=== PATIENT | female | born 1950 | race Caucasian/White ===

== ENCOUNTER → 2017-03-10 10:05 | Outpatient (CLI) | payer MEDICARE, OTHER, SELFPAY ==
[2017-03-10 12:19] LABS: Absolute Lymphocyte Count 1.95 X10^3/ul (0.83-4.51); Absolute Neutrophil Count 3.7 X10^3/uL (2.0-7.7); Basophil# 0.02 X10^3/uL; Basophil% 0.3 % (0-1); Eosinophil# 0.23 X10^3/uL; Eosinophils% 3.6 % (0-5); Hemoglobin 13.3 g/dl (12.0-15.0); Lymphocyte # 1.95 X10^3/ul (4.0); Lymphocyte % 30.3 % (19-41); Mean Corp Hgb Conc 32.4 g/gl (32-36); Mean Corpuscular Hgb 29.4 pg (27.0-32.0); Mean Corpuscular Volume 90.5 fL (81-99); Mean Platelet Vol. 10.4 fl (6.2-12.0); Monocyte% 7.8 % (0-10); Neutrophil # 3.72 X10^3/uL (2.7-7.7); Neutrophil % 57.8 % (47-70); Platelet Count 312 K/mm3 (150-450); RBC Distribution Width CV 12.4 % (11.6-14.6); RBC Distribution Width SD 40.2 fl (35.1-43.9); Red Blood Count 4.53 M/mm3 (4.2-5.4); White Blood Count 6.4 K/mm3 (4.4-11.0)
[2017-03-10 12:33] LABS: ALB/GLOB Ratio 1.1 RATIO (0.9-2.4); AST(SGOT) 23 U/L (15-37); Alanine Aminotransfer ALT/SGPT 25 U/L (13-56); Albumin, Serum 3.8 g/dL (3.2-5.0); Alkaline Phosphatase 57 U/L (45-117); Anion Gap 6 (5-15); BUN 16 mg/dL (7-18); BUN/Creat Ratio 19.7 RATIO (10-20); Calcium,Total 9.4 mg/dL (8.5-10.1); Chloride 105 mmol/L (98-107); Creatinine, Serum 0.81 mg/dL (0.55-1.02); EST Glomerular Filtration Rate 74 mL/min (>60); Est Glom Filt Rate - Afr Amer 90 mL/min (>60); Globulin 3.6 g/dL (2.2-4.2); Glucose 88 mg/dL (70-110); Protein, Total 7.4 g/dL (6.4-8.2); Sodium Level 142 mmol/L (136-145); T4 Total, Thyroxin 11.9 ug/dL (4.8-13.9); Thyroid Stim Hormone (TSH) 0.05 uIU/mL (0.358-3.74)
[2017-03-10 12:40] LABS: POSITIVE COUNT NO; POSITIVE DIFFERENTIAL NO; POSITIVE MORPHOLOGY NO
== END ==
PROVIDERS: Family Provider Family Medicine; PCP Family Medicine; Visit Provider Family Medicine
DX: E03.9 Hypothyroidism, unspecified (principal); R53.83 Other fatigue
CPT/HCPCS: 36415; 80053; 84436; 84443; 85025

== ENCOUNTER → 2017-04-20 07:29 | Outpatient (CLI) | payer MEDICARE, OTHER, SELFPAY ==
--- NOTE | 2017-04-20 07:32 | HPBI_ITS ---
MAMMOGRAPHY - BILATERAL SCREENING REASON FOR EXAM: Female, 67 years old. Routine annual screening examination. PERTINENT HISTORY: Grandmother with breast cancer. TECHNIQUE: Digital bilateral breast albert (3D mammographic acquisition) in the CC and MLO projections. 2-D mediolateral oblique (MLO) and craniocaudad (CC) views of both breasts were obtained. CAD: Full Field Digital Mammography with Computer Added Detection was performed. COMPARISON: Comparison is made with prior study dated April 18, 2016 and March 11, 2015. FINDINGS: Breast Composition: The breasts are almost entirely fatty. There are no dominant masses or suspicious calcifications. Stable benign-appearing bilateral axillary lymph nodes. No other significant abnormalities are identified. There has been no significant change since the prior study. HPBI/SCREENING MAMM (CAD), BILAT IMPRESSION: Stable bilateral screening mammogram. Yearly follow-up mammogram recommended. (A) ASSESSMENT CATEGORY: BIRADS Category 2: Benign. A letter regarding these results will be sent to the patient by the facility within 30 days. Approximately 10% of breast cancers are not detected by mammography. A normal mammogram should not delay biopsy of a clinically suspicious abnormality. [id number] Electronically Signed: Maurisio Aquino MD at 8:56 EDT Tel [phone], Service support ,
== END ==
PROVIDERS: Family Provider Family Medicine; PCP Family Medicine; Visit Provider Family Medicine
DX: Z12.31 Encounter for screening mammogram for malignant neoplasm of breast (principal)
CPT/HCPCS: 77063; 77067

== ENCOUNTER → 2017-04-21 17:35 | Outpatient (CLI) | payer MEDICARE, OTHER, SELFPAY | PROVIDERS: Family Provider Family Medicine; PCP Family Medicine; Visit Provider Family Medicine | DX: R05 Cough (principal) | CPT/HCPCS: 87804 ==

== ENCOUNTER → 2017-05-31 08:55 | Outpatient (CLI) | payer MEDICARE, OTHER, SELFPAY ==
[2017-05-31 10:07] LABS: Thyroid Stim Hormone (TSH) 0.66 uIU/mL (0.358-3.74)
== END ==
PROVIDERS: Family Provider Family Medicine; PCP Family Medicine; Visit Provider Family Medicine
DX: E03.9 Hypothyroidism, unspecified (principal)
CPT/HCPCS: 36415; 84443

== ENCOUNTER → 2017-11-14 09:40 | Outpatient (CLI) | payer MEDICARE, OTHER, SELFPAY ==
--- NOTE | 2017-11-14 14:13 | PFT ---
INTRODUCTION: The patient is a 67-year-old female that presents for pulmonary function studies secondary to a diagnosis of bronchiectasis. Respiratory therapy reports good patient effort. Bronchodilators were used during testing. INTERPRETATION: Forced expiration spirometry demonstrates the presence of a moderate large airways obstructive ventilatory defect. There was no significant response to aerosolized bronchodilators. Spirograms and flow volume loop are consistent with obstructive lung disease. Body plethysmography was performed and reveals an elevated RV to 148% of predicted, indicative of underlying air trapping. Diffusing capacity by single breath CO is mildly reduced at 67% of predicted. When compared to previous pulmonary function studies dated 2016, there has been a 14% reduction in DLCO. IMPRESSION: These pulmonary function studies demonstrate the presence of an irreversible moderate large airways obstructive ventilatory defect with associated air trapping and mild reduction in diffusing capacity.
== END ==
PROVIDERS: Family Provider Family Medicine; PCP Family Medicine; Referring Provider Internal Medicine Critical Care Medicine; Visit Provider Internal Medicine Critical Care Medicine
DX: J45.40 Moderate persistent asthma, uncomplicated (principal); J47.9 Bronchiectasis, uncomplicated
CPT/HCPCS: 94060; 94726; 94729

== ENCOUNTER → 2017-11-17 10:48 | Outpatient (CLI) | payer MEDICARE, OTHER, SELFPAY ==
[2017-11-17 11:00] VITALS: PULSE 100; PULSE 82; PULSE 86; PULSE 91; PULSE 94; PULSE 97; PULSE 99; O2SAT 90; O2SAT 91; O2SAT 92; O2SAT 93; O2SAT 97
--- NOTE | 2017-11-17 13:02 | PCM.PSN.6M ---
PSN 6 Minute Walk Test - 6 Minute Walk Test 6 Minute Walk Test: 6 Minute Walk Test PSN:6-Minute Walk Test Start: 11/17/17 11:04 Freq: Status: Active Protocol: RESP.6MINW Document 11/17/17 11:00 EW (Rec: 11/17/17 11:07 EW [id number]) 6 Minute Walk Test Date Performed 11/17/17 Time Performed 11:00 Height 5 ft 3 in Weight: 144 lb Weight in Pounds 144.[address]: Catarino Elder Assistive device used: None Pre-test Oxygen Delivery Method Room Air Pulse Ox (%) 97 Pulse Rate (60-100 beats/min) 82 Dyspnea Mini Scale (0-10) 1 Exertion Mini Scale (6-20) 6 1st minute Oxygen Delivery Method Room Air Pulse Ox (%) 93 Pulse Rate (60-100 beats/min) 91 2nd minute Oxygen Delivery Method Room Air Pulse Ox (%) 90 Pulse Rate (60-100 beats/min) 94 3rd minute Oxygen Delivery Method Room Air Pulse Ox (%) 91 Pulse Rate (60-100 beats/min) 99 4th minute Oxygen Delivery Method Room Air Pulse Ox (%) 91 Pulse Rate (60-100 beats/min) 97 5th minute Oxygen Delivery Method Room Air Pulse Ox (%) 90 Pulse Rate (60-100 beats/min) 99 6th minute Oxygen Delivery Method Room Air Pulse Ox (%) 92 Pulse Rate (60-100 beats/min) 100 Post-test Oxygen Delivery Method Room Air Pulse Ox (%) 97 Pulse Rate (60-100 beats/min) 86 Dyspnea Mini Scale (0-10) 3 Exertion Mini Scale (6-20) 8 Full Laps Walked 20 Partial Lap, Number of Tiles Walked 0 Total Distance Walked (ft) 1180 - Interpretation Interpretation: The patient ambulated 1180 feet over the course of 6 minutes beginning on room air without assistive devices or breaks. Pretesting oxygen saturation was noted to be 97% on room air. With ambulation, the wendy oxygen saturation was 90%. This represents a significant exertional oxygen desaturation. - Recommendations Recommendations: There is no indication for the use of supplemental oxygen at this time. However, close interval follow-up is recommended, given the degree of oxygen desaturation noted during this study.
== END ==
PROVIDERS: Family Provider Family Medicine; PCP Family Medicine; Referring Provider Internal Medicine Critical Care Medicine; Visit Provider Internal Medicine Critical Care Medicine
DX: J47.9 Bronchiectasis, uncomplicated (principal); J45.40 Moderate persistent asthma, uncomplicated
CPT/HCPCS: 94618

== ENCOUNTER → 2018-01-09 09:04 | Outpatient (CLI) | payer MEDICARE, OTHER, SELFPAY ==
[2018-01-09 11:28] LABS: Thyroid Stim Hormone (TSH) 3.89 uIU/mL (0.358-3.74)
== END ==
PROVIDERS: Family Provider Family Medicine; PCP Family Medicine; Visit Provider Family Medicine
DX: E03.9 Hypothyroidism, unspecified (principal)
CPT/HCPCS: 36415; 84443

== ENCOUNTER → 2018-04-13 07:54 | Outpatient (CLI) | payer MEDICARE, OTHER, SELFPAY ==
[2018-02-07 07:44] VITALS: BMI 27.1
--- NOTE | 2018-04-13 07:59 | RAD_ITS ---
STUDY: X-RAY - LUMBAR SPINE REASON FOR EXAM: Female, 68 years old. Back pain TECHNIQUE: 3 view(s) of the lumbar spine were obtained. COMPARISON: None FINDINGS: There is a 41 degree thoracolumbar scoliosis with convexity to the right with the apex at L1. There are degenerative changes at L1-L2 and L2-3. No acute fractures. The upper lumbosacral spine is slightly rotated to the left Electronically Signed: Warren Bobby MD at 8:01 EST Tel , Service support , RAD/Lumbar Spine 2 or 3 Views
== END ==
PROVIDERS: Family Provider Family Medicine; PCP Family Medicine; Referring Provider Anesthesiology Pain Medicine; Visit Provider Anesthesiology Pain Medicine
DX: M54.9 Dorsalgia, unspecified (principal)
CPT/HCPCS: 72100

== ENCOUNTER → 2018-04-23 13:05 | Outpatient (CLI) | payer MEDICARE, OTHER, SELFPAY ==
[2018-02-07 07:44] VITALS: BMI 27.1
--- NOTE | 2018-04-23 13:09 | BI_ITS ---
MAMMOGRAPHY - BILATERAL SCREENING REASON FOR EXAM: Female, 68 years old. Routine annual screening examination. PERTINENT HISTORY: FM HX MAT [facility] 68'S TECHNIQUE: Digital bilateral breast albert (3D mammographic acquisition) in the CC and MLO projections. 2-D mediolateral oblique (MLO) and craniocaudad (CC) views of both breasts were obtained. CAD: Full Field Digital Mammography with Computer Added Detection was performed. COMPARISON: None. FINDINGS: Breast Composition: The breasts are almost entirely fatty. There are no dominant masses or suspicious calcifications. No other significant abnormalities are identified. BI/SCREENING MAMM (CAD), BILAT IMPRESSION: Stable bilateral screening mammogram. Yearly follow-up mammogram recommended. (A) ASSESSMENT CATEGORY: BIRADS Category 2: Benign. A letter regarding these results will be sent to the patient by the facility within 30 days. Approximately 10% of breast cancers are not detected by mammography. A normal mammogram should not delay biopsy of a clinically suspicious abnormality. [id number] Electronically Signed: Joi Jasmine, at 17:30 EDT Tel , Service support ,
== END ==
PROVIDERS: Family Provider Family Medicine; PCP Family Medicine; Referring Provider Family Medicine; Visit Provider Family Medicine
DX: Z12.31 Encounter for screening mammogram for malignant neoplasm of breast (principal)
CPT/HCPCS: 77063; 77067

== ENCOUNTER → 2018-04-25 14:51 | Outpatient (CLI) | payer MEDICARE, OTHER, SELFPAY ==
[2018-04-25 14:06] VITALS: BMI 25.3
== END ==
PROVIDERS: Family Provider Family Medicine; PCP Family Medicine; Referring Provider Nurse Practitioner Acute Care; Visit Provider Nurse Practitioner Acute Care
DX: J47.9 Bronchiectasis, uncomplicated (principal)
CPT/HCPCS: 87070; 87077; 87186; 87205; 87633

== ENCOUNTER → 2018-05-25 08:06 | Outpatient (CLI) | payer MEDICARE, OTHER, SELFPAY ==
[2018-04-25 14:06] VITALS: BMI 25.3
--- NOTE | 2018-05-25 08:09 | RAD_ITS ---
STUDY: X-RAY - ESOPHAGUS (BARIUM SWALLOW) WITH FLUOROSCOPY REASON FOR EXAM: Female, 68 years old. Dysphagia for solids. TECHNIQUE: 18 view(s) of the esophagus were obtained following swallowing of barium. FLUOROSCOPY TIME (if supplied): (0:37) minutes/seconds COMPARISON: Comparison is made with prior study dated February 02, 2015. FINDINGS: There is no demonstrated esophageal foreign body. There is no demonstrated stricture or mucosal abnormality. Small sliding hiatal hernia with gastroesophageal reflux. The patient ingested a 12 mm tablet of barium without any difficulty. Normal visualized aortic arch and descending thoracic aorta. Normal visualized pulmonary parenchyma. There are diffuse degenerative changes of the visualized thoracic spine. RAD/Esophagus Only IMPRESSION: Small sliding hiatal hernia with evidence of gastroesophageal reflux. Electronically Signed: Maurisio Aquino, at 14:21 EDT , Service support ,
== END ==
PROVIDERS: Family Provider Family Medicine; PCP Family Medicine; Referring Provider Family Medicine; Visit Provider Family Medicine
DX: K21.9 Gastro-esophageal reflux disease without esophagitis (principal)
CPT/HCPCS: 74220

== ENCOUNTER → 2018-07-30 12:05 | Outpatient (CLI) | payer MEDICARE, OTHER, SELFPAY ==
[2018-04-25 14:06] VITALS: BMI 25.3
--- NOTE | 2018-07-30 12:11 | MRI_ITS ---
STUDY: MRI LUMBAR SPINE WITHOUT CONTRAST REASON FOR EXAM: Female, 68 years old. Back pain TECHNIQUE: Standardized fat and water weighted pulse sequences were obtained in the sagittal and axial planes. COMPARISON: 12/11/2013 FINDINGS: T12-L1: Normal endplates. Normal disc height, hydration and morphology. Normal bilateral facet joints. Normal central canal and bilateral lateral recesses. Normal bilateral intervertebral neural foramina. Normal lumbar lordosis. Severe dextroscoliosis centered at T12/L1. Normal conus medullaris that terminates at the L1/L2. L1-2: No change in the mild broad disc osteophyte complex which produces mild spinal stenosis but no neural foraminal stenosis. L2-3: Severe bilateral facet hypertrophy and moderate ligament flavum hypertrophy. No change in the 2 mm retrolisthesis of L2 on L3 with a mild broad disc protrusion which produces mild spinal stenosis, mild bilateral lateral recess stenosis and severe right neural foraminal stenosis. L3-4: Moderate bilateral facet hypertrophy and ligament flavum hypertrophy. No change in a mild bilobed disc protrusion which produces mild spinal stenosis but no neural foraminal stenosis. L4-5: Moderate bilateral facet hypertrophy and ligament flavum hypertrophy. No change in the mild broad disc protrusion which produces mild spinal stenosis and mild right neural foraminal stenosis. L5-S1: Moderate bilateral facet hypertrophy. No disc protrusion, spinal stenosis, or neural foraminal stenosis. Normal visualized sacral ala. Normal visualized paraspinous soft tissue structures. MRI/Spine Lumbar (Routine) IMPRESSION: No change from 12/11/2013. Electronically Signed: Young Crandall MD at 17:43 EDT Tel , Service support ,
== END ==
PROVIDERS: Family Provider Family Medicine; PCP Family Medicine; Referring Provider Anesthesiology Pain Medicine; Visit Provider Anesthesiology Pain Medicine
DX: M54.9 Dorsalgia, unspecified (principal); M79.606 Pain in leg, unspecified
CPT/HCPCS: 72148

== ENCOUNTER → 2018-11-13 09:36 | Outpatient (CLI) | payer MEDICARE, OTHER, SELFPAY ==
[2018-08-27 13:19] VITALS: BMI 25.3
--- NOTE | 2018-11-14 09:42 | PFT_ITS ---
INTRODUCTION: The patient is a 68-year-old female that presents for pulmonary function studies secondary to a diagnosis of respiratory failure. Respiratory therapy reports good patient effort. Bronchodilators were used during testing. INTERPRETATION: Forced expiration spirometry demonstrates the presence of a moderate large airways obstructive ventilatory defect. There was no significant response to aerosolized bronchodilators. Spirograms are of fair quality and do not plateau indicating slow emptying of the lungs. Body plethysmography was performed and reveals lung volumes to be within normal limits. Diffusing capacity by single breath CO is within normal limits as well. IMPRESSION: Irreversible moderate large airways obstructive ventilatory defect with p reserved lung volumes and diffusing capacity.
== END ==
PROVIDERS: Family Provider Family Medicine; PCP Family Medicine; Referring Provider Nurse Practitioner Acute Care; Visit Provider Nurse Practitioner Acute Care
DX: J47.9 Bronchiectasis, uncomplicated (principal)
CPT/HCPCS: 94060; 94726; 94729

== ENCOUNTER → 2018-11-20 10:50 | Outpatient (CLI) | payer MEDICARE, OTHER, SELFPAY ==
[2018-08-27 13:19] VITALS: BMI 25.3
[2018-11-20 11:37] VITALS: PULSE 100; PULSE 101; PULSE 102; PULSE 104; PULSE 86; PULSE 88; PULSE 98; PULSE 99; O2SAT 86; O2SAT 89; O2SAT 94; O2SAT 96; O2SAT 97; O2SAT 98
--- NOTE | 2018-11-20 11:42 | CPS ---
Patient states upon arrival that she wears O2 at home PRN, and monitors her own oxygen. The patient was started on RA and at the 4th minute the patient dropped to a SpO2 of 86%. 2L was added at that time. The remainder of the test was done on 2L. Rishi [facility]
--- NOTE | 2018-11-20 14:01 | WT_ITS ---
PSN 6 Minute Walk Test - 6 Minute Walk Test 6 Minute Walk Test: 6 Minute Walk Test PSN:6-Minute Walk Test Start: 11/20/18 11:37 Freq: Status: Active Protocol: RESP.6MINW Document 11/20/18 11:37 COCO (Rec: 11/20/18 11:46 [id number]) 6 Minute Walk Test Date Performed 11/20/18 Time Performed 11:00 Height 5 ft [address]: Tawanna Anderson Assistive device used: None Pre-test Oxygen Delivery Method Room Air Pulse Ox (%) 96 Pulse Rate (60-100 beats/min) 86 Dyspnea Mini Scale (0-10) 1 Exertion Mini Scale (6-20) 6 1st minute Oxygen Delivery Method Room Air Pulse Ox (%) 94 Pulse Rate (60-100 beats/min) 99 2nd minute Oxygen Delivery Method Room Air Pulse Ox (%) 89 Pulse Rate (60-100 beats/min) 100 3rd minute Oxygen Delivery Method Room Air Pulse Ox (%) 89 Pulse Rate (60-100 beats/min) 104 H 4th minute Oxygen Delivery Method Room Air Pulse Ox (%) 86 Pulse Rate (60-100 beats/min) 101 H Dyspnea Mini Scale (0-10) 2 Exertion Mini Scale (6-20) 11 5th minute Oxygen Flow Rate (L/min) (L/min) 2 Oxygen Delivery Method Nasal Cannula Pulse Ox (%) 98 Pulse Rate (60-100 beats/min) 98 6th minute Oxygen Flow Rate (L/min) (L/min) 2 Oxygen Delivery Method Nasal Cannula Pulse Ox (%) 97 Pulse Rate (60-100 beats/min) 102 H Dyspnea Mini Scale (0-10) 2 Exertion Mini Scale (6-20) 11 Post-test Oxygen Flow Rate (L/min) (L/min) 2 Oxygen Delivery Method Nasal Cannula Pulse Ox (%) 97 Pulse Rate (60-100 beats/min) 88 Full Laps Walked 22 Partial Lap, Number of Tiles Walked 0 Total Distance Walked (ft) 1298 11/20/18 11:42 Cardiopulmonary Services by Beryl Nelson Patient states upon arrival that she wears O2 at home PRN, and monitors her own oxygen. The patient was started on RA and at the 4th minute the patient dropped to a SpO2 of 86%. 2L was added at that time. The remainder of the test was done on Concha Hitchcockhomero [facility] Initialized on 11/20/18 11:42 - END OF NOTE - Interpretation Interpretation: The patient was noted to be 96% on room air. Patient did desaturate to 86% in the fourth minute of ambulation and was placed on 2 L nasal cannula. Patient was able to complete testing following addition of oxygen. In total, the patie nt traveled 1298 feet over the course of 6 minutes with no assistive devices and one break. These findings are consistent with a respiratory limitation exercise tolerance. - Recommendations Recommendations: No supplemental oxygen is indicated at rest, but patient should be using 2 L nasal cannula with any exertion.
== END ==
PROVIDERS: Family Provider Family Medicine; PCP Family Medicine; Referring Provider Nurse Practitioner Acute Care; Visit Provider Nurse Practitioner Acute Care
DX: J96.11 Chronic respiratory failure with hypoxia (principal)
CPT/HCPCS: 94618

== ENCOUNTER → 2019-05-15 11:12 | Outpatient (CLI) | payer MEDICARE, OTHER, SELFPAY ==
[2018-12-27 06:12] VITALS: BMI 23.1
[2019-05-15 13:04] LABS: T4 Total, Thyroxin 13.3 ug/dL (4.8-13.9); Thyroid Stim Hormone (TSH) 0.29 uIU/mL (0.358-3.74)
== END ==
PROVIDERS: PCP Family Medicine; Referring Provider Family Medicine; Visit Provider Family Medicine
DX: E03.9 Hypothyroidism, unspecified (principal)
CPT/HCPCS: 36415; 84436; 84443

== ENCOUNTER → 2019-05-29 09:15 | Outpatient (CLI) | payer MEDICARE, OTHER, SELFPAY ==
[2018-12-27 06:12] VITALS: BMI 23.1
--- NOTE | 2019-05-29 09:17 | BI_ITS ---
MAMMOGRAPHY - BILATERAL SCREENING REASON FOR EXAM: Female, 69 years old. Routine annual screening examination. PERTINENT HISTORY: Grandmother with breast cancer. TECHNIQUE: Digital bilateral breast janeth (3D mammographic acquisition) in the CC and MLO projections. 2-D mediolateral oblique (MLO) and craniocaudad (CC) views of both breasts were obtained. CAD: Full Field Digital Mammography with Computer Added Detection was performed. COMPARISON: Comparison is made with prior examination dated April 23, 2018 and April 21, 2007. FINDINGS: Breast Composition: The breasts are almost entirely fatty. There are no dominant masses or suspicious calcifications. No other significant abnormalities are identified. There has been no significant change since the prior study. BI/SCREEN MAMM (CAD) W/JANETH BILAT IMPRESSION: Stable bilateral screening mammogram. Yearly follow-up mammogram recommended. (A) ASSESSMENT CATEGORY: BIRADS Category 1: Negative. A letter regarding these results will be sent to the patient by the facility within 30 days. Approximately 10% of breast cancers are not detected by mammography. A normal mammogram should not delay biopsy of a clinically suspicious abnormality. [id number] Electronically Signed: Maurisio Aquino, at 11:16 EDT , Service support ,
--- NOTE | 2019-05-29 09:21 | BD_ITS ---
STUDY: DUAL ENERGY X-RAY ABSORPTIOMETRY / DXA REASON FOR EXAM: Female, 69 years old. KNOCKOUT MAN -- HX OF HRT FOR SHORT WHILE IN PAST -- HX OF SMOKING- QUIT 15 YRS AGO -- USES STEROID INHALER DAILY -- TAKES THYROID MEDICATION -- TAKES CALCIUM AND MULTIVITAMIN -- DOES LITTLE EXERCISE -- BEBO OF 5 INCHES -- PT HAS SEVERE SCOLIOSIS- INCLUDED FOREARM FOR REVIEW D/T AP LUMBAR BEING NONDIAGNOSTIC FOR BMD TECHNIQUE: Bone Mineral Density (BMD) measurements of lumbar spine and bilateral hips were obtained. COMPARISON: Comparison is made with prior study dated May 30, 2016. FINDINGS: Lumbar Spine (L1-L4): g/cm2 (1.234) / T-score (0.6) / Z-score (2.3) Findings are suggestive of normal bone density with a low fracture risk. Left Femur Total: g/cm2 (0.837) / T-score (-1.4) / Z-score (0.2) Left Femoral Neck: g/cm2 (0.840) / T-score (-1.4) / Z-score (0.3) Right Femur Total: g/cm2 (0.691) / T-score (-2.5) / Z-score (-1.0) Right Femoral Neck: g/cm2 (0.786) / T-score (-1.8) / Z-score (0.1) Left Forearm: g/cm2 (0.673) / T-score (-2.3) / Z-score (-0.4) The T-Scores on the most recent prior examination were: Lumbar Spine (L1-L4): There has been improvement of bone density since the previous examination. Left Femur Total: which represents a worsening of 14.8%. Right Femur Total: which represents a worsening of 18.3%. BD/Dexa Bone Density Study IMPRESSION: The patient is considered osteoporotic as outlined below according to World Regis Organization (WHO) criteria with a high fracture risk. There has been worsening of bone density since the previous examination. Reference Information: The T-score is the number of standard deviations above or below the standard which is normal for young adults at their peak bone mineral density. The World Health Organization (WHO) interprets the T-scores as follows: Above -1 Normal bone density Between -1 and -2.5 Osteopenia Equal to / or below -2.5 Osteoporosis As a practical clinical guideline, osteopenia may be graded as follows: Mild -1 through -1.5 Moderate -1.6 through -2.0 Severe -2.1 through -2.4 The Z-score is the number of standard deviations above or below age-matched controls. A Z-score of less than -1.5 would be considered abnormal. References: 1. NIH Osteoporosis and Related Bone Diseases http://www.osteo.org 2. International Society for Clinical Densitometry http://www.iscd.org 3. National Osteoporosis Foundation http://www.nof.org Electronically Signed: Maurisio Aquino, at 10:02 EDT , Service support ,
== END ==
PROVIDERS: PCP Family Medicine; Referring Provider Family Medicine; Visit Provider Family Medicine
DX: N95.9 Unspecified menopausal and perimenopausal disorder (principal); M81.0 Age-related osteoporosis without current pathological fracture; Z12.31 Encounter for screening mammogram for malignant neoplasm of breast
CPT/HCPCS: 77063; 77067; 77080

== ENCOUNTER 2020-05-28 09:32 | Outpatient (RCR) | payer MEDICARE, SELFPAY ==
[2019-10-02 07:57] VITALS: BMI 23.1
== END 2020-07-14 23:59 ==
LOC: IMMUN 09:32
PROVIDERS: PCP Family Medicine; Referring Provider Family Medicine; Visit Provider Family Medicine
DX: Z23 Encounter for immunization (principal)
CPT/HCPCS: 0001A; 0002A; 91300

== ENCOUNTER → 2020-06-10 10:17 | Outpatient (CLI) | payer MEDICARE, SELFPAY ==
[2019-10-02 07:57] VITALS: BMI 23.1
[2020-06-10 12:41] LABS: Absolute Lymphocyte Count 2.23 X10^3/uL (0.83-4.51); Absolute Neutrophil Count 4.4 X10^3/uL (2.0-7.7); Basophil# 0.04 X10^3/uL; Basophil% 0.5 % (0-1); Eosinophil# 0.26 X10^3/uL; Eosinophils% 3.5 % (0-5); Hematocrit 42.8 % (37-47); Hemoglobin 13.2 g/dL (12.0-15.0); Lymphocyte # 2.23 X10^3/ul (0.83-4.51); Lymphocyte % 29.9 % (19-41); Mean Corp Hgb Conc 30.8 g/dL (32-36); Mean Corpuscular Hgb 28.3 pg (27.0-32.0); Mean Corpuscular Volume 91.6 fL (81-99); Monocyte# 0.49 X10^3/uL; Monocyte% 6.6 % (0-10); NRBC Flagged by Analyzer 0 % (0-5); Neutrophil # 4.41 X10^3/uL (2.7-7.7); Neutrophil % 59.2 % (47-70); Platelet Count 427 K/mm3 (150-450); RBC Distribution Width CV 12.1 % (11.6-14.6); RBC Distribution Width SD 40.6 fl (35.1-43.9); Red Blood Count 4.67 M/mm3 (4.2-5.4); White Blood Count 7.5 K/mm3 (4.4-11.0)
[2020-06-10 13:08] LABS: Anion Gap 5 (5-15); BUN 21 mg/dL (7-18); BUN/Creat Ratio 22.7 RATIO (10-20); Calcium,Total 9.4 mg/dL (8.5-10.1); Chloride 103 mmol/L (98-107); Creatinine, Serum 0.92 mg/dL (0.55-1.02); EST Glomerular Filtration Rate 63 mL/min (>60); Est Glom Filt Rate - Afr Amer 77 mL/min (>60); Glucose 85 mg/dL (74-106); Magnesium 2.1 mg/dL (1.6-2.6); Sodium Level 138 mmol/L (136-145); T4 Total, Thyroxin 14.3 ug/dL (4.8-13.9); Thyroid Stim Hormone (TSH) 0.08 uIU/mL (0.358-3.74)
== END ==
PROVIDERS: PCP Family Medicine; Referring Provider Family Medicine; Visit Provider Family Medicine
DX: E03.9 Hypothyroidism, unspecified (principal); K21.9 Gastro-esophageal reflux disease without esophagitis
CPT/HCPCS: 36415; 80048; 83735; 84436; 84443; 85025

== ENCOUNTER → 2020-07-21 11:00 | Outpatient (CLI) | payer MEDICARE, SELFPAY ==
[2019-10-02 07:57] VITALS: BMI 23.1
--- NOTE | 2020-07-21 11:02 | BI_ITS ---
MAMMOGRAPHY - BILATERAL SCREENING REASON FOR EXAM: Female, 70 years old. Routine annual screening examination. PERTINENT HISTORY: Grandmother with breast cancer. TECHNIQUE: Digital bilateral breast albert (3D mammographic acquisition) in the CC and MLO projections. 2-D mediolateral oblique (MLO) and craniocaudad (CC) views of both breasts were obtained. CAD: Full Field Digital Mammography with Computer Added Detection was performed. COMPARISON: Comparison is made with prior study dated 05/29/2019 and 04/23/2018. FINDINGS: Breast Composition: The breasts are almost entirely fatty. There are no dominant masses or suspicious calcifications. Stable benign-appearing left axillary lymph nodes. No other significant abnormalities are identified. There has been no significant change since the prior study. BI/SCREENING MAMM (CAD), BILAT IMPRESSION: Stable bilateral screening mammogram. Yearly follow-up mammogram recommended. (A) ASSESSMENT CATEGORY: BIRADS Category 2: Benign. A letter regarding these results will be sent to the patient by the facility within 30 days. Approximately 10% of breast cancers are not detected by mammography. A normal mammogram should not delay biopsy of a clinically suspicious abnormality. [id number] Electronically Signed: Maurisio Aquino MD at 12:22 EDT , Service support ,
== END ==
PROVIDERS: PCP Family Medicine; Referring Provider Family Medicine; Visit Provider Family Medicine
DX: Z12.31 Encounter for screening mammogram for malignant neoplasm of breast (principal); Z00.00 Encounter for general adult medical examination without abnormal findings
CPT/HCPCS: 77067

== ENCOUNTER → 2020-08-07 09:20 | Outpatient (CLI) | payer MEDICARE, SELFPAY ==
[2019-10-02 07:57] VITALS: BMI 23.1
[2020-08-07 10:39] LABS: Thyroid Stim Hormone (TSH) 5.95 uIU/mL (0.358-3.74)
== END ==
PROVIDERS: PCP Family Medicine; Visit Provider Family Medicine
DX: E03.9 Hypothyroidism, unspecified (principal)
CPT/HCPCS: 36415; 84443

== ENCOUNTER → 2020-08-13 11:08 | Outpatient (CLI) | payer MEDICARE, SELFPAY ==
[2019-10-02 07:57] VITALS: BMI 23.1
--- NOTE | 2020-08-13 11:10 | RAD_ITS ---
STUDY: X-RAY CHEST REASON FOR EXAM: Female, 70 years old. BRONCHIECTASIS TECHNIQUE: PA and lateral views of the chest. COMPARISON: Comparison is made with prior examination dated 04/02/2016. FINDINGS: Mild increased linear markings at the lung bases suggests mild mild scarring. There is no demonstrated pleural abnormality. Normal size heart. Normal mediastinum and gege. Normal visualized pulmonary arteries. There is atherosclerotic calcification of the aortic arch with tortuosity. There are diffuse degenerative changes of the visualized thoracic spine. Dextroscoliosis. Normal visualized ribs, clavicles, and shoulders. There is no demonstrated abnormality of the visualized soft tissue structures of the upper abdomen. RAD/Chest PA and Lateral IMPRESSION: Mild increased markings at the lung bases suggestive of scarring. Electronically Signed: Maurisio Aquino MD at 15:01 EDT , Service support ,
== END ==
PROVIDERS: PCP Family Medicine; Referring Provider Family Medicine; Visit Provider Family Medicine
DX: J47.9 Bronchiectasis, uncomplicated (principal)
CPT/HCPCS: 71046

== ENCOUNTER → 2020-10-07 11:41 | Outpatient (CLI) | payer MEDICARE, SELFPAY ==
[2020-10-07 15:45] LABS: Thyroid Stim Hormone (TSH) 0.69 uIU/mL (0.358-3.74)
== END ==
PROVIDERS: PCP Family Medicine; Referring Provider Family Medicine; Visit Provider Family Medicine
DX: E03.9 Hypothyroidism, unspecified (principal)
CPT/HCPCS: 36415; 84443

== ENCOUNTER → 2021-08-20 | Outpatient (CLI) | payer MEDICARE, SELFPAY ==
[2021-08-20 18:23] LABS: T4 Total, Thyroxin 10.9 ug/dL (4.8-13.9)
== END | disposition home or self-care (01) ==
LOC: MFPLAB 14:25
PROVIDERS: PCP Family Medicine; Referring Provider Family Medicine; Visit Provider Family Medicine
DX: E03.9 Hypothyroidism, unspecified (principal)
CPT/HCPCS: 36415; 84436; 84443

== ENCOUNTER → 2021-08-26 | Outpatient (CLI) | payer MEDICARE, SELFPAY ==
--- NOTE | 2021-08-26 12:28 | BI_ITS ---
MAMMOGRAPHY - BILATERAL SCREENING REASON FOR EXAM: Female, 71 years old. Routine annual screening examination. PERTINENT HISTORY: Grandmother with breast cancer. TECHNIQUE: Digital bilateral breast janeth (3D mammographic acquisition) in the CC and MLO projections. 2-D mediolateral oblique (MLO) and craniocaudad (CC) views of both breasts were obtained. CAD: Full Field Digital Mammography with Computer Added Detection was performed. COMPARISON: Comparison is made with prior study dated 03/23/2020 and 05/29/2019. FINDINGS: Breast Composition: The breasts are almost entirely fatty. There are no dominant masses or suspicious calcifications. Stable small benign-appearing bilateral axillary lymph nodes. No other significant abnormalities are identified. There has been no significant change since the prior study. BI/SCRN MAMM (CAD)W/JANETH BILAT IMPRESSION: Stable bilateral screening mammogram. Yearly follow-up mammogram recommended. (A) ASSESSMENT CATEGORY: BIRADS Category 2: Benign. A letter regarding these results will be sent to the patient by the facility within 30 days. Approximately 10% of breast cancers are not detected by mammography. A normal mammogram should not delay biopsy of a clinically suspicious abnormality. [id number] Electronically Signed: Maurisio Aquino MD at 13:14 EDT ,
== END | disposition home or self-care (01) ==
LOC: OPBI 12:26
PROVIDERS: PCP Family Medicine; Visit Provider Family Medicine
DX: Z12.31 Encounter for screening mammogram for malignant neoplasm of breast (principal); Z80.3 Family history of malignant neoplasm of breast
CPT/HCPCS: 77063; 77067

== ENCOUNTER → 2021-12-13 | Outpatient (CLI) | payer MEDICARE, SELFPAY ==
--- NOTE | 2021-12-13 15:33 | RAD_ITS ---
EXAM: XR LUMBOSACRAL SPINE, 2 OR 3 VIEWS CLINICAL INDICATION: DEGENERATION TECHNIQUE: Frontal and lateral views of the lumbar spine and sacrum. This report was created using [employer] report generation technology. COMPARISON: None. FINDINGS: VERTEBRAE: Prominent rotary scoliosis centered at the thoracolumbar junction region, moderate to marked dextroscoliosis centered at about L1-L2 and prominent kyphosis at the lower thoracic and accentuated lordosis of the lumbar spine. No obvious fracture is seen. No spondylolisthesis. No significant facet arthropathy. DISC SPACES: No acute findings. Disc spaces are maintained. GASTROINTESTINAL TRACT: Moderate stool in the rectosigmoid. Small hiatal hernia with gas and surgical clips near the esophageal hiatus. Unremarkable lung bases. Included bowel gas pattern is non-obstructive. RAD/Lumbar Spine 2 or 3 Views IMPRESSION: Advanced thoracolumbar scoliosis. Moderate stool in the rectosigmoid. Postoperative changes and hiatal hernia. Electronically Signed: Beba Miramontes MD at 7:22 EST ,
--- NOTE | 2021-12-13 15:40 | RAD_ITS ---
EXAM: XR THORACIC SPINE, 3 VIEWS CLINICAL INDICATION: DEGENERATION TECHNIQUE: Frontal, lateral and swimmer''s views of the thoracic spine. This report was created using [employer] report generation technology. COMPARISON: None. FINDINGS: VERTEBRAE: Moderate kyphosis of the thoracolumbar junction on the lateral view and moderate rotary dextrorotoscoliosis on the frontal view. Multilevel vacuum disks, most pronounced at what appears to be T11-T12. Marked disc space narrowing and mild endplate sclerosis at multiple cervical spinal levels with straightening of the usual lordotic curvature. Preserved vertebral body height. No fracture. No spondylolisthesis. No significant facet arthropathy. DISC SPACES: See above. LUNGS AND PLEURAL SPACES: No significant infiltrates in the medial lungs. Normal heart size. Mild peripheral calcification of the aortic arch. MEDIASTINUM: Surgical clips in the expected region of the left esophageal hiatus. Suspicion of small hiatal hernia or hernia repair. RAD/Thoracic Spine 3 Views IMPRESSION: 1. Moderate rotary dextroscoliosis of the thoracolumbar region and degenerative cervical and thoracolumbar spine changes. Lumbar spine not fully included. 2. No obviously acute spine abnormality. Postoperative change at the esophageal hiatus and small suspected hiatal hernia or hernia repair. Electronically Signed: Beba Miramontes MD at 6:10 EST ,
== END | disposition home or self-care (01) ==
LOC: RAD 15:31
PROVIDERS: PCP Family Medicine; Referring Provider Anesthesiology Pain Medicine; Visit Provider Anesthesiology Pain Medicine
DX: M51.26 Other intervertebral disc displacement, lumbar region (principal); M51.36 Other intervertebral disc degeneration, lumbar region
CPT/HCPCS: 72072; 72100

== ENCOUNTER → 2022-09-06 | Outpatient (CLI) | payer MEDICARE, SELFPAY ==
[2022-09-06 18:19] LABS: Vitamin D,25 Hydroxy 32.2 ng/mL
[2022-09-06 18:53] LABS: Cholesterol 217 mg/dL (200); High Density Lipoprotein 76 mg/dL; T4 Total, Thyroxin 12.9 ug/dL (4.8-13.9); Thyroid Stim Hormone (TSH) 1.19 uIU/mL (0.358-3.74); Triglycerides 123 mg/dL; Very Low Density Lipoprotein 25 mg/dL (5-40)
== END | disposition home or self-care (01) ==
LOC: MFPLAB 15:38
PROVIDERS: PCP Family Medicine; Visit Provider Family Medicine
DX: Z13.220 Encounter for screening for lipoid disorders (principal); E03.9 Hypothyroidism, unspecified; M81.0 Age-related osteoporosis without current pathological fracture
CPT/HCPCS: 36415; 80061; 82306; 84436; 84443

== ENCOUNTER → 2022-09-08 | Outpatient (CLI) | payer MEDICARE, SELFPAY ==
--- NOTE | 2022-09-08 07:16 | BI_ITS ---
MAMMOGRAPHY - BILATERAL SCREENING REASON FOR EXAM: Female, 72 years old. Routine annual screening examination. PERTINENT HISTORY: Grandmother with breast cancer. TECHNIQUE: Digital bilateral breast janeth (3D mammographic acquisition) in the CC and MLO projections. 2-D mediolateral oblique (MLO) and craniocaudad (CC) views of both breasts were obtained. CAD: Full Field Digital Mammography with Computer Added Detection was performed. COMPARISON: Comparison is made with prior study dated August 26, 2021 and July 21, 2020. FINDINGS: Breast Composition: The breasts are almost entirely fatty. There are no dominant masses or suspicious calcifications. Stable small benign-appearing bilateral axillary lymph nodes. No other significant abnormalities are identified. There has been no significant change since the prior study. BI/SCRN MAMM (CAD)W/JANETH BILAT IMPRESSION: Stable bilateral screening mammogram. Yearly follow-up mammogram recommended. (A) ASSESSMENT CATEGORY: BIRADS Category 2: Benign. A letter regarding these results will be sent to the patient by the facility within 30 days. Approximately 10% of breast cancers are not detected by mammography. A normal mammogram should not delay biopsy of a clinically suspicious abnormality. [id number] Electronically Signed: Maurisio Aquino MD at 8:29 EDT ,
== END | disposition home or self-care (01) ==
LOC: OPBI 07:14
PROVIDERS: PCP Family Medicine; Referring Provider Family Medicine; Visit Provider Family Medicine
DX: Z12.31 Encounter for screening mammogram for malignant neoplasm of breast (principal)
CPT/HCPCS: 77063; 77067

== ENCOUNTER → 2023-09-29 | Outpatient (CLI) | payer MEDICARE, SELFPAY ==
[2023-09-29 15:24] LABS: T4 Total, Thyroxin 12.4 ug/dL (4.8-13.9); Thyroid Stim Hormone (TSH) 0.421 uIU/mL (0.358-3.740)
== END | disposition home or self-care (01) ==
LOC: MFPLAB 11:50
PROVIDERS: PCP Family Medicine; Visit Provider Family Medicine
DX: E03.9 Hypothyroidism, unspecified (principal)
CPT/HCPCS: 36415; 84436; 84443

== ENCOUNTER → 2023-10-03 | Outpatient (CLI) | payer MEDICARE, SELFPAY ==
--- NOTE | 2023-10-03 14:01 | BI_ITS ---
MAMMOGRAPHY - BILATERAL SCREENING REASON FOR EXAM: Female, 73 years old. Routine annual screening examination. PERTINENT HISTORY: Grandmother with breast cancer. TECHNIQUE: Digital bilateral breast janeth (3D mammographic acquisition) in the CC and MLO projections. 2-D mediolateral oblique (MLO) and craniocaudad (CC) views of both breasts were obtained. CAD: Full Field Digital Mammography with Computer Added Detection was performed. COMPARISON: Comparison is made with prior study September 08, 2022 and August 26, 2021. FINDINGS: Breast Composition: The breasts are almost entirely fatty. There are no dominant masses or suspicious calcifications. No other significant abnormalities are identified. There has been no significant change since the prior study. BI/SCRN MAMM (CAD)W/JANETH BILAT IMPRESSION: Stable bilateral screening mammogram. Yearly follow-up mammogram recommended. (A) ASSESSMENT CATEGORY: BIRADS Category 1: Negative. A letter regarding these results will be sent to the patient by the facility within 30 days. Approximately 10% of breast cancers are not detected by mammography. A normal mammogram should not delay biopsy of a clinically suspicious abnormality. [id number] Electronically Signed: Maurisio Aquino MD at 15:17 EDT ,
--- NOTE | 2023-10-03 14:27 | BD_ITS ---
STUDY: DUAL ENERGY X-RAY ABSORPTIOMETRY / DXA REASON FOR EXAM: Female, 73 years old. N95.9 TECHNIQUE: Bone Mineral Density (BMD) measurements of both forearms were obtained. COMPARISON: Comparison is made with prior study May 29, 2019. FINDINGS: Right Forearm: g/cm2 (0.493) / T-score (-1.6) / Z-score (0.9) Left Forearm: g/cm2 (0.488) / T-score (-1.7) / Z-score (0.8) BD/Dexa Bone Density/Append Skel IMPRESSION: The patient is considered osteopenic as outlined below according to World Regis Organization (WHO) criteria with a moderate fracture risk. There has been improvement of bone density since the previous examination. Reference Information: The T-score is the number of standard deviations above or below the standard which is normal for young adults at their peak bone mineral density. The World Health Organization (WHO) interprets the T-scores as follows: Above -1 Normal bone density Between -1 and -2.5 Osteopenia Equal to / or below -2.5 Osteoporosis As a practical clinical guideline, osteopenia may be graded as follows: Mild -1 through -1.5 Moderate -1.6 through -2.0 Severe -2.1 through -2.4 The Z-score is the number of standard deviations above or below age-matched controls. A Z-score of less than -1.5 would be considered abnormal. References: 1. NIH Osteoporosis and Related Bone Diseases www osteo.org 2. International Society for Clinical Densitometry www iscd.org 3. National Osteoporosis Foundation www nof.org Electronically Signed: Maurisio Aquino MD at 10:02 EDT ,
== END | disposition home or self-care (01) ==
LOC: OPBD 14:01
PROVIDERS: PCP Family Medicine; Referring Provider Family Medicine; Visit Provider Family Medicine
DX: Z12.31 Encounter for screening mammogram for malignant neoplasm of breast (principal); M81.0 Age-related osteoporosis without current pathological fracture
CPT/HCPCS: 77063; 77067; 77081

== ENCOUNTER 2023-10-30 10:00 | Outpatient (RCR) | payer MEDICARE, SELFPAY ==
--- NOTE | 2023-09-05 11:21 | HP.PTEVAL_ITS ---
Patient's Visit Information Visit Information Visit Information: PATIENCE VALDES is a 73 year old F referred to Physical Therapy by Dr. Jennifer Hood MD with a diagnosis of Kyphoscoliosis and LBP. Date of Evaluation: 09/05/23 Physical Therapist: Quintin Garcia, PT, ATC Visit Plan Frequency: 1x/Week Duration: 2-4 Weeks Plan: Issue and instruct pt on HEP of core stabilization and L/S stretches Subjective Subjective: Pt reports a chronic Hx of LBP for approximately 4-5 years. Pt notes the pain has progressively worsened over this time span. Pt reports her pain limits her ability to perform bending forward activity, as well as it limits her ability to ambulate very far. Pt reports her pain radiates into B glute regions at this time. Pt reports sleep difficulty at this time as the pain awakens her around 2-3:00 in the morning. Pt has has had recent xrays which revealed kyphoscoliosis and DDD, as well as OA. Pt reports she is still able to perform house hold chores, but she is very limited secondary to pain. Pt also notes she has stairs at home and has significant difficulty with negotiating them secondary to R LB and hip pain. 3/10 pain at rest, 8/10 pain at its worst (when she is negotiating stairs) Pain LBP: Pain Intensity (Out of 10): 3 Pain Intensity Range: 8 Objective Objective: Neuro: B LE sensation is WNL to lgiht touch. MMT: B LE's are equal in strength and have no limitations ROM: Pt has full L/S ROM in all planes sit to stand 30 sec: Pt able to perform 5 reps Balance/Special Test Scores Oswestry Low Back Score: 27 Goals Goal 1:: Pt will be I with HEP in 1-2 visits Goal Time Frame: 2-4 Weeks Goal 2:: Decrease LBP x 50% to aid with sleep Goal Time Frame: 2-4 Weeks Goal 3:: Pt will perform 8 sit to stands in 30 seconds with no UE's to aid with community mobility Goal Time Frame: 2-4 Weeks Rehabilitation Potential Physical Therapy Diagnosis: Pt has back pain and difficulty with IADL's se condary to degenerative changes throughout her spine Rehabilitation Potential: Good Anticipated Interventions Patient/Client Instruction: Educate patient on: Condition and Plan of Care For the Purpose of:: To improve self management Therapeutic Exercise to Include: Strength training, Flexibilty training, Active ROM and Dynamic Lumbar Stabilization For the Purpose of:: To decrease pain and To improve muscle performance and motor function Text: Thank you for the opportunity to evaluate your patient. For Medicare and Medicare HMO plans, please review the plan of care and approve it. It will need to be FAXED BACK to us at [phone] for Medicare purposes. For Medicare only, by signing this I certify the plan of care. Please let me know if there are questions or concerns regarding this plan of care. Physician Signature: Date:
--- NOTE | 2023-10-30 10:23 | HP.PTDCSUM ---
Discharge Summary D/C summary: It has been my pleasure to treat PATIENCE VALDES referred by Dr. Jennifer Hood MD, with the diagnosis of Kyphoscoliosis and LBP for a total of 3 visit(s). Discharge Date: Please see the following information for a summary of their discharge status. Subjective Subjective: I am all better. I dont have any more pain now Pain LBP: Pain Intensity (Out of 10): 0 Overall Improvement % Improvement: 100 Objective Objective/Function: Pt is now I with HEP 0/10 LBP Pt is able to perform 8 sit to stand transfers in 19 seconds Goals Goal 1:: Pt will be I with HEP in 1-2 visits Goal Progress: Goal Met Goal 2:: Decrease LBP x 50% to aid with sleep Goal Progress: Goal Met Goal 3:: Pt will perform 8 sit to stands in 30 seconds with no UE's to aid with community mobility Goal Progress: Goal Met Plan Plan: Discharge to HEP D/C Information d/c sentence: If there are questions or concerns regarding this patient's physical therapy, please feel free to call me at [phone]. Thank you for the referral of this patient. Sincerely, Quintin Garcia, PT, ATC Balance/Gait/Functional tests Balance/Special Test Scores Oswestry Low Back Score: 6 Improvement % Improvement: 100
== END 2023-10-30 10:43 | disposition home or self-care (01) ==
LOC: PT 10:00
PROVIDERS: PCP Family Medicine; Referring Provider Family Medicine; Visit Provider Family Medicine
DX: M41.86 Other forms of scoliosis, lumbar region (principal); G89.29 Other chronic pain
CPT/HCPCS: 97110; 97161; 97530

== ENCOUNTER → 2023-11-14 | Outpatient (CLI) | payer MEDICARE, SELFPAY ==
--- NOTE | 2023-11-14 16:10 | RAD_ITS ---
INDICATION: RIGHT HIP EXAMINATION/TECHNIQUE: X-RAY - XR Hip Unilateral with Pelvis when performed; 2-3 Views COMPARISON: No relevant prior comparison study available FINDINGS: PELVIC BONES: No displaced fracture, destructive or sclerotic lesions. Note that overlapping bowel shadows may however obscure fine detail. Sacroiliac joints demonstrate mild degenerative arthrosis. No widening of the pubic symphysis. HIPS: The articular structures are unremarkable. No displaced fracture seen in this frontal view. SOFT TISSUES: No soft tissue swelling or gas. RAD/HIP, UNI W/ Pelvis 2-3 Views IMPRESSION: Mild degenerative arthrosis in the SI joints. Electronically Signed: Joi Jasmine MD at 8:09 EDT ,
== END | disposition home or self-care (01) ==
PROVIDERS: PCP Family Medicine; Referring Provider Anesthesiology Pain Medicine; Visit Provider Anesthesiology Pain Medicine
DX: M16.11 Unilateral primary osteoarthritis, right hip (principal)
CPT/HCPCS: 73502

== ENCOUNTER 2023-12-06 10:08 | Inpatient (IN) | payer MEDICARE, SELFPAY ==
[2023-12-06] VITALS (14 sets, daily range): BP systolic 107–138; BP diastolic 55–71; PULSE 74–101; RESP 14–22; TEMP 35.7–37.4; O2SAT 94–97; BMI 25.1
[2023-12-06 10:42] LABS: Absolute Lymphocyte Count 1.91 X10^3/uL (0.83-4.51); Absolute Neutrophil Count 19.2 X10^3/uL (2.0-7.7); Basophil# 0.04 X10^3/uL; Basophil% 0.2 % (0-1); Eosinophil# 0.02 X10^3/uL; Eosinophils% 0.1 % (0-5); Hematocrit 40.2 % (37-47); Hemoglobin 13.2 g/dL (12.0-15.0); Lymphocyte # 1.91 X10^3/ul (0.83-4.51); Lymphocyte % 8.4 % (19-41); Mean Corp Hgb Conc 32.8 g/dL (32-36); Mean Corpuscular Hgb 29.1 pg (27.0-32.0); Mean Corpuscular Volume 88.7 fL (81-99); Mean Platelet Vol. 9.5 fl (6.2-12.0); Monocyte# 1.28 X10^3/uL; Monocyte% 5.6 % (0-10); NRBC Flagged by Analyzer 0 % (0-5); Neutrophil # 19.18 X10^3/uL (2.7-7.7); Neutrophil % 84.5 % (47-70); Platelet Count 309 K/mm3 (150-450); RBC Distribution Width CV 12.4 % (11.6-14.6); RBC Distribution Width SD 40.1 fl (35.1-43.9); Red Blood Count 4.53 M/mm3 (4.2-5.4); White Blood Count 22.7 K/mm3 (4.4-11.0)
[2023-12-06 11:03] LABS: Anion Gap 6 (5-15); BUN 15 mg/dL (7-18); BUN/Creat Ratio 14.9 RATIO (10-20); Calcium,Total 9.3 mg/dL (8.5-10.1); Chloride 98 mmol/L (98-107); Creatinine, Serum 1.01 mg/dL (0.55-1.02); EST Glomerular Filtration Rate 57 mL/min (>60); Est Glom Filt Rate - Afr Amer 69 mL/min (>60); Estimated Creatinine Clearance 42.41 ml/min; Glucose 138 mg/dL (74-106); Potassium 4.2 mmol/L (3.5-5.1); Sodium Level 134 mmol/L (136-145)
[2023-12-06] MEDS: Ipratropium/Albuterol Sulfate 3 ML AMPUL.NEB INHALATION (11:07)
[2023-12-06] MEDS: Albuterol 2.5 MG/3 ML VIAL.NEB. INHALATION ×2 (11:07→19:11)
[2023-12-06 11:56] LABS: Red Blood Cells-Urine 0 SEEN /hpf (0-5); Squamous Epithelial Cells - UA 0 SEEN /hpf (5-10)
[2023-12-06 12:31] LABS: Color, Urine Yellow (Yellow); Glucose, Dipstick Normal (Normal); Ketone-Dipstick 50 mg/dl (Negative); Leukocyte Esterase-Dipstick 500 /ul (Negative); Nitrite-Dipstick Negative (Negative); Occult Blood-Urine 10 /ul (Negative); Protein-Dipstick 30 mg/dl (Negative); Specific Gravity, Urine 1.015 (1.002-1.030); Urine Bilirubin Dipstick Negative (Negative); Urine Clarity Sl. Cloudy (Clear); Urine Urobilinogen 1 mg/dl (Normal)
[2023-12-06 12:37] LABS: ALB/GLOB Ratio 0.7 RATIO (0.9-2.4); AST(SGOT) 21 U/L (15-37); Alanine Aminotransfer ALT/SGPT 12 U/L (13-56); Albumin, Serum 3.2 g/dL (3.2-5.0); Alkaline Phosphatase 75 U/L (45-117); Anion Gap 10 (5-15); BUN 16 mg/dL (7-18); BUN/Creat Ratio 15.2 RATIO (10-20); Calcium,Total 9.5 mg/dL (8.5-10.1); Chloride 98 mmol/L (98-107); Creatinine, Serum 1.05 mg/dL (0.55-1.02); EST Glomerular Filtration Rate 54 mL/min (>60); Est Glom Filt Rate - Afr Amer 66 mL/min (>60); Globulin 4.6 g/dL (2.2-4.2); Glucose 138 mg/dL (74-106); Potassium 4.3 mmol/L (3.5-5.1); Protein, Total 7.8 g/dL (6.4-8.2); Sodium Level 134 mmol/L (136-145)
[2023-12-06 13:03] LABS: Lactic Acid 2.2 mmol/L (0.4-1.9)
[2023-12-06 13:05] LABS: Bacteria 1+ /hpf (None Seen); Mucous, Urine 2+ /hpf (<or=2+)
[2023-12-06 13:06] LABS: White Blood Cells 0-5 SEEN /hpf (0-5)
[2023-12-06 13:22] LABS: International Normalized Ratio 1.1; Partial Thromboplast Time 25.7 Seconds (24.1-36.2); Prothrombin Time (Protime)PT. 14.5 SECONDS (11.7-14.9)
[2023-12-06] MEDS: Ceftriaxone 1 GM/50 ML BAG IV (15:45)
[2023-12-06 16:29] LABS: Reflex Lactate? Y
[2023-12-06] MEDS: Azithromycin 500 MG in Dextrose 5%-Water (250mL Bag) 250 ML 250 MG IV (16:50)
[2023-12-06 18:12] LABS: Lactic Acid 2.3 mmol/L (0.4-1.9)
[2023-12-06] MEDS: Budesonide Respules 0.5 MG/2 ML AMPUL.NEB. INHALATION (19:10)
[2023-12-06] MEDS: guaiFENesin 1,200 MG Tablet 1200 MG PO (19:58)
[2023-12-07] VITALS (7 sets, daily range): BP systolic 101–122; BP diastolic 61–68; PULSE 71–86; RESP 15–18; TEMP 36.5–37.1; O2SAT 94–98
[2023-12-07] MEDS: Levothyroxine 88 MCG Tablet PO (05:53)
[2023-12-07 07:11] LABS: Absolute Lymphocyte Count 1.54 X10^3/uL (0.83-4.51); Absolute Neutrophil Count 11.3 X10^3/uL (2.0-7.7); Basophil# 0.03 X10^3/uL; Basophil% 0.2 % (0-1); Eosinophil# 0.17 X10^3/uL; Eosinophils% 1.2 % (0-5); Hematocrit 35.7 % (37-47); Hemoglobin 11.5 g/dL (12.0-15.0); Lymphocyte # 1.54 X10^3/ul (0.83-4.51); Lymphocyte % 10.9 % (19-41); Mean Corp Hgb Conc 32.2 g/dL (32-36); Mean Corpuscular Hgb 28.9 pg (27.0-32.0); Mean Corpuscular Volume 89.7 fL (81-99); Mean Platelet Vol. 9.7 fl (6.2-12.0); Monocyte# 0.93 X10^3/uL; Monocyte% 6.6 % (0-10); NRBC Flagged by Analyzer 0 % (0-5); Neutrophil # 11.31 X10^3/uL (2.7-7.7); Neutrophil % 80.5 % (47-70); Platelet Count 282 K/mm3 (150-450); RBC Distribution Width CV 12.4 % (11.6-14.6); RBC Distribution Width SD 40.7 fl (35.1-43.9); Red Blood Count 3.98 M/mm3 (4.2-5.4); White Blood Count 14.1 K/mm3 (4.4-11.0)
[2023-12-07] MEDS: Albuterol 2.5 MG/3 ML VIAL.NEB. INHALATION ×2 (07:49→13:24)
[2023-12-07] MEDS: Budesonide Respules 0.5 MG/2 ML AMPUL.NEB. INHALATION (07:49)
[2023-12-07 07:52] LABS: Anion Gap 7 (5-15); BUN 11 mg/dL (7-18); BUN/Creat Ratio 15.4 RATIO (10-20); Calcium,Total 8.9 mg/dL (8.5-10.1); Chloride 102 mmol/L (98-107); Creatinine, Serum 0.71 mg/dL (0.55-1.02); EST Glomerular Filtration Rate 85 mL/min (>60); Est Glom Filt Rate - Afr Amer 103 mL/min (>60); Estimated Creatinine Clearance 53.55 ml/min; Glucose 109 mg/dL (74-106); Potassium 3.7 mmol/L (3.5-5.1); Sodium Level 135 mmol/L (136-145)
[2023-12-07] MEDS: guaiFENesin 1,200 MG Tablet 1200 MG PO ×2 (09:41→21:41)
[2023-12-07] MEDS: Enoxaparin 40 MG/0.4 ML Syringe SC (09:41)
[2023-12-07] MEDS: Pantoprazole Sodium 20 MG Tablet PO (09:41)
[2023-12-07] MEDS: Azithromycin 500 MG in Dextrose 5%-Water (250mL Bag) 250 ML 250 MG IV (09:46)
[2023-12-07] MEDS: Ceftriaxone 2 GM in 0.9% Normal Saline (50mL MB+) 50 ML IV (11:57)
[2023-12-08 04:00] VITALS: BP 117/64; PULSE 72; RESP 15; TEMP 36.8; O2SAT 94
[2023-12-08] MEDS: Levothyroxine 88 MCG Tablet PO (06:21)
[2023-12-08 06:55] VITALS: O2SAT 99
[2023-12-08 08:37] LABS: Absolute Lymphocyte Count 2.06 X10^3/uL (0.83-4.51); Absolute Neutrophil Count 6.8 X10^3/uL (2.0-7.7); Basophil# 0.05 X10^3/uL; Basophil% 0.5 % (0-1); Eosinophil# 0.36 X10^3/uL; Eosinophils% 3.6 % (0-5); Hemoglobin 12.5 g/dL (12.0-15.0); Lymphocyte # 2.06 X10^3/ul (0.83-4.51); Lymphocyte % 20.8 % (19-41); Mean Corp Hgb Conc 30.5 g/dL (32-36); Mean Corpuscular Hgb 28.1 pg (27.0-32.0); Mean Corpuscular Volume 92.1 fL (81-99); Mean Platelet Vol. 9.6 fl (6.2-12.0); Monocyte# 0.62 X10^3/uL; Monocyte% 6.3 % (0-10); NRBC Flagged by Analyzer 0 % (0-5); Neutrophil # 6.76 X10^3/uL (2.7-7.7); Neutrophil % 68.3 % (47-70); Platelet Count 318 K/mm3 (150-450); RBC Distribution Width CV 12.2 % (11.6-14.6); RBC Distribution Width SD 41.2 fl (35.1-43.9); Red Blood Count 4.45 M/mm3 (4.2-5.4); White Blood Count 9.9 K/mm3 (4.4-11.0)
[2023-12-08 09:18] VITALS: BP 114/63; PULSE 74; RESP 18; TEMP 36.4; O2SAT 96
[2023-12-08] MEDS: 0.9% Saline Lock 10 ML Syringe IV (09:20)
[2023-12-08] MEDS: Ceftriaxone 2 GM in 0.9% Normal Saline (50mL MB+) 50 ML IV (09:21)
[2023-12-08] MEDS: guaiFENesin 1,200 MG Tablet 1200 MG PO (09:26)
[2023-12-08] MEDS: Pantoprazole Sodium 20 MG Tablet PO (09:28)
[2023-12-08] MEDS: Azithromycin 500 MG in Dextrose 5%-Water (250mL Bag) 250 ML 250 MG IV (10:02)
[2023-12-08 11:22] VITALS: BP 123/62; PULSE 78; RESP 18; TEMP 36.6; O2SAT 97
== END 2023-12-08 11:32 | disposition home or self-care (01) | DRG 194 ==
LOC: ED 16:19 → MS3 16:34
PROVIDERS: Emergency Provider Emergency Medicine; PCP Family Medicine; Visit Provider Internal Medicine
DX: J13 Pneumonia due to Streptococcus pneumoniae (principal); J47.0 Bronchiectasis with acute lower respiratory infection; N30.00 Acute cystitis without hematuria; E03.9 Hypothyroidism, unspecified; B95.3 Streptococcus pneumoniae as the cause of diseases classified elsewhere; Z87.891 Personal history of nicotine dependence; Z79.51 Long term (current) use of inhaled steroids; B96.4 Proteus (mirabilis) (morganii) as the cause of diseases classified elsewhere
CPT/HCPCS: 36415; 71045; 71275; 80048; 80053; 81001; 83605; 85025; 85610; 85730; 87040; 87070; 87077; 87086; 87088; 87186; 87205; 87449; 87631; 93005; 94640; 94667; 94668; 97802; 99252; 99285; J7040; Q9967; A4216; G0463; J0696

== ENCOUNTER → 2024-07-04 | Outpatient (CLI) | payer MEDICARE, SELFPAY ==
--- NOTE | 2024-07-04 15:56 | RAD_ITS ---
PROCEDURE: L/S SPINE W BEND MIN 6 VW 07/04/2024 REASON FOR EXAM: LUMBAR SPINE DISC DEGENERATION TECHNIQUE: Five views; AP, bilateral oblique, lateral and coned-down L5-S1 view with 3 obliques and 3 laterals, 8 total images COMPARISON: None available FINDINGS: The study is extremely difficult to interpret/evaluate due to the severe scoliosis and deformity and osteopenia. Multilevel thoracolumbar spondylosis and discogenic change. It is difficult to distinguish T12, L1 and L2 with appearance of possible anterior wedging deformity of L1 and L2. There is severe appearing disc space narrowing and degenerative endplate changes. L3, L4 and L5 vertebral body height appear within limits. Pbijeeap-hb-wjjdyh disc space narrowing suggested L2-3. Mild appearing disc space narrowing L3-4. Disc spaces L4-5 and L5-S1 appear within limits. Bilateral multilevel facet degenerative changes noted. RAD/L/S Spine w Bend Min 6 Vw IMPRESSION: The study is extremely difficult to interpret/evaluate due to the severe scolio sis and deformity and osteopenia. Multilevel thoracolumbar spondylosis and discogenic change as above. It is difficult to distinguish T12, L1 and L2 with appearance of possible anter ior wedging deformity of L1 and L2. Reading Location: [id number]
== END | disposition home or self-care (01) ==
LOC: RAD 15:54
PROVIDERS: PCP Family Medicine; Referring Provider Anesthesiology Pain Medicine; Visit Provider Anesthesiology Pain Medicine
DX: M51.369 Other intervertebral disc degeneration, lumbar region without mention of lumbar back pain or lower extremity pain (principal)
CPT/HCPCS: 72114

== ENCOUNTER → 2024-09-16 | Outpatient (CLI) | payer MEDICARE, SELFPAY ==
[2024-09-16 15:57] LABS: PTHIN 29 pg/mL (11-61)
[2024-09-16 16:12] LABS: Anion Gap 12 (5-15); BUN 23 mg/dL (4-19); BUN/Creat Ratio 28.1 RATIO (10-20); Calcium 9.8 mg/dL (7.6-11.0); Calcium,Total 9.8 mg/dL (7.6-11.0); Carbon Dioxide 26.6 mmol/L (21.0-32.0); Chloride 102 mmol/L (98-108); Glucose 81 mg/dL (70-99); Magnesium 2.1 mg/dL (1.5-2.2); Potassium 4.2 mmol/L (3.3-5.1); Vitamin D,25 Hydroxy 41.8 ng/mL (30-100)
== END | disposition home or self-care (01) ==
LOC: MFPLAB 10:40
PROVIDERS: PCP Family Medicine; Visit Provider Family Medicine
DX: M81.0 Age-related osteoporosis without current pathological fracture (principal); E03.9 Hypothyroidism, unspecified
CPT/HCPCS: 36415; 80048; 82306; 82310; 83735; 83970; 84439; 84443

== ENCOUNTER → 2024-10-01 | Outpatient (CLI) | payer MEDICARE, SELFPAY | END | disposition home or self-care (01) | PROVIDERS: PCP Family Medicine; Referring Provider Nurse Practitioner Acute Care; Visit Provider Nurse Practitioner Acute Care | DX: J47.9 Bronchiectasis, uncomplicated (principal) | CPT/HCPCS: 87070; 87077; 87186; 87205 ==

== ENCOUNTER → 2024-10-08 | Outpatient (CLI) | payer MEDICARE, SELFPAY ==
--- NOTE | 2024-10-08 07:22 | BI_ITS ---
EXAM: SCRN MAMM (CAD)W/JANETH BILAT DATE: 10/08/2024 CLINICAL HISTORY: F, Age 74 y/o , SCREENING Grandmother with breast cancer. Aunt with breast cancer. TECHNIQUE: Procedure Code: [id number] Modality: MG Procedure: SCRN MAMM (CAD)W/JANETH BILAT COMPARISON: Prior exam(s) dated October 03, 2023.. FINDINGS: TISSUE DENSITY: The breasts are almost entirely fatty. Bilateral Breast Mammographic Findings: No significant masses, calcifications or other abnormalities are identified. Stable small benign-appearing bilateral axillary lymph nodes. No suspicious masses, areas of developing architectural distortion, or suspicious calcifications. There has been no significant interval change. BI/SCRN MAMM (CAD)W/JANETH BILAT IMPRESSION: Stable screening bilateral mammogram. OVERALL FINAL ASSESSMENT BI-RADS 2: BENIGN RECOMMENDATION: Routine annual follow-up in 1 Year A letter with findings and recommendations will be mailed to the patient. Reading Location: [place] [id number]
--- OUTSIDE RECORDS SUMMARY | 2024-10-08 07:42 | XMS RPT_ITS | CCD ---
Author Organization [facility] CliniSyal Care Team Providers Care Retail Store Associate Name Role Phone Durand ASSISTANT PROFESSOR OF PHILOSOPHY, Beryl Rama Unavailable Unavaila ble Durand ASSISTANT PROFESSOR OF PHILOSOPHY, Beryl Rama Unavailable Unavaila ble Anderson LYNDON, Tawanna S Unavailable Yensho ASSISTANT PROFESSOR OF PHILOSOPHY, Elizabeth A Unavailable Unavailab le York, Beryl L Unavailable Unavailable York, Beryl L Unavailable Unavailable York, Beryl L Unavailable Unavailable Yensho ASSISTANT PROFESSOR OF PHILOSOPHY, Elizabeth A Unavailable Unavailab le Jozef, Paola M Unavailable Unavailable Durand ASSISTANT PROFESSOR OF PHILOSOPHY, Beryl Rama Unavailable Unavaila Dr. Jennifer Terry Primary Care Provider [phone] Jennifer Hood Referring Provider Justin VIOLIN MAKER HAND, VIOLIN MAKER HAND-C Tawanna Attending Provider Dr. Jennifer Hood Primary Care Provider Dr. Jennifer Hood Referring Provider [phone] Catarino Elder Attending Provider Dr. Jennifer Hood MD Primary Care Provider Dr. Ulises Srivastava MD Attending Provider Dr. Ulises Srivastava MD Referring Provider Dr. Jag Buck MD Attending Provider [phone] Dr. Jennifer Hood MD Referring Provider Justin VIOLIN MAKER HAND-C, Tawanna Attending Provider Dr. Jag Buck MD Primary Care Provider Justin VIOLIN MAKER HAND-C, Tawanna Referring Provider Jacquelyn Gtz Referring Unavailable Jolliff, Jennifer S Primary Care Unavailable Jacquelyn Gtz Attending Unavailable Ulises Srivastava Attending Unavailable Ulises Srivastava Referring Unavailable Jolliff, Jennifer S Primary Care Unavailable Jolliff, Jennifer S Primary Care Unavailable ReginaldneyJag Attending Unavailable Orlando Guevara Attending Unavailable Jolliff, Jennifer S Primary Care Unavailable Jopperi, Damien Admitting Unavailable Jopperi, Damien Consulting Unavailable Justin VIOLIN MAKER HAND, Tawanna Attending Unavailable Justin VIOLIN MAKER HAND, Tawanna Referring Unavailable [facility]available Cielo, Jag Attending Unavailable Cielo, Jag Referring Unavailable Anderson VIOLIN MAKER HAND, Tawanna Attending Unavailable Ranney, [facility] Unavailable Jolliff, Jennifer S Primary Care Unavailable Jopperi, Damien Admitting Unavailable Jopperi, Damien Consulting Unavailable Jopperi, Damien Attending Unavailable Paola, Orlando Attending Unavailable Paola, Orlando Consulting Unavailable Justin VIOLIN MAKER HAND, Tawanna Attending Unavailable Jolliff, Jennifer S Referring Unavailable Reginaldney, Jag Primary Care Unavailable Jolliff, Jennifer S Primary Care Unavailable Jolliff, Jennifer S Attending Unavailable Jolliff, Jennifer S Referring Unavailable Medications Current Medications Medication Drug Class(es) Dates Sig (Normalized) Sig (Original) amoxicillin 875 mg / clavulanate 125 mg oral tablet (20 sources) Penicillin-class Antibacterial Start: 10-03-2024 Amoxicillin-Pot Clavulanate 875-125 mg tablet Active 1 {tbl} PO TWICE A DAY 20 10 October 03, 2024 12:00am October 12, 2024 12:00am 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 Start: 12-08-2023 End: 09-30-2024 take 1 tablet by mouth three times daily at mealtime Amoxicillin-Pot Clavulanate (Augmentin) 500-125 mg tablet Discontinued 1 {tbl} PO THREE TIMES A DAY December 08, 2023 12:00am September 30, 2024 9:13am 1 3 times a day with food Start: 11-18-2022 End: 03-09-2023 Amoxicillin-Pot Clavulanate 875-125 mg tablet Discontinued 1 {tbl} PO TWICE A DAY 10 December 14, 2022 1:00am March 09, 2023 8:59am Start: 07-23-2021 End: 07-28-2021 Amoxicillin-Pot Clavulanate 875-125 mg tablet Discontinued 1 {tbl} PO TWICE A DAY July 23, 2021 12:00am July 28, 2021 10:51am Start: 07-23-2021 End: 07-28-2021 take 1 tablet by mouth twice daily Amoxicillin-Pot Clavulanate Discontinued 1 TABLET PO TWICE A DAY July 23, 2021 12:00am July 28, 2021 10:51am Start: 10-11-2016 End: 10-21-2016 AUGMENTIN 875-125 MG TABS 1 tab twice daily AMOXICILLIN-POT CLAVULANATE [id number] Tawanna Anderson CNP Start: 08-17-2016 End: 09-08-2016 AUGMENTIN 875-125 MG TABS 1 tab twice daily AMOXICILLIN-POT CLAVULANATE [id number] Paola Haskins Start: 08-17-2016 End: 09-08-2016 AUGMENTIN 875-125 MG TABS 1 tab twice daily AMOXICILLIN-POT CLAVULANATE [id number] Paola Haskins Start: 08-17-2016 AUGMENTIN 875- 125 MG TABS 1 tab twice daily AMOXICILLIN-POT CLAVULANATE [id number] Tawanna Anderson SPONGE DIVER Start: 08-03-2016 End: 08-13-2016 AUGMENTIN 875-125 MG TABS 1 tab twice daily AMOXICILLIN-POT CLAVULANATE [id number] Tawanna Anderson SPONGE DIVER Start: 05-06-2016 End: 08-13-2016 AUGMENTIN 875-125 MG TABS 1 tab twice daily AMOXICILLIN-POT CLAVULANATE [id number] Tawanna Anderson SPONGE DIVER Start: 05-06-2016 End: 08-03-2016 AUGMENTIN 875-125 MG TABS 1 tab twice daily AMOXICILLIN-POT CLAVULANATE [id number] Paola Haskins Start: 05-06-2016 AUGMENTIN 875- 125 MG TABS 1 tab twice daily AMOXICILLIN-POT CLAVULANATE [id number] Tawanna Anderson CNP Fluticasone Propion-Salmeterol (20 sources) Corticosteroid, beta2-Adrenergic Agonist Start: 10-11-2023 Fluticasone Propion-Salmeterol (Advair Diskus) 250-50 mcg/dose blister with device Active 1 NMA INHALATION TWICE A DAY 3 October 11, 2023 12:24pm Bronchiectasis, uncomplicated Start: 10-11-2023 Fluticasone Pr opion-Salmeterol (Advair Diskus) 250-50 mcg/dose blister with device Active 1 NMA INHALATION TWICE A DAY October 11, 2023 12:24pm Start: 09-29-2023 End: 10-11-2023 Fluticasone Propion-Salmeter ol (Advair Diskus) 250-50 mcg/dose blister with device Discontinued 1 NMA INHALATION TWICE A DAY 3 3 September 29, 2023 9:34am October 11, 2023 12:24pm Bronchiectasis, uncomplicated Start: 09-29-2023 End: 10-11-2023 Fluticasone Propion-Salmeter ol (Advair Diskus) 250-50 mcg/dose blister with device Discontinued 1 NMA INHALATION TWICE A DAY 3 September 29, 2023 9:34am October 11, 2023 12:24pm Start: 09-15-2022 End: 09-29-2023 Fluticasone Propion-Salmeter ol (Advair Diskus) 250-50 mcg/dose blister with device Discontinued 1 NMA INHALATION TWICE A DAY 3 3 September 15, 2022 8:43am September 29, 2023 9:35am Bronchiectasis, uncomplicated Start: 09-15-2022 End: 09-29-2023 Fluticasone Propion-Salmeter ol (Advair Diskus) 250-50 mcg/dose blister with device Discontinued 1 NMA INHALATION TWICE A DAY 3 September 15, 2022 8:43am September 29, 2023 9:35am Start: 09-14-2021 End: 09-15-2022 Fluticasone Propion-Salmeter ol (Advair Diskus) 250-50 mcg/dose blister with device Discontinued 1 NMA INHALATION TWICE A DAY 3 0 September 14, 2021 11:16am September 15, 2022 8:43am Bronchiectasis, uncomplicated Start: 09-14-2021 End: 09-15-2022 Fluticasone Propion-Salmeter ol (Advair Diskus) 250-50 mcg/dose blister with device Discontinued 1 NMA INHALATION TWICE A DAY 3 September 14, 2021 11:16am September 15, 2022 8:43am Start: 09-14-2021 Fluticasone Pr opion-Salmeterol (Advair Diskus) 250-50 mcg/dose blister with device Active 1 INH INHALATION TWICE A DAY 3 September 14, 2021 11:16am Start: 09-14-2021 Fluticasone Pr opion-Salmeterol (Advair Diskus) 250-50 mcg/dose blister with device Active 1 INH INHALATION TWICE A DAY 3 September 14, 2021 10:16am Start: 09-14-2021 End: 09-14-2021 Fluticasone Propion-Salmeter ol (Advair Diskus) 250-50 mcg/dose blister with device Discontinued 1 NMA INHALATION DAILY September 14, 2021 10:42am September 14, 2021 11:16am Bronchiectasis, uncomplicated Start: 09-14-2021 End: 09-14-2021 Fluticasone Propion-Salmeter ol (Advair Diskus) 250-50 mcg/dose blister with device Discontinued 1 NMA INHALATION DAILY September 14, 2021 10:42am September 14, 2021 11:16am Start: 09-14-2021 End: 09-14-2021 Fluticasone Propion-Salmeter ol (Advair Diskus) 250-50 mcg/dose blister with device Discontinued 1 INH INHALATION DAILY September 14, 2021 10:42am September 14, 2021 11:16am Start: 09-14-2021 End: 09-14-2021 Fluticasone Propion-Salmeter ol (Advair Diskus) 250-50 mcg/dose blister with device Discontinued 1 INH INHALATION DAILY September 14, 2021 9:42am September 14, 2021 10:16am Start: 12-09-2019 End: 09-29-2020 Fluticasone Propion-Salmeter ol (Wixela Inhub) 500-50 mcg/dose blister with device Discontinued 1 NMA INHALATION TWICE A DAY 60 3 December 09, 2019 1:00am September 29, 2020 7:34am Start: 12-09-2019 End: 09-29-2020 Fluticasone Propion-Salmeter ol (Wixela Inhub) 500-50 mcg/dose blister with device Discontinued 1 NMA INHALATION TWICE A DAY 60 December 09, 2019 1:00am September 29, 2020 7:34am Start: 12-09-2019 End: 09-29-2020 Fluticasone Propion-Salmeter ol (Wixela Inhub) 500-50 mcg/dose blister with device Discontinued 1 INH INHALATION TWICE A DAY 60 December 09, 2019 12:00am September 29, 2020 6:34am Start: 12-09-2019 End: 09-29-2020 Fluticasone Propion-Salmeter ol (Wixela Inhub) 500-50 mcg/dose blister with device Discontinued 1 INH INHALATION TWICE A DAY 60 December 09, 2019 1:00am September 29, 2020 7:34am Start: 06-27-2019 End: 09-14-2021 Fluticasone Propion-Salmeter ol (Advair Diskus) 250-50 mcg/dose blister with device Discontinued 1 NMA INHALATION TWICE A DAY 3 3 June 27, 2019 10:52am September 14, 2021 10:44am Bronchiectasis, uncomplicated Start: 06-27-2019 End: 09-14-2021 Fluticasone Propion-Salmeter ol (Advair Diskus) 250-50 mcg/dose blister with device Discontinued 1 NMA INHALATION TWICE A DAY 3 June 27, 2019 10:52am September 14, 2021 10:44am Start: 06-27-2019 End: 09-14-2021 Fluticasone Propion-Salmeter ol (Advair Diskus) 250-50 mcg/dose blister with device Discontinued 1 INH INHALATION TWICE A DAY 3 June 27, 2019 10:52am September 14, 2021 10:44am Start: 06-27-2019 End: 09-14-2021 Fluticasone Propion-Salmeter ol (Advair Diskus) 250-50 mcg/dose blister with device Discontinued 1 INH INHALATION TWICE A DAY 3 June 27, 2019 9:52am September 14, 2021 9:44am Start: 06-27-2019 Fluticasone Pr opion-Salmeterol (Advair Diskus) 250-50 mcg/dose blister with device Active 1 INH INHALATION TWICE A DAY 3 June 27, 2019 10:52am Start: 06-27-2019 End: 10-02-2019 Fluticasone Propion-Salmeter ol (Wixela Inhub) 500-50 mcg/dose blister with device Discontinued 1 NMA INHALATION TWICE A DAY 60 3 June 27, 2019 12:00am October 02, 2019 8:09am Start: 06-27-2019 End: 10-02-2019 Fluticasone Propion-Salmeter ol (Wixela Inhub) 500-50 mcg/dose blister with device Discontinued 1 NMA INHALATION TWICE A DAY 60 June 27, 2019 12:00am October 02, 2019 8:09am Start: 06-27-2019 End: 10-02-2019 Fluticasone Propion-Salmeter ol (Wixela Inhub) 500-50 mcg/dose blister with device Discontinued 1 INH INHALATION TWICE A DAY 60 June 26, 2019 11:00pm October 02, 2019 7:09am Start: 06-27-2019 End: 10-02-2019 Fluticasone Propion-Salmeter ol (Wixela Inhub) 500-50 mcg/dose blister with device Discontinued 1 INH INHALATION TWICE A DAY 60 June 27, 2019 12:00am October 02, 2019 8:09am Start: 02-07-2018 End: 06-27-2019 Fluticasone Propion-Salmeter ol (Advair Diskus) 250-50 mcg/dose blister with device Discontinued 1 NMA INHALATION TWICE A DAY 3 3 February 07, 2018 9:02am June 27, 2019 10:52am Bronchiectasis, uncomplicated Start: 02-07-2018 End: 06-27-2019 Fluticasone Propion-Salmeter ol (Advair Diskus) 250-50 mcg/dose blister with device Discontinued 1 NMA INHALATION TWICE A DAY 3 February 07, 2018 9:02am June 27, 2019 10:52am Start: 02-07-2018 End: 06-27-2019 Fluticasone Propion-Salmeter ol (Advair Diskus) 250-50 mcg/dose blister with device Discontinued 1 INH INHALATION TWICE A DAY 3 February 07, 2018 8:02am June 27, 2019 9:52am Start: 02-07-2018 End: 06-27-2019 Fluticasone Propion-Salmeter ol (Advair Diskus) 250-50 mcg/dose blister with device Discontinued 1 INH INHALATION TWICE A DAY 3 February 07, 2018 9:02am June 27, 2019 10:52am Start: 07-05-2017 End: 02-07-2018 Fluticasone Propion-Salmeter ol (Advair Diskus) 250-50 mcg/dose blister with device Discontinued 1 NMA INHALATION TWICE A DAY July 05, 2017 12:00am February 07, 2018 9:05am Start: 07-05-2017 End: 02-07-2018 Fluticasone Propion-Salmeter ol (Advair Diskus) 250-50 mcg/dose blister with device Discontinued 1 INH INHALATION TWICE A DAY July 04, 2017 11:00pm February 07, 2018 8:05am Start: 07-05-2017 End: 02-07-2018 Fluticasone Propion-Salmeter ol (Advair Diskus) 250-50 mcg/dose blister with device Discontinued 1 INH INHALATION TWICE A DAY July 05, 2017 12:00am February 07, 2018 9:05am Start: 06-06-2017 End: 07-05-2017 Fluticasone Propion-Salmeter ol (Advair Diskus) 500-50 mcg/dose blister with device Discontinued 1 NMA INHALATION TWICE A DAY 60 June 06, 2017 12:00am July 05, 2017 6:49am Start: 06-06-2017 End: 07-05-2017 Fluticasone Propion-Salmeter ol (Advair Diskus) 500-50 mcg/dose blister with device Discontinued 1 NMA INHALATION TWICE A DAY 60 June 06, 2017 12:00am July 05, 2017 6:49am Start: 06-06-2017 End: 07-05-2017 Fluticasone Propion-Salmeter ol (Advair Diskus) 500-50 mcg/dose blister with device Discontinued 1 INH INHALATION TWICE A DAY 60 June 05, 2017 11:00pm July 05, 2017 5:49am Start: 06-06-2017 End: 07-05-2017 Fluticasone Propion-Salmeter ol (Advair Diskus) 500-50 mcg/dose blister with device Discontinued 1 INH INHALATION TWICE A DAY 60 June 06, 2017 12:00am July 05, 2017 6:49am Start: 06-01-2017 End: 07-04-2017 Fluticasone Propion-Salmeter ol (Airduo Respiclick) 232-14 mcg/actuation aerosol powdr breath activated Discontinued 1 NMA INHALATION Q12H 1 June 01, 2017 12:00am July 04, 2017 12:56pm Bronchiectasis, uncomplicated Start: 06-01-2017 End: 07-04-2017 take 1 puff(s) by inhalation every twelve hours Fluticasone Propion-Salmeterol (Airduo Respiclick) 232-14 mcg/actuation aerosol powdr breath activated Discontinued 1 PUFF INHALATION Q12H 1 June 01, 2017 12:00am July 04, 2017 12:56pm Start: 03-31-2017 End: 07-04-2017 Fluticasone Propion-Salmeter ol (Airduo Respiclick) 113-14 mcg/actuation aerosol powdr breath activated Discontinued 1 NMA INHALATION TWICE A DAY 1 3 March 31, 2017 1:00am July 04, 2017 12:56pm Start: 03-31-2017 End: 07-05-2017 Fluticasone Propion-Salmeter ol (Advair Diskus) 250-50 mcg/dose blister with device Discontinued 1 NMA INHALATION ONCE 60 3 March 31, 2017 1:00am July 05, 2017 6:49am Start: 03-31-2017 End: 07-05-2017 Fluticasone Propion-Salmeter ol (Advair Diskus) 250-50 mcg/dose blister with device Discontinued 1 NMA INHALATION ONCE 60 March 31, 2017 1:00am July 05, 2017 6:49am Start: 03-31-2017 End: 07-04-2017 take 1 puff(s) by inhalation twice daily Fluticasone Propion-Salmeterol (Airduo Respiclick) 113-14 mcg/actuation aerosol powdr breath activated Discontinued 1 PUFF INHALATION TWICE A DAY 1 March 31, 2017 1:00am July 04, 2017 12:56pm Start: 03-31-2017 End: 07-05-2017 Fluticasone Propion-Salmeter ol (Advair Diskus) 250-50 mcg/dose blister with device Discontinued 1 INH INHALATION ONCE 60 March 31, 2017 12:00am July 05, 2017 5:49am Start: 03-31-2017 End: 07-05-2017 Fluticasone Propion-Salmeter ol (Advair Diskus) 250-50 mcg/dose blister with device Discontinued 1 INH INHALATION ONCE 60 March 31, 2017 1:00am July 05, 2017 6:49am levothyroxine sodium 0.15 mg oral tablet (20 sources) l-Thyroxine Start: 03-01-2017 Levothyroxine 150 MCG tablet Active 88 ug PO DAILY March 01, 2017 12:04pm Start: 03-01-2017 take 88 ug by mouth once daily Levothyroxine Active 88 MCG PO DAILY March 01, 2017 12:04pm Start: 04-01-2016 End: 03-01-2017 take 1 tablet by mouth once daily Levothyroxine 150 MCG tablet Discontinued 150 ug PO DAILY April 01, 2016 1:00am March 01, 2017 12:05pm Start: 02-20-2012 take 1 tablet by taylor th once daily SYNTHROID 88 MCG TABS One tablet by mouth daily LEVOTHYROXINE SODIUM [id number] Catarino Elder Start: 02-20-2012 take 1 tablet by taylor th once daily SYNTHROID 88 MCG TABS One tablet by mouth daily LEVOTHYROXINE SODIUM [id number] Catarino Elder Start: 02-20-2012 take 1 tablet by taylor th once daily SYNTHROID 88 MCG TABS One tablet by mouth daily LEVOTHYROXINE SODIUM [id number] Mary Lou Brice meloxicam 7.5 mg oral tablet (20 sources) Nonsteroidal Anti-inflammatory Drug Start: 12-06-2023 take 1 tablet by mouth once daily Meloxicam 7.5 mg tablet Active 7.5 mg PO DAILY December 06, 2023 12:00am Start: 11-03-2015 End: 09-14-2021 take 1 tablet by mouth once daily Meloxicam 7.5 MG tablet Discontinued 7.5 mg PO DAILY April 01, 2016 1:00am September 14, 2021 10:43am Multivitamin preparation (4 sources) Start: 04-01-2016 Multivitamin A ctive 1 EACH PO DAILY April 01, 2016 12:00am Start: 04-01-2016 Multivitamin A ctive 1 EACH PO DAILY April 01, 2016 1:00am omeprazole 20 mg delayed release oral capsule (20 sources) Proton Pump Inhibitor Start: 12-06-2023 take 1 capsule by mouth once daily Omeprazole 20 mg capsule,delayed release(DR/EC) Active 20 mg PO DAILY December 06, 2023 12:00am Start: 02-20-2012 End: 11-03-2015 take 1 tablet by mouth twice daily OMEPRAZOLE 40 MG CPDR One tablet by mouth twice daily OMEPRAZOLE [id number] Mary Lou Brice Vitamin D3 (4 sources) Start: 12-06-2023 take 25 ug by mouth once daily Vitamin D3 Active 25 ug PO DAILY December 06, 2023 12:00am Completed/Discontinued Medications Medication Drug Class(es) Dates Sig (Normalized) Sig (Original) ACAPELLA (18 sources) Start: 11-03-2015 ACAPELLA Use Twice daily Dx: Bronchiectesis ACAPELLA Catarino Elder Start: 11-03-2015 End: 08-17-2016 ACAPELLA Use Twice daily Dx: Bronchiectesis ACAPELLA Tawanna Anderson SPONGE DIVER Start: 11-03-2015 End: 08-17-2016 ACAPELLA Use Twice daily Dx: Bronchiectesis TIFFANIE Anderson SPONGE DIVER Start: 11-03-2015 ACAPELLA Use T wice daily Dx: Bronchiectesis ACAPELLA Catarino Elder acetaminophen 300 mg / HYDROcodone bitartrate 5 mg oral tablet (8 sources) Opioid Agonist Start: 04-01-2016 End: 03-01-2017 Hydrocodone-Acetaminophen 1 EACH tablet Discontinued 1 {tbl} PO EVERY 6 HOURS NEEDED as needed for Pain April 01, 2016 1:00am March 01, 2017 12:05pm Start: 04-01-2016 End: 03-01-2017 take 1 tablet by mouth every six hours as needed Hydrocodone-Acetaminophen Discontinued 1 TABLET PO EVERY 6 HOURS NEEDED April 01, 2016 1:00am March 01, 2017 12:05pm albuterol 0.83 mg/ml inhalation solution (20 sources) beta2-Adrenergic Agonist Start: 06-27-2019 End: 03-16-2023 Albuterol Sulfate (Ventolin Hfa) 90 mcg/actuation HFA aerosol inhaler Active 2 NMA INHALATION EVERY 6 HOURS as needed for shortness of breath or wheezing 1 March 16, 2023 9:08am Start: 06-27-2019 take 1 puff(s) by in halation every six hours Albuterol Sulfate (Ventolin Hfa) 90 mcg/actuation HFA aerosol inhaler Active 2 PUFF INHALATION EVERY 6 HOURS June 27, 2019 10:56am Start: 02-07-2018 End: 06-27-2019 Albuterol Sulfate (Ventolin Hfa) 90 mcg/actuation HFA aerosol inhaler Discontinued 2 NMA INHALATION EVERY 6 HOURS as needed for shortness of breath or wheezing 2 February 07, 2018 9:02am June 27, 2019 10:57am Start: 02-07-2018 End: 06-27-2019 take 1 puff(s) by inhalation every six hours Albuterol Sulfate (Ventolin Hfa) 90 mcg/actuation HFA aerosol inhaler Discontinued 2 PUFF INHALATION EVERY 6 HOURS 2 February 07, 2018 9:02am June 27, 2019 10:57am Start: 03-01-2017 End: 02-07-2018 take 90 ug by inhalation every four hours as needed Albuterol Sulfate (Proair Respiclick) 90 mcg/actuation aerosol powdr breath activated Discontinued 2 NMA INHALATION Q4H as needed March 01, 2017 1:00am February 07, 2018 8:51am Start: 04-01-2016 End: 03-01-2017 Albuterol Sulfate 1 PUFF inh aler Discontinued 1 - 2 NMA INHALATION EVERY 4 HOURS NEEDED as needed for Wheezing April 01, 2016 1:00am March 01, 2017 12:05pm Start: 04-01-2016 End: 03-01-2017 take 1 puff(s) by inhalation every four hours as needed Albuterol Sulfate Discontinued 1 - 2 PUFF INHALATION EVERY 4 HOURS NEEDED April 01, 2016 1:00am March 01, 2017 12:05pm Start: 02-04-2016 PROAIR RESPICL ICK 108 (90 Base) MCG/ACT AEPB 2 puffs every 4 hours as needed ALBUTEROL SULFATE [id number] Tawanna Anderson SPONGE DIVER Start: 02-04-2016 PROAIR RESPICL ICK 108 (90 Base) MCG/ACT AEPB 2 puffs every 4 hours as needed ALBUTEROL SULFATE [id number] Tawanna Anderson SPONGE DIVER Start: 02-20-2012 End: 2023 take 2.5 mg by inhalation every six hours as needed Albuterol Sulfate 2.5 mg /3 mL (0.083 %) solution for nebulization Discontinued 2.5 mg INHALATION EVERY 6 HOURS NEEDED as needed for J45.40, asthma 120 3 February 07, 2023 11:47am 2023 11:18am Start: 02-20-2012 End: 08-17-2016 ALBUTEROL SULFATE (2.5 MG/3M L) 0.083% NEBU 1 ampule inhaled every 4 hours PRN shortness of breath ALBUTEROL SULFATE [id number] Tawanna Anderson SPONGE DIVER Start: 02-20-2012 ALBUTEROL SULF ATE (2.5 MG/3ML) 0.083% NEBU 2 puffs as needed ALBUTEROL SULFATE [id number] Mary Lou Brice Start: 02-20-2012 End: 08-17-2016 take 2 puff(s) by inhalation every four hours as needed PROAIR HFA 108 (90 Base) MCG/ACT AERS INH 2 puffs q4h as needed ALBUTEROL SULFATE [id number] Beryl Durand LPN Start: 02-20-2012 End: 08-17-2016 take 2 puff(s) by inhalation every four hours as needed PROAIR HFA 108 (90 Base) MCG/ACT AERS INH 2 puffs q4h as needed ALBUTEROL SULFATE [id number] Beryl Rama Durand ASSISTANT PROFESSOR OF PHILOSOPHY Start: 02-20-2012 take 2 puff(s) by in halation every four hours as needed PROAIR HFA 108 (90 Base) MCG/ACT AERS INH 2 puffs q4h as needed ALBUTEROL SULFATE [id number] Beryl Rama Durand ASSISTANT PROFESSOR OF PHILOSOPHY alendronic acid 70 mg oral tablet (8 sources) Bisphosphonate Start: 06-27-2019 End: 09-30-2024 take 1 tablet by mouth every week Alendronate (Fosamax) 70 mg tablet Discontinued 70 mg PO EVERY WEEK June 27, 2019 12:00am September 30, 2024 9:13am ascorbic acid 500 mg oral tablet (4 sources) Vitamin C Start: 12-06-2023 End: 09-30-2024 take 1 tablet by mouth once daily Ascorbic Acid (Vitamin C) (C-500) 500 mg tablet Discontinued 500 mg PO DAILY December 06, 2023 12:00am September 30, 2024 9:13am aspirin 81 mg delayed release oral tablet (18 sources) Platelet Aggregation Inhibitor, Nonsteroidal Anti-inflammatory Drug Start: 11-03-2015 take 1 tablet by mouth once daily ASPIR-81 81 MG TBEC One tablet by mouth daily ASPIRIN [id number] Beryl Rama Durand ASSISTANT PROFESSOR OF PHILOSOPHY Start: 11-03-2015 End: 09-14-2021 take 1 tablet by mouth once daily Aspirin 81 MG tablet,delayed release (DR/EC) Discontinued 81 mg PO DAILY April 01, 2016 1:00am September 14, 2021 10:42am Start: 11-03-2015 take 1 tablet by taylor once daily ASPIR-81 81 MG TBEC One tablet by mouth daily ASPIRIN [id number] Beryl Rama Durand ASSISTANT PROFESSOR OF PHILOSOPHY biotin 10 mg oral capsule (8 sources) Start: 04-01-2016 End: 03-01-2017 take 1 capsule by mouth once daily Biotin 10,000 MCG capsule Discontinued 47597 ug PO DAILY April 01, 2016 1:00am March 01, 2017 12:05pm 120 actuat budesonide 0.18 mg/actuat dry powder inhaler (20 sources) Corticosteroid Start: 02-20-2012 End: 08-07-2014 PULMICORT FLEXHALER 180 MCG/ACT AEPB 2 puffs as needed BUDESONIDE [id number] Lesley Beasley LPN Start: 02-20-2012 PULMICORT FLEX HALER 180 MCG/ACT AEPB 2 puffs as needed BUDESONIDE [id number] Mary Lou Brice Start: 02-20-2012 End: 08-07-2014 PULMICORT FLEXHALER 180 MCG/ ACT AEPB 2 puffs as needed BUDESONIDE [id number] Lesley Beasley LPN Calcium (15 sources) Phosphate Binder, Calcium Start: 02-20-2012 take 1 tablet by mouth once daily CALCIUM + D3 600-200 MG-UNIT TABS One tablet by mouth daily CALCIUM CARB-CHOLECALCIFEROL [id number] Beryl Rama Durand LPN Start: 02-20-2012 take 1 tablet by taylor th once daily CALCIUM TABS One tablet by mouth daily CALCIUM TABS [id number] Mary Lou Brice Start: 02-20-2012 take 1 tablet by taylor th once daily CALCIUM + D3 600-200 MG-UNIT TABS One tablet by mouth daily CALCIUM CARB-CHOLECALCIFEROL [id number] Beryl Rama Kizzy MORELAND Start: 02-20-2012 take 1 tablet by taylor th once daily CALCIUM TABS One tablet by mouth daily CALCIUM TABS [id number] Mary Lou Brice CALCIUM CARB-CHOLECALCIFEROL (4 sources) Start: 02-20-2012 take 1 tablet by mouth once daily CALCIUM + D3 600-200 MG-UNIT TABS One tablet by mouth daily CALCIUM CARB-CHOLECALCIFEROL [id number] Beryl Rama Durandjesus alberto MORELAND calcium carbonate 1500 mg / cholecalciferol 800 unt chewable tablet (9 sources) Vitamin D Start: 04-01-2016 End: 12-06-2023 Calcium Carbonate-Vitamin D3 1 EACH tablet,chewable Discontinued 1 NMA PO DAILY April 01, 2016 1:00am December 06, 2023 4:32pm Start: 04-01-2016 Calcium Carbon ate-Vitamin D3 Active 1 EACH PO DAILY April 01, 2016 1:00am Start: 02-20-2012 take 1 tablet by taylor th once daily CALCIUM + D3 600-200 MG-UNIT TABS One tablet by mouth daily CALCIUM CARB-CHOLECALCIFEROL [id number] Beryl Durand ASSISTANT PROFESSOR OF PHILOSOPHY doxycycline hyclate 100 mg oral tablet (15 sources) Tetracycline-class Drug Start: 08-22-2024 End: 09-30-2024 take 1 tablet by mouth twice daily Doxycycline Hyclate 100 mg tablet Discontinued 100 mg PO TWICE A DAY August 22, 2024 12:00am September 30, 2024 9:13am Start: 02-07-2023 End: 03-09-2023 take 1 tablet by mouth twice daily Doxycycline Hyclate 100 mg tablet Discontinued 100 mg PO TWICE A DAY February 07, 2023 1:00am March 09, 2023 8:59am Start: 09-11-2018 End: 06-27-2019 take 1 tablet by mouth twice daily Doxycycline Hyclate 100 mg tablet Discontinued 100 mg PO TWICE A DAY September 11, 2018 12:00am June 27, 2019 10:35am FEXOFENADINE HCL TABS (16 sources) Histamine-1 Receptor Antagonist Start: 08-03-2016 take 1 tablet by mouth twice daily MUCINEX ALLERGY TABS One tablet by mouth twice daily FEXOFENADINE HCL TABS [id number] Paola Haskins Start: 08-03-2016 End: 09-08-2016 take 1 tablet by mouth twice daily MUCINEX ALLERGY TABS One tablet by mouth twice daily FEXOFENADINE HCL TABS [id number] Paola Haskins Start: 08-03-2016 End: 09-08-2016 take 1 tablet by mouth twice daily MUCINEX ALLERGY TABS One tablet by mouth twice daily FEXOFENADINE HCL TABS [id number] Paola Haskins Start: 08-03-2016 take 1 tablet by taylor th twice daily MUCINEX ALLERGY TABS One tablet by mouth twice daily FEXOFENADINE HCL TABS [id number] Paola Haskins fluticasone propionate 0.05 mg/actuat metered dose nasal spray (20 sources) Corticosteroid Start: 03-01-2017 End: 03-16-2023 Fluticasone Propionate (Flonase Allergy Relief) 50 mcg/actuation spray,suspension Discontinued 2 NMA INTRANASAL daily as needed September 14, 2021 10:42am March 16, 2023 8:51am Start: 03-01-2017 End: 09-14-2021 Fluticasone Propionate (Flon ase Allergy Relief) 50 mcg/actuation spray,suspension Active 2 SPRAY INTRANASAL daily September 14, 2021 10:42am Start: 08-03-2016 FLONASE ALLERG Y RELIEF 50 MCG/ACT SUSP 2 sprays each nare daily FLUTICASONE PROPIONATE [id number] Paola Haskins Start: 08-03-2016 FLONASE ALLERG Y RELIEF 50 MCG/ACT SUSP 2 sprays each nare daily FLUTICASONE PROPIONATE [id number] Paola Haskins Start: 02-20-2012 End: 08-07-2014 take 1 tablet by mouth twice daily FLUTICASONE PROPIONATE 50 MCG/ACT SUSP One tablet by mouth twice daily FLUTICASONE PROPIONATE [id number] Mary Lou Brice Fluticasone Furoate-Vilanterol (8 sources) Corticosteroid, beta2-Adrenergic Agonist Start: 03-07-2017 End: 11-28-2017 Fluticasone Furoate-Vilanterol (Breo Ellipta) 100-25 mcg/dose blister with device Discontinued 1 NMA INHALATION Q24H 03 05March 07, 2017 1:00am November 28, 2017 9:16am after inhalation, rinse mouth with water and spit out; do not swallow Start: 03-07-2017 End: 11-28-2017 Fluticasone Furoate-Vilanter ol (Breo Ellipta) 100-25 mcg/dose blister with device Discontinued 1 NMA INHALATION Q24H March 07, 2017 1:00am November 28, 2017 9:16am after inhalation, rinse mouth with water and spit out; do not swallow Start: 03-07-2017 End: 11-28-2017 Fluticasone Furoate-Vilanter ol (Breo Ellipta) 100-25 mcg/dose blister with device Discontinued 1 INH INHALATION Q24H March 07, 2017 12:00am November 28, 2017 8:16am after inhalation, rinse mouth with water and spit out; do not swallow Start: 03-07-2017 End: 11-28-2017 Fluticasone Furoate-Vilanter ol (Breo Ellipta) 100-25 mcg/dose blister with device Discontinued 1 INH INHALATION Q24H March 07, 2017 1:00am November 28, 2017 9:16am after inhalation, rinse mouth with water and spit out; do not swallow 12 hr guaiFENesin 600 mg extended release oral tablet (15 sources) Start: 07-28-2021 End: 03-16-2023 take 1 tablet by mouth once as needed, then take 1 tablet by mouth every twelve hours as needed Guaifenesin (Mucinex) 600 mg tablet extended release 12hr Discontinued 600 mg PO ONCE as needed September 14, 2021 10:43am March 16, 2023 8:51am ipratropium bromide 0.021 mg/actuat metered dose nasal spray (8 sources) Anticholinergic Start: 07-28-2021 End: 09-14-2021 Ipratropium [place] 21 mcg (0.03 %) spray,non-aerosol Discontinued 2 NMA INTRANASAL TWICE A DAY July 28, 2021 12:00am September 14, 2021 10:43am administer into each nostril Start: 07-28-2021 End: 09-14-2021 take 1 spray(s) nasal route twice daily Ipratropium [place] Discontinued 2 SPRAY INTRANASAL TWICE A DAY July 28, 2021 12:00am September 14, 2021 10:43am administer into each nostril levoFLOXacin 750 mg oral tablet (20 sources) Quinolone Antimicrobial Start: 03-09-2023 End: 03-16-2023 take 1 tablet by mouth every twenty-four hours Levofloxacin 750 mg tablet Discontinued 750 mg PO Q24H 7 7 0 March 09, 2023 1:00am March 15, 2023 1:00am March 16, 2023 1:03am Start: 12-09-2022 End: 12-14-2022 take 1 tablet by mouth every twenty-four hours Levofloxacin 500 mg tablet Discontinued 500 mg PO Q24H 5 5 0 December 09, 2022 12:00am December 13, 2022 1:00am December 14, 2022 1:05am Start: 07-23-2018 End: 07-28-2018 take 1 tablet by mouth every twenty-four hours Levofloxacin (Levaquin) 500 mg tablet Discontinued 500 mg PO Q24H 5 5 0 July 23, 2018 12:00am July 27, 2018 12:00am July 28, 2018 12:07am Start: 02-01-2018 End: 02-06-2018 take 1 tablet by mouth every twenty-four hours Levofloxacin (Levaquin) 500 mg tablet Discontinued 500 mg PO Q24H 5 5 0 February 01, 2018 1:00am February 05, 2018 1:00am February 06, 2018 1:10am Start: 04-03-2016 End: 03-01-2017 take 1 tablet by mouth once daily Levofloxacin 750 MG tablet Discontinued 750 mg PO DAILY 5 0 April 03, 2016 1:00am March 01, 2017 12:05pm Start: 11-03-2015 End: 11-29-2016 take 1 tablet by mouth once daily LEVAQUIN 500 MG TABS One tablet PO daily LEVOFLOXACIN [id number] Tawanna Anderson CNP loratadine 10 mg oral capsule (18 sources) Start: 02-04-2016 End: 08-17-2016 take 1 tablet by mouth once daily as needed CLARITIN 10 MG CAPS One tablet by mouth daily as needed LORATADINE [id number] Beryl Durand LPN Start: 02-04-2016 End: 08-17-2016 take 1 tablet by mouth once daily as needed CLARITIN 10 MG CAPS One tablet by mouth daily as needed LORATADINE [id number] Beryl Durand LPN mecobalamin (4 sources) Start: 09-15-2022 End: 12-06-2023 Mecobalamin (Vitamin B12) 500 mcg tablet,chewable Discontinued ug PO September 15, 2022 12:00am December 06, 2023 4:33pm MULTIPLE VITAMIN (4 sources) Start: 02-20-2012 take 1 tablet by mouth once daily MULTIVITAMINS TABS One tablet by mouth daily MULTIPLE VITAMIN [id number] Mary Lou Brice MULTIPLE VITAMIN (6 sources) Start: 02-20-2012 take 1 tablet by mouth once daily MULTIVITAMINS TABS One tablet by mouth daily MULTIPLE VITAMIN [id number] Mary Lou Brice Start: 02-20-2012 take 1 tablet by taylor th once daily MULTIVITAMINS TABS One tablet by mouth daily MULTIPLE VITAMIN [id number] BarbaraKamala Brice Multivitamin 1 EACH tablet (4 sources) Start: 04-01-2016 End: 12-06-2023 Multivitamin 1 EACH tablet Discontinued 1 NMA PO DAILY April 01, 2016 1:00am December 06, 2023 4:33pm oseltamivir 75 mg oral capsule (8 sources) Neuraminidase Inhibitor Start: 04-03-2016 End: 03-01-2017 take 1 capsule by mouth twice daily Oseltamivir 75 MG capsule Discontinued 75 mg PO TWICE A DAY 4 0 April 03, 2016 1:00am March 01, 2017 12:05pm predniSONE 10 mg oral tablet (20 sources) Start: 08-22-2024 End: 09-03-2024 Prednisone 10 mg tablet Discontinued 10 mg PO daily 30 12 August 22, 2024 12:00am September 02, 2024 12:00am September 03, 2024 12:07am take 4 tabs for three days, then 3 tabs for three days, then 2 tabs for three days, then 1 tab for 3 days Start: 03-09-2023 End: 09-29-2023 Prednisone 10 mg tablet Discontinued 10 mg PO daily 30 March 09, 2023 1:00am September 29, 2023 9:11am take 4 tabs for three days, then 3 tabs for three days, then 2 tabs for three days, then 1 tab for 3 days Start: 04-29-2022 End: 09-15-2022 Prednisone 10 mg tablet Discontinued 10 mg PO daily 30 April 29, 2022 12:00am September 15, 2022 8:13am take 4 tabs for three days, then 3 tabs for three days, then 2 tabs for three days, then 1 tab for 3 days Start: 07-23-2021 End: 07-28-2021 take 3 tablets by mouth once daily at mealtime Prednisone 20 mg tablet Discontinued 60 mg PO daily 15 July 23, 2021 12:00am July 28, 2021 10:51am administer with food or milk Start: 07-23-2021 End: 07-28-2021 take 60 mg by mouth once daily at mealtime Prednisone Discontinued 60 MG PO daily July 23, 2021 12:00am July 28, 2021 10:51am administer with food or milk Start: 09-11-2018 End: 12-27-2018 Prednisone 10 mg tablet Discontinued 10 mg PO daily 30 0 September 11, 2018 12:00am December 27, 2018 11:08am take 4 tabs for three days, then 3 tabs for three days, then 2 tabs for three days, then 1 tab for 3 days Start: 02-01-2018 End: 04-25-2018 Prednisone 10 mg tablet Discontinued 10 mg PO daily 30 0 February 01, 2018 1:00am April 25, 2018 2:08pm take 4 tabs for three days, then 3 tabs for three days, then 2 tabs for three days, then 1 tab for 3 days Start: 11-29-2016 End: 12-04-2016 take 3 tablets by mouth once daily PREDNISONE 20 MG TABS Take 3 tablets by mouth daily for 5 days. PREDNISONE [id number] Tawanna Anderson SPONGE DIVER Start: 04-03-2016 End: 03-01-2017 Prednisone 10 MG tablet Discontinued 40 mg PO DAILY April 03, 2016 1:00am March 01, 2017 12:05pm Take 40 mg once a day for 5 days then stop. Start: 04-03-2016 End: 03-01-2017 Prednisone Discontinued 40 M G PO DAILY April 03, 2016 1:00am March 01, 2017 12:05pm Take 40 mg once a day for 5 days then stop. Start: 02-04-2016 End: 02-16-2016 PREDNISONE 10 MG TABS Take 4 tabs by mouth for 3 days, then 3 tabs by mouth for 3 days, then 2 tabs by mourth for 3 days, then 1 tab by mouth for 3 days. PREDNISONE [id number] Tawanna Anderson SPONGE DIVER rOPINIRole (20 sources) Nonergot Dopamine Agonist End: 11-26-2014 ROPINIROLE HCL TABS q hs ROPINIROLE HCL TABS [id number] Beryl Reis End: 11-26-2014 ROPINIROLE HCL TABS q hs 201 06/15/20 ROPINIROLE HCL TABS [id number] Beryl Reis ROPINIROLE HCL T ABS q hs ROPINIROLE HCL TABS [id number] Catarino Elder End: 11-26-2014 ROPINIROLE HCL TABS q hs 201 06/15/20 ROPINIROLE HCL TABS [id number] Beryl Reis Problems Active Problems Problem Classification Problem Date Documented Date Episodic/Chronic Abdominal hernia (8 sources) Hiatal hernia; Translations: [Diaphragmatic hernia without obstruction or gangrene] 12-27-2018 Episodic Asthma (9 sources) Moderate persistent asthma; Translations: [Moderate persistent asthma, uncomplicated] Chronic Bacterial infection; unspecified site (1 source) 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; Translations: [Pasteurellosis] 10-03-2024 Episodic Chronic obstructive pulmonary disease and bronchiectasis (20 sources) Acute exacerbation of bronchiectasis; Translations: [Bronchiectasis] Onset: 08-07-2014 11-03-2015 Chronic Esophageal disorders (8 sources) Gastroesophageal reflux disease; Translations: [Gastro-esophageal reflux disease without esophagitis] 12-27-2018 Chronic Influenza (8 sources) Influenza due to Influenza A virus; Translations: [Influenza due to other identified influenza virus with other respiratory manifestations] 06-01-2017 Episodic Osteoarthritis (1 source) Unilateral primary osteoarthritis, right hip; Translations: [Unilateral primary osteoarthritis, right hip] Onset: 12-07-2023 Chronic Osteoporosis (1 source) Age-related osteoporosis without current pathological fracture; Translations: [Age-related osteoporosis without current pathological fracture] Onset: 09-20-2024 Chronic Other acquired deformities (10 sources) Scoliosis of thoracic spine; Translations: [Other forms of scoliosis, thoracic region] 02-20-2012 Chronic Other acquired deformities (8 sources) Scoliosis deformity of spine; Translations: [Scoliosis, unspecified] 03-08-2017 Chronic Other acquired deformities (1 source) Scoliosis, unspecified; Translations: [Scoliosis [and kyphoscoliosis], idiopathic] Chronic Other connective tissue disease (20 sources) Trochanteric bursitis; Translations: [Trochanteric bursitis, unspecified hip] Onset: 09-20-2013 09-20-2013 Episodic Other lower respiratory disease (19 sources) Snoring; Translations: [Hypoxia] Onset: 08-07-2014 08-07-2014 Episodic Other lower respiratory disease (18 sources) Hypoxia; Translations: [Hypoxemia] Onset: 08-03-2016 08-03-2016 Episodic Other nervous system disorders (18 sources) Neuropathy; Translations: [Polyneuropathy, unspecified] Onset: 02-20-2014 02-20-2014 Chronic Other non-traumatic joint disorders (9 sources) Hip pain; Translations: [Pain in unspecified hip] Onset: 09-20-2013 09-20-2013 Episodic Other non-traumatic joint disorders (8 sources) Pain in left knee; Translations: [Left knee pain] 12-27-2018 Episodic Other non-traumatic joint disorders (4 sources) Pain in unspecified hip; Translations: [Arthralgia of hip] 12-27-2018 Episodic Other screening for suspected conditions (not mental disorders or infectious disease) (1 source) Encounter for screening mammogram for malignant neoplasm of breast; Translations: [Encounter for screening mammogram for malignant neoplasm of breast] Onset: 09-30-2024 Episodic Other upper respiratory disease (8 sources) Pain in face; Translations: [Other specified disorders of nose and nasal sinuses] 12-27-2018 Episodic Residual codes; unclassified (8 sources) Hypersomnia; Translations: [Hypersomnia, unspecified] 11-28-2017 Chronic Residual codes; unclassified (8 sources) H/O: steroid therapy; Translations: [Personal history of systemic steroid therapy] 12-27-2018 Episodic Comment on above: Dr. gtz, 01/2016 Dr. gtz, 01/2016, 08/2024 Residual codes; unclassified (8 sources) History of hernia repair; Translations: [Other specified postprocedural states] 12-27-2018 Episodic Comment on above: 10/27/14 Respiratory failure; insufficiency; arrest (adult) (8 sources) Chronic hypoxemic respiratory failure; Translations: [Chronic respiratory failure with hypoxia] 11-28-2017 Chronic Respiratory failure; insufficiency; arrest (adult) (8 sources) Acute respiratory failure; Translations: [Acute respiratory failure with hypoxia] 06-01-2017 Episodic Spondylosis; intervertebral disc disorders; other back problems (20 sources) Low back pain; Translations: [Chronic back pain ] 02-20-2012 Episodic Comment on above: thoracic Thyroid disorders (8 sources) Hypothyroidism; Translations: [Hypothyroidism, unspecified] 03-01-2017 Chronic Unclassified (1 source) 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 Unclassified (2 sources) A28.0 - Pasteurellosis Unclassified (1 source) Other intervertebral disc degeneration, lumbar region without mention of lumbar back pain or lower extremity pain; Translations: [Other intervertebral disc degeneration, lumbar region without mention of lumbar back pain or lower extremity pain] Onset: 07-09-2024 Past or Other Problems Problem Classification Problem Date Documented Da te Episodic/Chronic Headache; including migraine (10 sources) Sinus headache; Translations: [Headache] Onset: 02-23-2016 02-23-2016 Episodic Other lower respiratory disease (2 sources) Hypoxemia; Translations: [Hypoxemia] Onset: 12-08-2023 Episodic Other lower respiratory disease (1 source) Shortness of breath; Translations: [Shortness of breath] Onset: 03-20-2024 Episodic Other non-traumatic joint disorders (15 sources) Knee pain; Translations: [Hip pain] Onset: 09-20-2013 02-20-2014 Episodic Pneumonia (except that caused by tuberculosis or sexually transmitted disease) (5 sources) Pneumonia; Translations: [Pneumonia, unspecified organism] Onset: 12-08-2023 12-16-2023 Episodic Unclassified (8 sources) EGD, bronchoscopy 12-27-2018 Comment on above: Results Test Name Value Interpretation Reference Range Facility Respiratory Cultureon 2024 [facility] Microorganism Spec Cult Microorganism Spec Cult Pasteurella multocida Amount Growth 3+ Beta Lactamase-Reportabl e Negative Pasteurella multocida: REACTION Meropenem Islt XOCHITL <=0.25 S Normal [facility] Comment on above: Performed By: #### M , M1 #### [facility] [address] [place], [address] Gram Stainon 10-01-2024 GS Acceptable Specimen? Yes (<25 Epithelial cells per/lpf) Gram Stain 3+ Gram negative rods Rare Gram positive cocci 3+ White Blood Cells Normal [facility] Comment on above: Performed By: #### M 100, M1.2400 #### [facility] [address] [place], [address] Gram stainOrdered By: Des Anderson on 10-01-2024 Microscopic observation Gram stain Nom (Unsp spec) [facility] Microbial respiratory cultur eOrdered By: Tawanna Anderson on 10-01-2024 Microorganism identified Cx Nom (Unsp spec) Pasteurella multocida Abnormal [facility] Pulmonary Visit Reporton Pulmonary Visit Report [facility] [address] [place] [address] OFFICE VISIT Date of Service: 09/30/24 MR#: [id number] Acct: [id number] Name: PATIENCE VALDES Rep #: [id number] : 1950 Provider: ELENO Anderson Age/Sex: 74/F Location: [facility] Status: Signed Assessment and Plan Assessment and Plan (1) Bronchiectasis: Status: Chronic Qualifiers: Bronchiectasis type: uncomplicated Qualified Code(s): J47.9 - Bronchiectasis, uncomplicated Plan: Deteriorated. It appears as though she may be in exacerbation, likely previous exacerbation was not completely resolved. I have requested a sputum for culture and sensitivity. The patient believes that she will be able to produce 1 in the morning and get it to the lab within 2 hours. No change in maintenance medications. I am going to hold off on ordering antibiotics until I can see the results of the sputum sample. I will likely order prednisone as well. Test results to be discussed by phone. I am going to follow-up with her in 2 months to make sure that we keep a closer eye on her. (2) Hypoxia: Status: Chronic Plan: The patient is using and benefiting from oxygen. Continue to utilize to maintain a saturation of 89-92%. Follow-up in 2 months Orders: Orders Culture, Sputum Today J47.9 - Bronchiectasis, uncomplicated Plan Details Additional Comments: This note was generated with Edge[employer] software. It may contain incorrect words, spelling, and punctuation that were not noted in checking the note before signing. Follow Up: 2 Months HPI 1 Y FU Chief Complaint: routine follow up HPI Comments Details: This patient presents to the office today for a follow-up of her moderate persistent asthma with bronchiectasis. She is ambulatory. She has not recently been seen in the ED or urgent care for any respiratory illness. She was hospitalized in December 2023 at [facility] for pneumonia. She was treated with antibiotics and prednisone by this practice August 22, 2024. She was treated with 10 days of doxycycline. She does report that symptoms improved, however they did not completely resolved. She did not contact the office to report continued symptoms. She is compliant with use of Advair once daily. She does report rinsing her mouth out after each use. She denies any medication side effect such as sore throat or thrush. She is using Mucinex twice daily. She uses her Acapella device. She denies any difficulty with shortness of breath. She reports a daily cough of green-colored sputum. Sometimes first thing in the morning and has black streaks. She denies any dawn hemoptysis. She denies She does denies any wheezing, chest tightness, chest pain or palpitations. She has not had any fever, chills or body aches. She is compliant with supplemental oxygen. She uses between 2 and 3 L/min continuous on exertion. She is per minute continuous with sleep Intake Vital Signs 09/29/23 08:27 09/30/24 07:52 Height 5 ft 3 in 5 ft 2.99 in Weight: 142 lb BMI 25.1 BP 140/72 H Blood Pressure Location Lt brachial Position Sitting Respiration 16 Pulse 69 Pulse Source Monitor Temp 97.3 F L Temperature Source Temporal Artery Pulse Oximetry (%) 95 Oxygen Delivery Method room air Intake Visit Reasons: 1 Y FU Chief Complaint: Productive cough DME Vendor: [employer] POC Accompanied by: Self Is patient in pain?: No Allergies No Known Allergies Allergy (Verified 09/30/24 09:13) Medications ???Medication ???Instructions ???Recorded ???Confirmed ???Type levothyroxine 150 mcg tablet 88 mcg PO DAILY 03/01/17 09/30/24 History albuterol sulfate 2.5 mg/3 mL 2.5 mg (3 mL) inhalation Q6H PRN 0 02/08/23 12/06/23 Rx (0.083 %) solution for nebulization PRN J45.40, asthma #120 vials albuterol sulfate 90 mcg/actuation 2 puff inhalation Q6H PRN 12/06/23 Rx aerosol inhaler (Ventolin HFA) shortness of breath or wheezing #1 device fluticasone 250 mcg-salmeterol 50 1 inh inhalation BID #3 device 12/06/23 Rx mcg/dose blistr powdr for inhalation (Advair Diskus) Vitamin D3 25 mcg PO DAILY 12/06/23 09/30/24 History meloxicam 7.5 mg tablet 7.5 mg PO DAILY 12/06/23 09/30/24 History omeprazole 20 mg capsule,delayed 20 mg PO DAILY 12/06/23 09/30/24 H istory release Have you fallen in the past year?: No [facility] Medical History Pneumonia Osteopenia after menopause Former smoker On home oxygen therapy Chronic respiratory failure with hypoxia Asthma, moderate persistent Hypersomnia Hiatal hernia GERD (gastroesophageal reflux disease) Lumbar back pain Hip pain Greater trochanteric bursitis Left knee pain (more content not included)... Normal [facility] Anion gap in Serum or Plasma Ordered By: Jag Buck on 09-16-2024 Anion gap [Moles/Vol] 12 mmol/L 5-15 [facility] BUN/creatinine ratioOrdered By: Jag Buck on 09-16-2024 Urea nitrogen/Creatinine [Mass ratio] 28.1 mg/mg High 10- [facility] Basic Metabolic Profile (BMP )on 09-16-2024 BUN/CRE 28.1 RATIO High - [facility] Comment on above: Order Comment: Order Date: 04/22/24 Order Info: 0667-1 - BMP Order Info: 01659-1 - MG Order Info: 3016-3 - TSH Performed By: #### L 500.0419 #### [facility] [address] [place], [place], [id number] Calcium [Mass/Vol] 9.8 mg/dL Normal 7.6-11.0 [facility] Comment on above: Order Comment: Order Date: 04/22/24 Order Info: 0667-1 - BMP Order Info: 29131-5 - MG Order Info: 3016-3 - TSH Performed By: #### L 500.2500 #### [facility] [address] [place], [address] Order Comment: Order Date: 04/22/24Order Info: 0667-1 - BMPOrder Info: [id number] - MGOrder Info: 3016-3 - TSH Performed By: #### M 100.2000, M100.2400 #### [facility] [address] [place], [address] Chloride [Moles/Vol] 102 mmol/L Normal 98-108 [facility] Comment on above: Order Comment: Order Date: 04/22/24 Order Info: 666-1 - BMP Order Info: [id number] - MG Order Info: 3016-3 - TSH Performed By: #### L 500.2500 #### [facility] [address] [place], [address] CO2 [Moles/Vol] 26.6 mmol/L Normal 21.0-32.0 [facility] Comment on above: Order Comment: Order Date: 04/22/24 Order Info: 666-1 - BMP Order Info: [id number] - MG Order Info: 3016-3 - TSH Performed By: #### L 500.2500 #### [facility] [address] [place], [address] Creatinine [Mass/Vol] 0.83 mg/dL Normal 0.70-1.20 [facility] Comment on above: Order Comment: Order Date: 04/22/24 Order Info: 06-1 - BMP Order Info: [id number] - MG Order Info: 3016-3 - TSH Performed By: #### L 500.2500 #### [facility] [address] [place], [address] GAP 12 Normal 5-15 [facility] Comment on above: Order Comment: Order Date: 04/22/24 Order Info: 0667-1 - BMP Order Info: [id number] - MG Order Info: 3016-3 - TSH Performed By: #### L 500.2500 #### [facility] [address] [place], [address] GFR/1.73 sq M.predicted among non-blacks MDRD (S/P/Bld) [Vol rate/Area] 74 mL/min/{1.73_m2} Normal >60 [facility] Comment on above: Order Comment: Order Date: 04/22/24 Order Info: 06- - BMP Order Info: [id number] - MG Order Info: 3015-3 - TSH Result Comment: mL/m in/1.73m2 CKD-EPI Creatinine Equation (2020) Performed By: #### L 500.2500 #### [facility] [address] [place], [address] Glucose [Mass/Vol] 81 mg/dL Normal 70-99 [facility] Comment on above: Order Comment: Order Date: 04/22/24 Order Info: 06 - BMP Order Info: [id number] - MG Order Info: 3 - TSH Performed By: #### L 500.2500 #### [facility] [address] [place], [address] Potassium [Moles/Vol] 4.2 mmol/L Normal 3.3-5.1 [facility] Comment on above: Order Comment: Order Date: 04/22/24 Order Info: 0667- - BMP Order Info: [id number] - MG Order Info: 3015-3 - TSH Performed By: #### L 500.2500 #### [facility] [address] [place], [address] Sodium [Moles/Vol] 140 mmol/L Normal 133-145 [facility] Comment on above: Order Comment: Order Date: 04/22/24 Order Info: 0667- - BMP Order Info: [id number] - MG Order Info: 6-3 - TSH Performed By: #### L 500.2500 #### [facility] [address] [place], [place], [address] Urea nitrogen [Mass/Vol] 23 mg/dL High 4-19 [facility] Comment on above: Order Comment: Order Date: 04/22/24 Order Info: 0667-1 - BMP Order Info: [id number] - MG Order Info: 3016-3 - TSH Performed By: #### L 500.2500 #### [facility] [address] [place], [place], [address] Carbon dioxide, total [Moles /volume] in Central venous bloodOrdered By: Jag Buck on 09-16-2024 CO2 [Moles/Vol] 26.6 mmol/L 21.0-32.0 [facility] Chloride assayOrdered By: Shahana Buck on 09-16-2024 Chloride [Moles/Vol] 102 mmol/L 98-108 [facility] Glomerular filtration rate ( GFR) estimation/1.73 sq m using serum, plasma, or whole bOrdered By: Jag Buck on 09-16-2024 GFR/1.73 sq M.predicted among non-blacks MDRD (S/P/Bld) [Vol rate/Area] 74 mL/min/{1.73_m2} >60 [facility] Comment on above: mL/min/1.73m2 CKD-EP I Creatinine Equation (2020) Magnesiumon 09-16-2024 Magnesium [Mass/Vol] 2.1 mg/dL Normal 1.5-2.2 [facility] Comment on above: Order Comment: Order Date: 04/22/24 Order Info: 0667-1 - BMP Order Info: [id number] - MG Order Info: 3016-3 - TSH Performed By: #### L 501.5200, L501.9520, L509.1000 #### [facility] [address] [place], [address] Magnesium measurement (mass/ volume)Ordered By: Jag Buck on 09-16-2024 Magnesium (Unsp spec) [Mass/Vol] 2.1 mg/dL 1.5-2.2 [facility] PTHINon 09-16-2024 PTH 29 pg/mL Normal 11-61 [facility] Comment on above: Order Comment: Order Date: 04/22/24 Order Info: [id number] - PTHIN Result Comment: Hemo lysis present, Results??could be affected. ?? Performed By: #### L 501.5200, L501.9520, L509.1000 #### [facility] [address] [place], [address] Potassium measurement (mass/ volume)Ordered By: Jag Buck on 09-16-2024 Potassium (Unsp spec) [Mass/Vol] 4.2 mmol/L 3.3-5.1 [facility] Serum creatinine measurement (mass/volume)Ordered By: Jag Buck on 09-16-2024 Creatinine [Mass/Vol] 0.83 mg/dL 0.70-1.20 [facility] Serum glucose measurement (m ass/volume)Ordered By: Jag Buck on 09-16-2024 Glucose [Mass/Vol] 81 mg/dL 70-99 [facility] Serum or plasma calcium marcio urement (mass/volume)Ordered By: Jag Buck on 09-16-2024 Calcium [Mass/Vol] 9.8 mg/dL 7.6-11.0 [facility] Comment on above: *Additional results available. Contact laboratory/see report* Serum or plasma urea nitroge n measurement (mass/volume)Ordered By: Jag Buck on 09-16-2024 Urea nitrogen [Mass/Vol] 23 mg/dL High 4-19 [facility] Sodium levelOrdered By: Dimas Buck on 09-16-2024 Sodium [Moles/Vol] 140 mmol/L 133-145 [facility] T4 Free Directon 09-16-2024 T4 FREE DIRECT 1.30 ng/dL Normal 0.76-1.46 [facility] Comment on above: Order Comment: Order Date: 04/22/24Order Info: 0667-1 - BMPOrder Info: [id number] - MGOrder Info: 3016-3 - TSH Performed By: #### M 100.2000, M100.2400 #### [facility] [address], [address] T4 freeOrdered By: Raji er Cielo on 09-16-2024 Free T4 [Mass/Vol] 1.30 ng/dL 0.76-1.46 [facility] TSH DL <= 0.005 mIU/L QnOrde red By: Rajimaty Cielo on 09-16-2024 TSH Qn 12.400 uIU/mL High 0.300-4.200 [facility] Thyroid Stim Hormone (TSH)on 09-16-2024 TSH 12.400 uIU/mL High 0.300-4.200 [facility] Comment on above: Order Comment: Order Date: 04/22/24 Order Info: 0667-1 - BMP Order Info: [id number] - MG Order Info: 3016-3 - TSH Performed By: #### L 501.5200, L501.9520, L509.1000 #### [facility] [address], [address] Vitamin D,25 Hydroxyon 09-16 Vitamin D 25-OH 41.8 ng/mL Normal 30-100 [facility] Comment on above: Order Comment: Order Date: 04/22/24Order Info: 0667-1 - BMPOrder Info: [id number] - MGOrder Info: 3016-3 - TSH Result Comment: Chiqui min D Status Deficiency: <20 ng/mL (50nmol/L) Insufficiency: 20-30 ng/mL (50-75 nmol/L) Sufficiency: 30-100 ng/mL (75-250 nmol/L) Toxicity: >100 ng/mL (>250 nmol/L) Performed By: #### M 100.2000, M100.2400 #### [facility] [address], [address] L/S Spine w Bend Min 6 Vwon 07-04-2024 L/S Spine w Bend Min 6 [facility] [address] [address] L/S Spine w Bend Min 6 Vw MR#: [id number] Acct: [id number] Name: PATIENCE VALDES Rep #: [id number] : 1950 F 74 From: Manuel You MD PCP: Dr. Jennifer Hood MD Status: REG CLI Study: L/S Spine w Bend Min 6 Vw Date of Exam: Exam# [id number] Ordering Dr: Ulises Srivastava MD PROCEDURE: L/S SPINE W BEND MIN 6 VW 07/04/2024 REASON FOR EXAM: LUMBAR SPINE DISC DEGENERATION TECHNIQUE: Five views; AP, bilateral oblique, lateral and coned-down L5-S1 view with 3 obliques and 3 laterals, 8 total images COMPARISON: None available FINDINGS: The study is extremely difficult to interpret/evaluate due to the severe scoliosis and deformity and osteopenia. Multilevel thoracolumbar spondylosis and discogenic change. It is difficult to distinguish T12, L1 and L2 with appearance of possible anterior wedging deformity of L1 and L2. There is severe appearing disc space narrowing and degenerative endplate changes. L3, L4 and L5 vertebral body height appear within limits. Dzvtppzz-dn-zzrfhp disc space narrowing suggested L2-3. Mild appearing disc space narrowing L3-4. Disc spaces L4-5 and L5-S1 appear within limits. Bilateral multilevel facet degenerative changes noted. RAD/L/S Spine w Bend Min 6 Vw IMPRESSION: The study is extremely difficult to interpret/evaluate due to the severe scoliosis and deformity and osteopenia. Multilevel thoracolumbar spondylosis and discogenic change as above. It is difficult to distinguish T12, L1 and L2 with appearance of possible anterior wedging deformity of L1 and L2. Reading Location: [facility] CC: Dr. Jennifer Hood MD; Dr. Ulises Srivastava MD Senior Integration Architect: Signed Normal [facility] Culture, Blood (WB)on 2023 CUB Blood cultures x2, from two different sites No growth in 5 days. Normal [facility] Comment on above: Performed By: #### L 500.2500 #### [facility] [address] [place] [address]. [place], [address] Respiratory Cultureon 2023 RESPC Not obtained in 1 hr, induce w/nebulized 0.9% NaCL Mixed normal respiratory jayant. No Haemophilus, beta-hemolytic Streptococcus or Staphylococcus aureus isolated. Streptococcus pneumoniae Amount Growth 2+ Streptococcus pneumoniae: REACTION Cefotaxime Islt XOCHITL <=0.12 S Cefotaxime Islt XOCHITL <=0.12 S cefTRIAXone Islt XOCHITL <=0.12 S cefTRIAXone Islt XOCHITL <=0.12 S Clindamycin Islt XOCHITL <=0.25 S Erythromycin Islt XOCHITL <=0.12 S levoFLOXacin Islt XOCHITL 1 S Moxifloxacin Islt XOCHITL 0.12 S TMP SMX Islt XOCHITL 40 I Penicillin Islt XOCHITL <=0.06 S Penicillin Islt XOCHITL <=0.06 S Penicillin Islt XOCHITL <=0.06 S Normal [facility] Comment on above: Performed By: #### L 501.5200, L501.9520, L509.1000 #### [facility] [address] [place], [address] CBC W/Diff, Automatedon Absolute Lymph 2.06 X10 3/uL Normal 0.83-4.51 [facility] Comment on above: Performed By: #### M , #### [facility] [address] [place], [address] Absolute Neut 6.8 X10 3/uL Normal 2.0-7.7 [facility] Comment on above: Performed By: #### M , #### [facility] [address] [place], [address] Basophils/100 WBC (Bld) 0.5 % Normal 0-1 [facility] Comment on above: Performed By: #### M , #### [facility] [address] [place], [address] Eosinophils/100 WBC (Bld) 3.6 % Normal 0-5 [facility] Comment on above: Performed By: #### M , #### [facility] [address] [place], [address] Erythrocyte distribution width (RBC) [Ratio] 12.2 % Normal 11.6-14.6 [facility] Comment on above: Performed By: #### M , #### [facility] [address] [place], [address] Hematocrit (Bld) [Volume fraction] 41.0 % Normal 37-47 [facility] Comment on above: Performed By: #### M , #### [facility] [address] [place], [address] Hemoglobin (Bld) [Mass/Vol] 12.5 g/dL Normal 12.0-15.0 [facility] Comment on above: Performed By: #### M , #### [facility] [address] [place], [address] IG% 0.500 Normal 0.0-0.9 [facility] Comment on above: Result Comment: IG% - Immature Granulocytes (promyelocytes, myelocytes and metamyelocytes) > 1% indicates that a LEFT SHIFT is Present. Performed By: #### M , #### [facility] [address] [place], [address] Lymphocytes/100 WBC (Bld) 20.8 % Normal 19-41 [facility] Comment on above: Performed By: #### M , #### [facility] [address] [place], [address] MCH (RBC) [Entitic mass] 28.1 pg Normal 27.0-32.0 [facility] Comment on above: Performed By: #### M , #### [facility] [address] [place], [address] MCHC (RBC) [Mass/Vol] 30.5 g/dL Low 32-36 [facility] Comment on above: Performed By: #### M , #### [facility] [address] [place], [address] MCV (RBC) [Entitic vol] 92.1 fL Normal 81-99 [facility] Comment on above: Performed By: #### M , #### [facility] [address] [place], [address] Monocytes/100 WBC (Bld) 6.3 % Normal 0-10 [facility] Comment on above: Performed By: #### M , #### [facility] [address] [place], [address] Neutrophils/100 WBC (Bld) 68.3 % Normal 47-70 [facility] Comment on above: Performed By: #### M , #### [facility] [address] [place], [address] Nucleated RBC (Bld) [#/Vol] 0 10*3/uL Normal 0-5 [facility] Comment on above: Performed By: #### M , #### [facility] [address] [place], [address] Platelet mean volume (Bld) [Entitic vol] 9.6 fL Normal 6.2-12.0 [facility] Comment on above: Performed By: #### M , #### [facility] [address] [place], [address] Platelets (Bld) [#/Vol] 318 10*3/uL Normal 150-450 [facility] Comment on above: Performed By: #### M , #### [facility] [address] [place], [address] RBC (Bld) [#/Vol] 4.45 10*6/uL Normal 4.2-5.4 [facility] Comment on above: Performed By: #### M , #### [facility] [address] [place], [address] RDW SD 41.2 fl Normal 35.1-43.9 [facility] Comment on above: Performed By: #### M , #### [facility] [address] [place], [address] WBC (Bld) [#/Vol] 9.9 10*3/uL Normal 4.4-11.0 [facility] Comment on above: Performed By: #### M , #### [facility] [address] [place], [address] Discharge Instructionon 0 Discharge Instruction [facility] Medical Records Department [address] [place] [address] Instructions for Home/Discharge Instructions 12/08/23 0911 MR#: [id number] Acct: [id number] Name: PATIENCE VALDES Rep #: [id number] : 1950 73 From: Orlando Guevara DO PCP: Dr. Jennifer Hood MD Status:ADM IN Discharge Instructions Diet Discharge Diet: No restrictions Activity Discharge Activity: Return to Normal Activity Weight Bearing Status: Full weight bearing Follow Up Care Test Results: Test results from this visit will be discussed in further detail at your follow-up appointment, if applicable. Discharge Plan Admission Admit Date/Time: 12/06/23 16:24 Primary Reason for Your Visit: Community-acquired pneumonia-strep pneumoniae Attending Provider: Orlando Guevara Primary Care Provider: Jolliff,Jennifer S Consulting Providers: Damien Mariano Discharge Orders/Prescription s Prescriptions: New amoxicillin-pot clavulanate [Augmentin] 500-125 mg tablet 1 tab PO TID Qty: 21 0RF Rx Instructions: 1 3 times a day with food Continued alendronate [Fosamax] 70 mg tablet 70 mg PO QWEEK albuterol sulfate [Ventolin HFA] 90 mcg/actuation HFA aerosol inhaler 2 puff INHALATION Q6H PRN (Reason: shortness of breath or wheezing) Qty: 1 1RF levothyroxine 150 MCG tablet 88 mcg PO DAILY Patient Comments: thyroid Vitamin D3 25 mcg PO DAILY meloxicam 7.5 mg tablet 7.5 mg PO DAILY ascorbic acid (vitamin C) [C-500] 500 mg tablet 500 mg PO DAILY omeprazole 20 mg capsule,delayed release(DR/EC) 20 mg PO DAILY albuterol sulfate 2.5 mg /3 mL (0.083 %) solution for nebulization 2.5 mg INHALATION Q6H PRN PRN (Reason: J45.40, asthma) Qty: 120 3RF Advair Diskus 250-50 mcg/dose blister with device 1 inh INHALATION BID Qty: 3 3RF Referrals / Follow Up: Jennifer Hood MD [Primary Care Provider] - Within 2 Weeks Disposition Disposition (needs filled in before D/C Order can be placed): Home, Self Care 12/08/23 0916 Orlando Guevara DO CC: Dr. Jennifer Hood MD; Dr. Damien Mariano DO Signed Normal [facility] Urine Cultureon 12-08-2023 [facility]RC Proteus mirabilis [place] Count >100,000 Proteus mirabilis: REACTION Ampicillin Islt XOCHITL <=2 Ampicillin+Sulbac Islt XOCHITL <=2 S ceFAZolin Islt XOCHITL <=4 S Cefepime Islt XOCHITL <=0.12 S cefTRIAXone Islt XOCHITL <=0.25 S Ciprofloxacin Islt XOCHITL <=0.25 S Gentamicin Islt XOCHITL <=1 S levoFLOXacin Islt XOCHITL <=0.12 S Nitrofurantoin Islt XOCHITL 128 R Pip+Tazo Islt XOCHITL <=4 S Tobramycin Islt XOCHITL <=1 S TMP SMX Islt XOCHITL <=20 S Normal [facility] Comment on above: Performed By: #### M 100.678, M100.2200, L400.0001 #### [facility] [address] [place], [address] Basic Metabolic Profile (BMP )on 12-07-2023 BUN/CRE 15.4 RATIO Normal 10-20 [facility] Comment on above: Performed By: #### M , #### [facility] [address] [place], [address] CA,Total 8.9 mg/dL Normal 8.5-10.1 [facility] Comment on above: Performed By: #### M , #### [facility] [address] [place], [address] Chloride [Moles/Vol] 102 mmol/L Normal 98-107 [facility] Comment on above: Performed By: #### M , #### [facility] [address] [place], [address] CO2 [Moles/Vol] 26.0 mmol/L Normal 21.0-32.0 [facility] Comment on above: Performed By: #### M , #### [facility] [address] [place], [address] Creatinine [Mass/Vol] 0.71 mg/dL Normal 0.55-1.02 [facility] Comment on above: Result Comment: The validity of the calculated GFR GFRAA in patients over 70 years has not been determined. Clinical correlation is essential. Performed By: #### M , #### [facility] [address] [place], [address] ECRCL 53.55 ml/min Normal [facility] Comment on above: Performed By: #### M , #### [facility] [address] [place], [address] EST GFR - AA 103 mL/min Normal >60 [facility] Comment on above: Result Comment: Afri can Swazi GFR Calc Performed By: #### M , #### [facility] [address] [place], [address] GAP 7 Normal 5-15 [facility] Comment on above: Performed By: #### M , #### [facility] [address] [place], [address] GFR/1.73 sq M.predicted among non-blacks MDRD (S/P/Bld) [Vol rate/Area] 85 mL/min/{1.73_m2} Normal >60 [facility] Comment on above: Result Comment: Non- GFR Calc Performed By: #### M , #### [facility] [address] [place], [address] Glucose [Mass/Vol] 109 mg/dL High 74-106 [facility] Comment on above: Result Comment: Fast ing Glucose result from 100 to 125 mg/dL suggests IMPAIRED HOMEOSTASIS per A.D.A. criteria. Performed By: #### M , #### [facility] [address] [place], [address] Potassium [Moles/Vol] 3.7 mmol/L Normal 3.5-5.1 [facility] Comment on above: Performed By: #### M , #### [facility] [address] [place], [address] Sodium [Moles/Vol] 135 mmol/L Low 136-145 [facility] Comment on above: Performed By: #### M , #### [facility] [address] [place], [address] Urea nitrogen [Mass/Vol] 11 mg/dL Normal 7-18 [facility] Comment on above: Performed By: #### M , #### [facility] [address] [place], [address] CBC W/Diff, Automatedon 10-3 -2023 Absolute Lymph 1.54 X10 3/uL Normal 0.83-4.51 [facility] Comment on above: Performed By: #### M , #### [facility] [address] [place], [address] Absolute Neut 11.3 X10 3/uL High 2.0-7.7 [facility] Comment on above: Performed By: #### M , #### [facility] [address] [place], [address] Basophils/100 WBC (Bld) 0.2 % Normal 0-1 [facility] Comment on above: Performed By: #### M , #### [facility] [address] [place], [address] Eosinophils/100 WBC (Bld) 1.2 % Normal 0-5 [facility] Comment on above: Performed By: #### M , #### [facility] [address] [place], [address] Erythrocyte distribution width (RBC) [Ratio] 12.4 % Normal 11.6-14.6 [facility] Comment on above: Performed By: #### M , #### [facility] [address] [place], [address] Hematocrit (Bld) [Volume fraction] 35.7 % Low 37-47 [facility] Comment on above: Performed By: #### M , #### [facility] [address] [place], [address] Hemoglobin (Bld) [Mass/Vol] 11.5 g/dL Low 12.0-15.0 [facility] Comment on above: Performed By: #### M , #### [facility] [address] [place], [address] IG% 0.600 Normal 0.0-0.9 [facility] Comment on above: Result Comment: IG% - Immature Granulocytes (promyelocytes, myelocytes and metamyelocytes) > 1% indicates that a LEFT SHIFT is Present. Performed By: #### M , #### [facility] [address] [place], [address] Lymphocytes/100 WBC (Bld) 10.9 % Low 19-41 [facility] Comment on above: Performed By: #### M , #### [facility] [address] [place], [address] MCH (RBC) [Entitic mass] 28.9 pg Normal 27.0-32.0 [facility] Comment on above: Performed By: #### M , #### [facility] [address] [place], [address] MCHC (RBC) [Mass/Vol] 32.2 g/dL Normal 32-36 [facility] Comment on above: Performed By: #### M , #### [facility] [address] [place], [address] MCV (RBC) [Entitic vol] 89.7 fL Normal 81-99 [facility] Comment on above: Performed By: #### M , #### [facility] [address] [place], [address] Monocytes/100 WBC (Bld) 6.6 % Normal 0-10 [facility] Comment on above: Performed By: #### M , #### [facility] [address] [place], [address] Neutrophils/100 WBC (Bld) 80.5 % High 47-70 [facility] Comment on above: Performed By: #### M , #### [facility] [address] [place], [address] Nucleated RBC (Bld) [#/Vol] 0 10*3/uL Normal 0-5 [facility] Comment on above: Performed By: #### M , #### [facility] [address] [place], [address] Platelet mean volume (Bld) [Entitic vol] 9.7 fL Normal 6.2-12.0 [facility] Comment on above: Performed By: #### M , #### [facility] [address] [place], [address] Platelets (Bld) [#/Vol] 282 10*3/uL Normal 150-450 [facility] Comment on above: Performed By: #### M , #### [facility] [address] [place], [address] RBC (Bld) [#/Vol] 3.98 10*6/uL Low 4.2-5.4 [facility] Comment on above: Performed By: #### M , #### [facility] [address] [place], [address] RDW SD 40.7 fl Normal 35.1-43.9 [facility] Comment on above: Performed By: #### M 100.1999, M100.2400 #### [facility] [address] [place], [address] WBC (Bld) [#/Vol] 14.1 10*3/uL High 4.4-11.0 [facility] Comment on above: Performed By: #### M 100.1999, M100.2400 #### [facility] [address] [place], [address] Gram Stainon 12-07-2023 GS Not obtained in 1 hr, induce w/nebulized 0.9% NaCL Acceptable Specimen? Yes (<25 Epithelial cells per/lpf) Gram Stain 3+ White Blood Cells 2+ Gram positive cocci Rare Gram positive rods No Epithelial cells Normal [facility] Comment on above: Performed By: #### L 501.5200, L501.9520, L509.1000 #### [facility] [address] [place], [address] Legionella Antigen Urineon 1 LEGU Comments: Only Recommended for severe cases of pneumonia Only Recommended for severe cases of pneumonia URINE, CLEAN CATCH Legionella Antigen result interpretation: L pneumo Ag Ur Ql Negative Presumptive negative for Legionella pneumophila serogroup 1 antigen in urine, suggesting no recent or current infection. Legionella Ag, Urine Negative (See interpretation below) Normal [facility] Comment on above: Performed By: #### L 501.5200, L501.9520, L509.1000 #### [facility] [address] [place], [address] Strep pneumoniae Antig(UR,CS F)on 12-07-2023 STPAG Comments: Only Recommended for severe cases of pneumonia Only Recommended for severe cases of pneumonia URINE, CLEAN CATCH URINE INTERPRETATION Positive Urine Positive for pneumococcal pneumonia. Copy of report sent to Infection [facility] [id number] 12/07/23 0852 NATALIA. RESULTS CALLED TO [facility] 12/07/23 0853 Shirley Smith. REPORT READ BACK BY [facility]. Strep pneumo Test Urine POSITIVE for pneumococcal pneumonia.A Streptococcus pneumonia Ag Normal [facility] Comment on above: Performed By: #### L 501.5200, L501.9520, L509.1000 #### [facility] [address] [place], [address] 12 Lead EKGon 12-06-2023 12 Lead EKG [facility] [address] [place] [address] 12 Lead EKG 12/06/23 1019 MR#: [id number] Acct: [id number] Name: PATIENCE VALDES Rep #: [id number] : 1950 73 From: Bonilla Martel MD Attending Dr: Dr. Orlando Guevara DO Status: A DM IN Ordering Dr: Edgar Morocho DO Date: 12/06/23 [place] [facility] [place]: F C Admitted: 12/06/23 Test Reason : SOB Blood Pressure : */* mmHG Vent. Rate : 101 BPM Atrial Rate : 101 BPM P-R Int : 130 ms QRS Dur : 68 ms QT Int : 318 ms P-R-T Axes : 1 8 32 degrees QTcB Int : 412 ms Sinus tachycardia Otherwise normal ECG Confirmed by REESE ARNOLD, BONILLA ([id number]), editor dictionary JOIE HUGHES ([id number]) on 12/08/2023 8:14:08 AM Referred By: RAVINDER/LIDA Confirmed By: BONILLA MARTEL MD 12/08/23 0814 Date Bonilla Martel MD CC: Dr. Jennifer Hood MD; Dr. Edgar Morocho DO; Dr. Orlando Guevara DO Signed Normal [facility] Basic Metabolic Profile (BMP )on 12-06-2023 BUN/CRE 14.9 RATIO Normal 11-25 [facility] Comment on above: Performed By: #### L 500.2500 #### [facility] [address] [place], [address] CA,Total 9.3 mg/dL Normal 8.5-10.1 [facility] Comment on above: Performed By: #### L 500.2500 #### [facility] [address] [place], [address] Chloride [Moles/Vol] 98 mmol/L Normal 98-107 [facility] Comment on above: Performed By: #### L 500.2500 #### [facility] [address] [place], [address] CO2 [Moles/Vol] 30.0 mmol/L Normal 21.0-32.0 [facility] Comment on above: Performed By: #### L 500.2500 #### [facility] [address] [place], [address] Creatinine [Mass/Vol] 1.01 mg/dL Normal 0.55-1.02 [facility] Comment on above: Result Comment: The validity of the calculated GFR GFRAA in patients over 70 years has not been determined. Clinical correlation is essential. Performed By: #### L 500.2500 #### [facility] [address] [place], [address] ECRCL 42.41 ml/min Normal [facility] Comment on above: Performed By: #### L 500.2500 #### [facility] [address] [place], [address] EST GFR - AA 69 mL/min Normal >60 [facility] Comment on above: Result Comment: Afri can Swazi GFR Calc Performed By: #### L 500.2500 #### [facility] [address] [place], [address] GAP 6 Normal 5-15 [facility] Comment on above: Performed By: #### L 500.2500 #### [facility] [address] [place], [address] GFR/1.73 sq M.predicted among non-blacks MDRD (S/P/Bld) [Vol rate/Area] 57 mL/min/{1.73_m2} Low >60 [facility] Comment on above: Result Comment: Non- GFR Calc Performed By: #### L 500.2500 #### [facility] [address] [place], [address] Glucose [Mass/Vol] 138 mg/dL High 74-106 [facility] Comment on above: Result Comment: Fast ing Glucose result greater than or equal to 126 mg/dL suggests DIABETES MELLITUS per A.D.A. criteria. Performed By: #### L 500.2500 #### [facility] [address] [place], [address] Potassium [Moles/Vol] 4.2 mmol/L Normal 3.5-5.1 [facility] Comment on above: Result Comment: Mode rate Hemolysis, Result may be falsely increased. Performed By: #### L 500.2500 #### [facility] [address] [place], [address] Sodium [Moles/Vol] 134 mmol/L Low 136-145 [facility] Comment on above: Performed By: #### L 500.2500 #### [facility] [address] [place], [address] Urea nitrogen [Mass/Vol] 15 mg/dL Normal 7-18 [facility] Comment on above: Performed By: #### L 500.2500 #### [facility] [address] [place], [address] CBC W/Diff, Automatedon 10-3 0-2023 Absolute Neut Normal 2.0-7.7 [facility] Comment on above: Result Comment: GYPSYL ICATE ORDER, SEE OTHER FOR RESULTS Performed By: #### M 100.2000, M100.2400 #### [facility] [address] [place], [address] HCT Normal 37-47 [facility] Comment on above: Result Comment: DUPL ICATE ORDER, SEE OTHER FOR RESULTS Performed By: #### M , #### [facility] [address] [place], [address] HGB Normal 12.0-15.0 [facility] Comment on above: Result Comment: DUPL ICATE ORDER, SEE OTHER FOR RESULTS Performed By: #### M , #### [facility] [address] [place], [address] MCH Normal 27.0-32.0 [facility] Comment on above: Result Comment: DUPL ICATE ORDER, SEE OTHER FOR RESULTS Performed By: #### M , #### [facility] [address] [place], [address] MCHC Normal 32-36 [facility] Comment on above: Result Comment: DUPL ICATE ORDER, SEE OTHER FOR RESULTS Performed By: #### M , #### [facility] [address] [place], [address] MCV Normal 81-99 [facility] Comment on above: Result Comment: DUPL ICATE ORDER, SEE OTHER FOR RESULTS Performed By: #### M , #### [facility] [address] [place], [address] NEUT% Normal 47-70 [facility] Comment on above: Result Comment: DUPL ICATE ORDER, SEE OTHER FOR RESULTS Performed By: #### M , #### [facility] [address] [place], [address] PLT Normal 150-450 [facility] Comment on above: Result Comment: DUPL ICATE ORDER, SEE OTHER FOR RESULTS Performed By: #### M , #### [facility] [address] [place], [address] RBC Normal 4.2-5.4 [facility] Comment on above: Result Comment: DUPL ICATE ORDER, SEE OTHER FOR RESULTS Performed By: #### M , #### [facility] [address] [place], [address] RDW CV Normal 11.6-14.6 [facility] Comment on above: Result Comment: DUPL ICATE ORDER, SEE OTHER FOR RESULTS Performed By: #### M , #### [facility] [address] [place], [address] RDW SD Normal 35.1-43.9 [facility] Comment on above: Result Comment: DUPL ICATE ORDER, SEE OTHER FOR RESULTS Performed By: #### M , #### [facility] [address] [place], [address] WBC Normal 4.4-11.0 [facility] Comment on above: Result Comment: DUPL ICATE ORDER, SEE OTHER FOR RESULTS Performed By: #### M , #### [facility] [address] [place], [address] Absolute Lymph 1.91 X10 3/uL Normal 0.83-4.51 [facility] Comment on above: Performed By: #### L 500.2500 #### [facility] [address] [place], [address] Absolute Neut 19.2 X10 3/uL High 2.0-7.7 [facility] Comment on above: Performed By: #### L 500.2500 #### [facility] [address] [place], [address] Basophils/100 WBC (Bld) 0.2 % Normal 0-1 [facility] Comment on above: Performed By: #### L 500.2500 #### [facility] [address] [place], [address] Eosinophils/100 WBC (Bld) 0.1 % Normal 0-5 [facility] Comment on above: Performed By: #### L 500.2500 #### [facility] [address] [place], [address] Erythrocyte distribution width (RBC) [Ratio] 12.4 % Normal 11.6-14.6 [facility] Comment on above: Performed By: #### L 500.2500 #### [facility] [address] [place], [address] Hematocrit (Bld) [Volume fraction] 40.2 % Normal 37-47 [facility] Comment on above: Performed By: #### L 500.2500 #### [facility] [address] [place], [address] Hemoglobin (Bld) [Mass/Vol] 13.2 g/dL Normal 12.0-15.0 [facility] Comment on above: Performed By: #### L 500.2500 #### [facility] [address] [place], [address] IG% 1.200 High 0.0-0.9 [facility] Comment on above: Result Comment: IG% - Immature Granulocytes (promyelocytes, myelocytes and metamyelocytes) > 1% indicates that a LEFT SHIFT is Present. Performed By: #### L 500.2500 #### [facility] [address] [place], [address] Lymphocytes/100 WBC (Bld) 8.4 % Low 19-41 [facility] Comment on above: Performed By: #### L 500.2500 #### [facility] [address] [place], [address] MCH (RBC) [Entitic mass] 29.1 pg Normal 27.0-32.0 [facility] Comment on above: Performed By: #### L 500.2500 #### [facility] [address] [place], [address] MCHC (RBC) [Mass/Vol] 32.8 g/dL Normal 32-36 [facility] Comment on above: Performed By: #### L 500.2500 #### [facility] [address] [place], [address] MCV (RBC) [Entitic vol] 88.7 fL Normal 81-99 [facility] Comment on above: Performed By: #### L 500.2500 #### [facility] [address] [place], [address] Monocytes/100 WBC (Bld) 5.6 % Normal 0-10 [facility] Comment on above: Performed By: #### L 500.2500 #### [facility] [place], [address] Neutrophils/100 WBC (Bld) 84.5 % High 47-70 [facility] Comment on above: Performed By: #### L 500.2500 #### [facility] [address] [place], [address] Nucleated RBC (Bld) [#/Vol] 0 10*3/uL Normal 0-5 [facility] Comment on above: Performed By: #### L 500.2500 #### [facility] [address] [place], [address] Platelet mean volume (Bld) [Entitic vol] 9.5 fL Normal 6.2-12.0 [facility] Comment on above: Performed By: #### L 500.2500 #### [facility] [address] [place], [address] Platelets (Bld) [#/Vol] 309 10*3/uL Normal 150-450 [facility] Comment on above: Performed By: #### L 500.2500 #### [facility] [address] [place], [address] RBC (Bld) [#/Vol] 4.53 10*6/uL Normal 4.2-5.4 [facility] Comment on above: Performed By: #### L 500.2500 #### [facility] [address] [place], [address] RDW SD 40.1 fl Normal 35.1-43.9 [facility] Comment on above: Performed By: #### L 500.2500 #### [facility] [address] [place], [address] WBC (Bld) [#/Vol] 22.7 10*3/uL High 4.4-11.0 [facility] Comment on above: Performed By: #### L 500.2500 #### [facility] [address] [place], [address] CTA Chest W/WO Contraston CTA Chest W/WO Contrast [facility] Imaging Services [address] [place] [address] CTA Chest W/WO Contrast MR#: [id number] Acct: [id number] Name: PATIENCE VALDES Rep #: [id number] : 1950 F 73 From: Alivia lewis MD PCP: Dr. Jennifer Hood MD Status: [facility] ER Study: CTA Chest W/WO Contrast Date of Exam: 12/06/23 Exam# [id number] Ordering Dr: Edgar Morocho DO -[id number] HISTORY: SOB and asthma, evaluate for pulmonary embolism. TECHNIQUE: CT angiogram of the chest was performed after the intravenous administration of 75 mL Isovue-370. Post-processing of the angiographic images was performed with multiplanar reformation and 3D reconstruction. Individualized dose optimization techniques were used for this CT. 1114 images. COMPARISON: XR same day. FINDINGS: CENTRAL AIRWAYS: Patent. LUNGS: Mild bilateral bronchiectasis. Mild linear atelectasis in the bilateral upper and middle lobes. Tree-in-bud nodular opacities with groundglass opacities and alveolar consolidation in the right lower lobe. Mild tree-in-bud opacities in the left upper lobe, lingula, and left lower lobe with dependent atelectasis also noted. PLEURA: No pneumothorax or significant pleural effusion. HEART/PERICARDIUM: Heart within normal limits in size with coronary artery disease. Trace pericardial effusion. PULMONARY ARTERIES: No filling defect. AORTA/VESSELS: Tortuous aorta without aneurysm or dissection flap. Mild atherosclerosis. MEDIASTINUM/ANOOP: Mildly enlarged precarinal and subcarinal lymph nodes, likely reactive. OSSEOUS STRUCTURES: Degenerative change and moderate scoliosis. UPPER ABDOMEN: Moderate hiatal hernia with adjacent surgical clips. CT/CTA Chest W/WO Contrast IMPRESSION: Mild bilateral bronchiolitis with right lower lobe consolidation concerning for pneumonia. No evidence of pulmonary embolism. Moderate hiatal hernia. Electronically Signed: Alivia Keller MD at 15:58 EDT , CC: Dr. Jennifer Hood MD; Dr. Edgar Morocho DO Senior Integration Architect: Signed Normal [facility] Chest 1 View (Portable)on Chest 1 View (Portable) [facility] Imaging Services [address] [place] [address] Chest 1 View (Portable) MR#: [id number] Acct: [id number] Name: PATIENCE VALDES Rep #: [id number] : 1950 F 73 From: Alivia lewis MD PCP: Dr. Jennifer Hood MD Status: REG ER Study: Chest 1 View (Portable) Date of Exam: 12/06/23 Exam# [id number] Ordering Dr: Edgar Morocho DO -[id number] HISTORY: SOB. TECHNIQUE: XR Chest 1 View. COMPARISON: 08/13/2020. FINDINGS: CARDIOMEDIASTINAL BORDERS: Cardiac silhouette within normal limits in size. Mediastinal contour unchanged with calcification of the aortic knob and mild tortuosity of the aorta. LUNGS: Mild linear bibasilar opacities. PLEURA: No pleural effusion or pneumothorax seen. OSSEOUS STRUCTURES: Scoliosis and degenerative change. RAD/Chest 1 View (Portable) IMPRESSION: Mild bibasilar atelectasis. Electronically Signed: Alivia Keller MD at 11:19 EDT , CC: Dr. Jennifer Hood MD; Dr. Edgar Morocho DO Senior Integration Architect: Signed Normal [facility] Comprehensive Metabolic Prof ilon 12-06-2023 Albumin [Mass/Vol] 3.2 g/dL Normal 3.2-5.0 [facility] Comment on above: Performed By: #### L 500.2500 #### [facility] [address] [place], [address] Albumin/Globulin [Mass ratio] 0.7 {ratio} Low 0.9-2.4 [facility] Comment on above: Performed By: #### L 500.2500 #### [facility] [address] [place], [address] ALK P 75 U/L Normal 45-117 [facility] Comment on above: Performed By: #### L 500.2500 #### [facility] [address] [place], [address] ALT [Catalytic activity/Vol] 12 U/L Low 13-56 [facility] Comment on above: Performed By: #### L 500.2500 #### [facility] [address] [place], [address] AST [Catalytic activity/Vol] 21 U/L Normal 15-37 [facility] Comment on above: Result Comment: Mode rate Hemolysis, Result may be falsely increased. Performed By: #### L 500.2500 #### [facility] [address] [place], [address] Bilirubin [Mass/Vol] 0.70 mg/dL Normal 0.20-1.00 [facility] Comment on above: Result Comment: For patients on eltrombopag therapy, use of Dimension Evans TBIL is not recommended. Performed By: #### L 500.2500 #### [facility] [address] [place], [address] BUN/CRE 15.2 RATIO Normal 10-20 [facility] Comment on above: Performed By: #### L 500.2500 #### [facility] [address] [place], [address] CA,Total 9.5 mg/dL Normal 8.5-10.1 [facility] Comment on above: Performed By: #### L 500.2500 #### [facility] [address] [place], [address] Chloride [Moles/Vol] 98 mmol/L Normal 98-107 [facility] Comment on above: Performed By: #### L 500.2500 #### [facility] [address] [place], [address] CO2 [Moles/Vol] 27.0 mmol/L Normal 21.0-32.0 [facility] Comment on above: Performed By: #### L 500.2500 #### [facility] [address] [place], [address] Creatinine [Mass/Vol] 1.05 mg/dL High 0.55-1.02 [facility] Comment on above: Result Comment: The validity of the calculated GFR GFRAA in patients over 70 years has not been determined. Clinical correlation is essential. Performed By: #### L 500.2500 #### [facility] [address] [place], [address] ECRCL 40.80 ml/min Normal [facility] Comment on above: Performed By: #### L 500.2500 #### [facility] [address] [place], [address] EST GFR - AA 66 mL/min Normal >60 [facility] Comment on above: Result Comment: Afri can Swazi GFR Calc Performed By: #### L 500.2500 #### [facility] [address] [place], [address] GAP 10 Normal 5-15 [facility] Comment on above: Performed By: #### L 500.2500 #### [facility] [address] [place], [address] GFR/1.73 sq M.predicted among non-blacks MDRD (S/P/Bld) [Vol rate/Area] 54 mL/min/{1.73_m2} Low >60 [facility] Comment on above: Result Comment: Non- GFR Calc Performed By: #### L 500.2500 #### [facility] [address] [place], [address] Globulin (S) [Mass/Vol] 4.6 g/dL High 2.2-4.2 [facility] Comment on above: Performed By: #### L 500.2500 #### [facility] [address] [place], [address] Glucose [Mass/Vol] 138 mg/dL High 74-106 [facility] Comment on above: Result Comment: Fast ing Glucose result greater than or equal to 126 mg/dL suggests DIABETES MELLITUS per A.D.A. criteria. Performed By: #### L 500.2500 #### [facility] [address] [place], [address] Potassium [Moles/Vol] 4.3 mmol/L Normal 3.5-5.1 [facility] Comment on above: Result Comment: Mode rate Hemolysis, Result may be falsely increased. Performed By: #### L 500.2500 #### [facility] [address] [place], [place], [address] Sodium [Moles/Vol] 134 mmol/L Low 136-145 [facility] Comment on above: Performed By: #### L 500.2500 #### [facility] [address] [place], [address] T PROT 7.8 g/dL Normal 6.4-8.2 [facility] Comment on above: Performed By: #### L 500.2500 #### [facility] [address] [place], [place], [address] Urea nitrogen [Mass/Vol] 16 mg/dL Normal 7-18 [facility] Comment on above: Performed By: #### L 500.2500 #### [facility] [address] [place], [place], [address] Emergency Department Summary on 12-06-2023 Emergency Department Summary [facility] Medical Records Department [address] [place] [address] Emergency Department Summary 12/06/23 MR#: [id number] Acct: [id number] Name: PATIENCE VALDES Rep #: [id number] : 1950 73 From: Edgar Morocho DO PCP: Dr. Jennifer Hood MD Status:REG ER Location: ED HPI History of Present Illness Chief Complaint: Shortness of Breath Informant: patient Narrative Narrative: 73-year-old female presenting to the emergency room chief complaint of dyspnea and increased oxygen requirements. Patient reportedly has a diagnosis of bronchiectasis and asthma. She follows locally with pulmonology Dr. Elder. The patient states over the past several days she has felt rattling in her chest and has noticed that she has been requiring more oxygen than normally. The patient typically will wear up to 2 L ambulating now currently wearing 4. She states that over the past couple days she noted her oxygen level to be below 90%. She went to see her doctor yesterday for constipation but states that she did not mention anything with her lungs. She notes chills but no fever. She she feels generalized fatigue. She notes a cough but not any different than normal. Nose butyrin production. She notes the pain in her right side when she lays down but states she believes that is related to a prior back issue. [facility] Medical History (Updated 12/06/23 @ 15:[address] Edgar Morocho DO) Chronic respiratory failure with hypoxia Asthma, moderate persistent Hypersomnia Hiatal hernia GERD (gastroesophageal reflux disease) Lumbar back pain Hip pain Greater trochanteric bursitis Left knee pain Neuropathy Snoring Sinus pain Hypoxia Hypothyroidism Acute respiratory failure with hypoxia Acute exacerbation of bronchiectasis Influenza A Chronic back pain Scoliosis Bronchiectasis Home Medications ???Medication ???Instructions ???Recorded ???Last Taken ???Type calcium 600 mg (as carbonate)-vit 1 ea PO DAILY 04/01/16 03/31/16 History D3 10 mcg (400 unit) chewable tablet multivitamin 1 ea PO DAILY 04/01/16 03/31/16 History levothyroxine 150 mcg tablet 88 mcg PO DAILY 03/01/17 Unknown History alendronate 70 mg tablet (Fosamax) 70 mg PO QWEEK 06/27/19 Unknown History mecobalamin (vitamin B12) 500 mcg mcg PO 09/15/22 Unknown History chewable tablet albuterol sulfate 2.5 mg/3 mL 2.5 mg (3 mL) inhalation Q6H PRN 02/08/23 Unknown Rx (0.083 %) solution for nebulization PRN J45.40, asthma #120 vials albuterol sulfate 90 mcg/actuation 2 puff inhalation Q6H PRN 03/16/23 Unknown Rx aerosol inhaler (Ventolin HFA) shortness of breath or wheezing #1 device fluticasone 250 mcg-salmeterol 50 1 inh inhalation BID #3 device 10/11/23 Unknown Rx mcg/dose blistr powdr for inhalation (Advair Diskus) Allergy/AdvReac Type Severity Reaction Status Date / Time No Known Allergies Allergy Verified 09/29/23 09:11 Family History Father Heart disease Father Heart disease Surgical History S/P epidural steroid injection History of repair of hiatal hernia EGD, bronchoscopy H/O section Social History Smoking Status: Former smoker quit date: 02/07/04 pack-years: 30 Tobacco: How many years used: 30 how long ago did patient quit smokin second hand exposure: No alcohol intake: never substance use type: does not use ROS ROS ED ROS Narrative Generalized weakness/fatigue Constitutional Constitutional ED: Reports chills; Denies fever(s) or weight loss Eyes Eyes: Denies change in vision or diplopia ENT ENT ED: Denies ear pain, rhinorrhea or sore throat Cardiovascular Cardiovascular: Denies chest pain, orthopnea, palpitations or racing heartbeat Respiratory/Chest Respiratory/Chest: Reports cough, dyspnea and dyspnea on exertion; Denies orthopnea Gastrointestinal Gastrointestinal: Denies abdominal pain, diarrhea, nausea or vomiting Genitourinary Genitourinary ED: Reports other Details: Right low back/flank pain ; Denies dysuria, hematuria or urinary frequency Musculoskeletal Musculoskeletal: Reports back pain; Denies arthralgias or myalgias Integumentary Denies abscess or rash Neurologic Neurologic: Denies headache(s) or weakness Psychiatric Psychiatric: Denies anxiety, depression, suicidal ideation or suicidal thoughts Endocrine Endocrinology: Denies polydipsia, polyphagia or polyuria Allergic/Immunologi c Allergic/Immunologi c ED: Denies mouth swelling, tongue swelling or urticaria EXAM Physical Exam Const Vital Signs: 12/06/23 10:09 12/06/23 10:52 12/06/23 10:54 Temperature 97.4 F L 97.4 F L Temperature Source Oral Oral Pulse Rate 1 (more content not included)... Normal [facility] H AND P Exam - [facility] 12-06-2023 H&P Exam - Hospitalist [facility] Medical Records Department [address] [place] [address] H P Exam - Hospitalist 12/06/23 1629 MR#: [id number] Acct: [id number] Name: PATIENCE VALDES Rep #: [id number] : 1950 73 From: Damien Mariano DO PCP: Dr. Jennifer Hood MD Status:ADM IN Location: MS3 [id number] [facility] - General General Date of Service: 12/06/23 Chief Complaint: increased oxygen demands. HPI Narrative PATIENCE VALDES, is a 73 F with chronic bronchiectasis who presents with increased oxygen demands. Patient is on oxygen at 2 L/min but has steadily increased that over the past few days to 4 L/min. Also during this time, she has had some increased chills, coughing with clear phlegm. Overall did not feel sick but presented to the emergency room for evaluation. They evaluated her in the emergency room and she was found to have a right lower lobe pneumonia. In the ED, she received ceftriaxone and azithromycin. [facility] Medical History Osteopenia after menopause Former smoker On home oxygen therapy Chronic respiratory failure with hypoxia Asthma, moderate persistent Hypersomnia Hiatal hernia GERD (gastroesophageal reflux disease) Lumbar back pain Hip pain Greater trochanteric bursitis Left knee pain Neuropathy Snoring Sinus pain Hypoxia Hypothyroidism Acute respiratory failure with hypoxia Acute exacerbation of bronchiectasis Influenza A Chronic back pain Scoliosis Bronchiectasis Home Medications ???Medication ???Instructions ???Recorded ???Last Taken ???Type calcium 600 mg (as carbonate)-vit 1 ea PO DAILY 04/01/16 03/31/16 History D3 10 mcg (400 unit) chewable tablet multivitamin 1 ea PO DAILY 04/01/16 03/31/16 History levothyroxine 150 mcg tablet 88 mcg PO DAILY 03/01/17 Unknown History alendronate 70 mg tablet (Fosamax) 70 mg PO QWEEK 06/27/19 Unknown History mecobalamin (vitamin B12) 500 mcg mcg PO 09/15/22 Unknown History chewable tablet albuterol sulfate 2.5 mg/3 mL 2.5 mg (3 mL) inhalation Q6H PRN 02/08/23 Unknown Rx (0.083 %) solution for nebulization PRN J45.40, asthma #120 vials albuterol sulfate 90 mcg/actuation 2 puff inhalation Q6H PRN 03/16/23 Unknown Rx aerosol inhaler (Ventolin HFA) shortness of breath or wheezing #1 device fluticasone 250 mcg-salmeterol 50 1 inh inhalation BID #3 device 10/11/23 Unknown Rx mcg/dose blistr powdr for inhalation (Advair Diskus) Allergy/AdvReac Type Severity Reaction Status Date / Time No Known Allergies Allergy Verified 09/29/23 09:11 Family History Father Heart disease Father Heart disease Surgical History S/P epidural steroid injection History of repair of hiatal hernia EGD, bronchoscopy H/O section Social History Smoking Status: Former smoker quit date: 02/07/04 pack-years: 30 Tobacco: How many years used: 30 how long ago did patient quit smokin second hand exposure: No alcohol intake: never substance use type: does not use Vital Signs Vital Signs Vital Signs: 12/06/23 10:09 12/06/23 10:52 12/06/23 10:54 Temperature 36.3 C L 36.3 C L Temperature Source Oral Oral Pulse Rate 101 H 101 H Respiratory Rate 22 H 22 H Respiratory Effort Respiratory Depth Respiratory Pattern Blood Pressure 130/66 H 130/66 H Blood Pressure Mean 87 87 Pulse Ox 96 96 94 Oxygen Delivery Method Nasal Cannula Room Air Nasal Cannula Oxygen Flow Rate (L/min) 4 4 12/06/23 11:10 12/06/23 12:12 12/06/23 12:30 Temperature 36.7 C Temperature Source Temporal Pulse Rate 85 91 Respiratory Rate 16 20 H Respiratory Effort Normal Respiratory Depth Normal Respiratory Pattern Normal Blood Pressure 111/65 Blood Pressure Mean 80 Pulse Ox 95 Oxygen Delivery Method Nasal Cannula Nasal Cannula Oxygen Flow Rate (L/min) 4 12/06/23 13:12 12/06/23 15:50 Temperature 35.7 C L 36.5 C L Temperature Source Temporal Temporal Pulse Rate 89 81 Respiratory Rate 22 H 20 H Respiratory Effort Respiratory Depth Respiratory Pattern Blood Pressure 131/62 H 111/71 Blood Pressure Mean 85 84 Pulse Ox 96 97 Oxygen Delivery Method Nasal Cannula Nasal Cannula Oxygen Flow Rate (L/min) 4 4 Weight Weight: 64.41 kg Body Mass Index (BMI) 25.1 Physical Exam Const alert and no apparent distress General Appearance: cooperative HEENT normocephalic and hearing grossly normal bilaterally Eyes Eyes Narrative: no icterus. glasses. Neck no lymphadenopathy Neck Narrative: No thyromegaly Resp normal respiratory effort and no re (more content not included)... Normal [facility] Lactic Acidon 12-06-2023 Lactate [Moles/Vol] 2.3 mmol/L Invalid Interpretation Code 0.4-1.9 [facility] Comment on above: Result Comment: Crit ical Result(s) Called at: 18:10:44 12/06/2023 by: Rufina Conley to Lisa Henriquez. Results read back by same. Performed By: #### L 503.6005 #### [facility] [address] [place], [address] Lactate [Moles/Vol] 2.2 mmol/L Invalid Interpretation Code 0.4-1.9 [facility] Comment on above: Order Comment: Order Date: 04/22/24 Order Info: 0667-1 - BMP Order Info: 13531-0 - MG Order Info: 3016-3 - TSH Result Comment: Crit ical Result(s) Called at: 13:01:48 12/06/2023 by: Rufina Conley to Arnold Brandt. Results read back by same. Performed By: #### L 500.2500 #### [facility] [address] [place], [address] M100.678on 12-06-2023 M100.678 Pending SARS-CoV-2 (COVID 19) Negative INFLUENZA A Negative INFLUENZA B Negative RSV PCR Negative Normal [facility] Comment on above: Performed By: #### M 100.678, M100.2200, L400.0001 #### [facility] [address] [place], [address] Partial Thromboplast Timeon 12-06-2023 aPTT Coag (Bld) [Time] 25.7 s Normal 24.1-36.2 [facility] Comment on above: Order Comment: TRISTAN Thakur PREVIOUS SPECIMEN REJECTED DUE TOSPECIMEN BEING HEMOLYZED. 12/06/231218 Brody Mercerr. Performed By: #### M 100.1999, M100.2400 #### [facility] [address] [place], [address] Prothrombin Time w/INRon INR Coag (PPP) [Relative time] 1.1 {INR} Normal [facility] Comment on above: Order Comment: REDRA W. PREVIOUS SPECIMEN REJECTED DUE TOSPECIMEN BEING HEMOLYZED. 12/06/231218 Brody Mercerr. Performed By: #### M 100.1999, M1.2400 #### [facility] [address] [place], [address] PT Coag (PPP) [Time] 14.5 s Normal 11.7-14.9 [facility] Comment on above: Order Comment: REDRA W. PREVIOUS SPECIMEN REJECTED DUE TOSPECIMEN BEING HEMOLYZED. 12/06/231218 Brody Mercerr. Performed By: #### M 100.1999, .2400 #### [facility] [address] [place], [address] INR Normal [facility] Comment on above: Result Comment: This specimen has been REJECTED due to Laboratory criteria: Hemolyzed. MARY has been notified of need of recollection. 12/06/231216 Brody Mercerr Performed By: #### M 100.1999, .240 #### [facility] [address] [place], [address] PROTIME Normal 11.7-14.9 [facility] Comment on above: Result Comment: This specimen has been REJECTED due to Laboratory criteria: Hemolyzed. MARY has been notified of need of recollection. 12/06/231216 Brody Mercerr Performed By: #### M 100.1999, M1.2400 #### [facility] [address] [place], [address] Urinalysis, Completeon 12-05 WBC 0-5 SEEN Normal 0-5 [facility] Comment on above: Order Comment: COLLE CTOR TO SPECIFY Performed By: #### M 100.678, M100.2200, L400.0001 #### [facility] [address] [place], [address] BACTERIA 1+ /hpf Normal None Seen [facility] Comment on above: Order Comment: COLLE CTOR TO SPECIFY Performed By: #### M 100.678, M100.2200, L400.0001 #### [facility] [address] [place], [address] Mucus Ql (Urine sed) 2+ /hpf Normal [facility] Comment on above: Order Comment: [facility] CTOR TO SPECIFY Performed By: #### M 100.678, M100.2200, L400.0001 #### [facility] [address] [place], [address] EPI,SQUAMOUS 0 SEEN Normal 5-10 [facility] Comment on above: Order Comment: [facility] CTOR TO SPECIFY Performed By: #### M 100.678, M100.2200, L400.0001 #### [facility] [address] [place], [address] RBC 0 SEEN Normal 0-5 [facility] Comment on above: Order Comment: [facility] CTOR TO SPECIFY Performed By: #### M 100.678, M100.2200, L400.0001 #### [facility] [address] [place], [address] HIP, UNI W/ Pelvis 2-3 Views on 11-14-2023 HIP, UNI W/ Pelvis 2-3 Views [facility] [address] [place] [address] HIP, UNI W/ Pelvis 2-3 Views MR#: [id number] Acct: [id number] Name: PATIENCE VALDES KAMILA Rep #: [id number] : 1950 F 73 From: Joi Murray PCP: Dr. Jennifer Hood MD Status: REG CLI Study: HIP, UNI W/ Pelvis 2-3 Views Date of Exam: 09/29 Exam# [id number] Ordering Dr: Jacquelyn Gtz MD -[id number] INDICATION: RIGHT HIP EXAMINATION/TECHNIQ UE: X-RAY - XR Hip Unilateral with Pelvis when performed; 2-3 Views COMPARISON: No relevant prior comparison study available FINDINGS: PELVIC BONES: No displaced fracture, destructive or sclerotic lesions. Note that overlapping bowel shadows may however obscure fine detail. Sacroiliac joints demonstrate mild degenerative arthrosis. No widening of the pubic symphysis. HIPS: The articular structures are unremarkable. No displaced fracture seen in this frontal view. SOFT TISSUES: No soft tissue swelling or gas. RAD/HIP, UNI W/ Pelvis 2-3 Views IMPRESSION: Mild degenerative arthrosis in the SI joints. Electronically Signed: Joi Jasmine MD at 8:09 EDT Reading Location ID and State: [address] [place] [address] Tel , Service support , CC: Dr. Jennifer Hood MD; Dr. Jacquelyn Gtz MD Senior Integration Architect: Signed Normal [facility] PT D/C Summary (1)on 024 PT D/C Summary (1) [facility] Physical Therapy [facility] [address] [place] [address] [address] [place] [address] / REHABILITATION SERVICES DISCHARGE SUMMARY MR#: [id number] Acct: [id number] Name: PATIENCE VALDES Rep #: [id number] : 1950 73 From: Quintin Garcia PT, ATC Referring Dr.: Dr. Jennifer Hood MD Status: RE G RCR Insurance: [employer] PPO SELF PAY INSURANCE Discharge Summary D/C summary: It has been my pleasure to treat PATIENCE VALDES referred by Dr. Jennifer Hood MD, with the diagnosis of Kyphoscoliosis and LBP for a total of 3 visit(s). Discharge Date: Please see the following information for a summary of their discharge status. Subjective Subjective: I am all better. I dont have any more pain now Pain LBP: Pain Intensity (Out of 10): 0 Overall Improvement % Improvement: 100 Objective Objective/Function: Pt is now I with HEP 0/10 LBP Pt is able to perform 8 sit to stand transfers in 19 seconds Goals Goal 1:: Pt will be I with HEP in 1-2 visits Goal Progress: Goal Met Goal 2:: Decrease LBP x 50% to aid with sleep Goal Progress: Goal Met Goal 3:: Pt will perform 8 sit to stands in 30 seconds with no UE's to aid with community mobility Goal Progress: Goal Met Plan Plan: Discharge to [facility] D/C Information d/c sentence: If there are questions or concerns regarding this patient's physical therapy, please feel free to call me at [phone]. Thank you for the referral of this patient. Sincerely, Quintin Garcia, PT, ATC Balance/Gait/Functi onal tests Balance/Special Test Scores Oswestry Low Back Score: 6 Improvement % Improvement: 100 10/30/23 1023 CC: Dr. Jennifer Hood MD [facility] Signed Normal [facility] Basophil percentageOrdered B y: Jennifer Hood on 09-06-2022 Cholesterol [Mass/Vol] 217 mg/dL <200 [facility] Comment on above: <200 mg/dL Desirable 200-240 mg/dL Borderline >240 mg/dL High Risk Triglyceride [Mass/Vol] 123 mg/dL <199 [facility] Comment on above: The drugs N-Acetylcy steine and Metamizole may falsely depress this assay.Serum Triglycerides Reference Interval Normal <150 mg/dL Borderline high 150 - 199 mg/dL High 200 - 499 mg/dL Very High > or = 500 mg/dL Laboratory - Chemistry and C hemistry - challengeOrdered By: Jennifer Hood on 09-06-2022 T4 [Mass/Vol] 12.9 ug/dL 4.8-13.9 [facility] No Panel InformationOrdered By: Jennifer Hood on 09-06-2022 Thyroid Stimulating Hormone (TSH) 1.19 uIU/mL 0.358-3.74 [facility] Vitamin D 25-Hydroxy 32.2 ng/mL [facility] Comment on above: Vitamin D 25(OH) Sta tus Range Deficiency <20 ng/mL (50nmol/L) Insufficiency 20 - 30 ng/mL (50 - 75 nmol/L) Sufficiency 30 - 100 ng/mL (75 - 250 nmol/L) Toxicity >100 ng/mL (>250 nmol/L) Serum or plasma cholesterol in HDL measurement (mass/volume)Ordered By: Jennifer Hood on 09-06-2022 Cholesterol in HDL [Mass/Vol] 76 mg/dL >40 [facility] Comment on above: The drugs N-Acetylcy steine and Metamizole may falsely depress this assay. Reference Range HDL <40 mg/dL Low HDL Cholesterol HDL >or= 60 mg/dL High HDL Cholesterol Serum or plasma cholesterol in VLDL measurement (mass/volume)Ordered By: Jennifer Hood on 09-06-2022 Cholesterol in VLDL [Mass/Vol] 25 mg/dL 5-40 [facility] Serum or plasma low density lipoprotein (LDL) cholesterol measurement (mass/volume)Ordered By: Jennifer Hood on 09-06-2022 Cholesterol in LDL [Mass/Vol] 116 mg/dL 0-130 [facility] Laboratory - Chemistry and C hemistry - challengeon 08-20-2021 T4 [Mass/Vol] 10.9 ug/dL 4.8-13.9 [facility] Work Phone: No Panel Informationon 08-20 Thyroid Stimulating Hormone (TSH) 2.20 uIU/mL 0.358-3.74 [facility] Work Phone: Office Visit: bronchiectasis on 11-29-2016 Documentation of current medications (procedure) Done Invalid Interpretation Code [facility] [place] Work Phone: Tobacco smoking status NHIS Never Invalid Interpretation Code [facility] [place] Work Phone: Tobacco use [facility] Former smoker Invalid Interpretation Code [facility] [place] Work Phone: Office Visit: acuteon 2016 Protein mass conc Done Invalid Interpretation Code [facility] Work Phone: Tobacco smoking status NHIS Never Invalid Interpretation Code [facility] [place] Work Phone: Tobacco smoking status NHIS Former smoker Invalid Interpretation Code [facility] Work Phone: Office Visit: hypoxia and br onchiectasison 09-08-2016 Documentation of current medications (procedure) Done Invalid Interpretation Code [facility] Work Phone: Fall risk assessment Yes Invalid Interpretation Code [facility] Work Phone: Protein mass conc Done [facility] [place] Work Phone: Tobacco smoking status NHIS Never [facility] Work Phone: Tobacco smoking status TXIS Former smoker [facility] Work Phone: Tobacco use [facility] Former smoker Invalid Interpretation Code [facility] Work Phone: Office Visit: bronchiectasis on 08-17-2016 Documentation of current medications (procedure) Done Invalid Interpretation Code [facility] Work Phone: Protein mass conc Done [facility] [place] Work Phone: Tobacco smoking status NHIS Never Invalid Interpretation Code [facility] [place] Work Phone: Tobacco smoking status TXIS Former smoker [facility] Work Phone: Tobacco use [facility] Former smoker Invalid Interpretation Code [facility] [place] Work Phone: Office Visit: wheezingon Documentation of current medications (procedure) Done Invalid Interpretation Code [facility] Work Phone: Protein mass conc Done [facility] [place] Work Phone: Tobacco smoking status NHIS Never Invalid Interpretation Code [facility] [place] Work Phone: Tobacco smoking status [facility] Former smoker [facility] [place] Work Phone: Tobacco use [facility] Former smoker Invalid Interpretation Code [facility] Work Phone: Lab Report: Protein Electrop h, Son 02-24-2014 GE use only - for [employer] import when terms are not otherwise specified . Invalid Interpretation Code [facility] Work Phone: M-SPIKE . Invalid Interpretation Code [facility] Work Phone: Lab Report: CRPon 02-21-2014 C Reactive Protein, semiquantitative result 3.27 Critically high 0.0-3.0 [facility] Work Phone: C-REACTIVE PROT 3.27 Critically high 0.0-3.0 [facility] Work Phone: Lab Report: Erythrocyte Sed Rateon 02-21-2014 ESR Velocity (Bld) 20 mm/h Invalid Interpretation Code 0-30 [facility] Work Phone: Lab Report: Folates, (Folic Acid)on 02-21-2014 Folate mass conc 37.50 ng/mL Critically high 3.1-17.5 [facility] Work Phone: Lab Report: Lipid Profileon 02-21-2014 Cholesterol in HDL mass conc 66 mg/dL Invalid Interpretation Code [facility] Work Phone: Cholesterol in LDL mass conc 115 mg/dL Invalid Interpretation Code 0-130 [facility] Work Phone: Cholesterol mass conc 219 mg/dL Critically high 200 [facility] Work Phone: Lipoprotein.pre-beta mass conc 38 mg/dL Invalid Interpretation Code 5-40 [facility] Work Phone: Triglyceride mass conc 191 mg/dL Invalid Interpretation Code 0-199 [facility] Work Phone: Lab Report: Liver Profileon 02-21-2014 Albumin mass conc 3.6 g/dL Invalid Interpretation Code 3.4-5.0 [facility] Work Phone: ALT enzyme act/vol 28 U/L Invalid Interpretation Code 12-78 [facility] Work Phone: AST enzyme act/vol 19 U/L Invalid Interpretation Code 15-37 [facility] Work Phone: Bilirubin mass conc 0.20 mg/dL Invalid Interpretation Code 0.00-4.00 [facility] Work Phone: Bilirubin.direct mass conc mg/dL Invalid Interpretation Code 0.00-0.30 [facility] Work Phone: Globulin 3.9 g/dL Invalid Interpretation Code 2.7-4.2 [facility] Work Phone: Globulin mass conc (S) 3.9 g/dL 2.7-4.2 [facility] Work Phone: Protein mass conc 7.5 g/dL Invalid Interpretation Code 6.4-8.2 [facility] Work Phone: Lab Report: Vitamin B12on Cobalamin (Vitamin B12) mass conc 948 pg/mL Critically high 211-911 [facility] Work Phone: vitamin b12, serum 948 pg/mL Critically high 211-911 [facility] [place] Work Phone: Vital Signs Date Time Vital Sign Value Performing Clinician Facility 09-30-2024 07:52-0400 Body mass index (BMI) [Ratio] 25.1 kg/m2 Dr. Jennifer Hood MD Work Phone: [facility] 09-30-2024 07:52-0400 Body temperature 97.3 [degF] Dr. Jennifer Hood MD Work Phone: [facility] 09-30-2024 07:52-0400 Body weight 64.[address] Jennifer Hood MD Work Phone: [facility] 09-30-2024 07:52-0400 Diastolic blood pressure 72 mm[Hg] Dr. Jennifer Hood MD Work Phone: [facility] 09-30-2024 07:52-0400 Heart rate 69 /min Dr. Jennifer Hood MD Work Phone: [facility] 09-30-2024 07:52-0400 Respiratory rate 16 /min Dr. Jennifer Hood MD Work Phone: [facility] 09-30-2024 07:52-0400 SaO2% (BldA) [Mass fraction] 95 % Dr. Jennifer Hood MD Work Phone: [facility] 09-30-2024 07:52-0400 Systolic blood pressure 140 mm[Hg] Dr. Jennifer Hood MD Work Phone: [facility] 09-14-2021 10:49-0400 Body height 160.[address] Jennifer Hood Work Phone: [facility] Work Phone: 09-14-2021 10:38-0400 Body mass index (BMI) [Ratio] 24.6 kg/m2 Dr. Jennifer Hood Work Phone: [facility] Work Phone: 09-14-2021 10:38-0400 Body temperature 97.7 [degF] Dr. Jennifer Hood Work Phone: [facility] Work Phone: 09-14-2021 10:38-0400 Body weight 63.[address] Jennifer Hood Work Phone: [facility] Work Phone: 09-14-2021 10:38-0400 Diastolic blood pressure 77 mm[Hg] Dr. Jennifer Hood Work Phone: [facility] Work Phone: 09-14-2021 10:38-0400 Heart rate 74 /min Dr. Jennifer Hood Work Phone: [facility] Work Phone: 09-14-2021 10:38-0400 Respiratory rate 16 /min Dr. Jennifer Hood Work Phone: [facility] Work Phone: 09-14-2021 10:38-0400 SaO2% (BldA) [Mass fraction] 91 % Dr. Jennifer Hood Work Phone: [facility] Work Phone: 09-14-2021 10:38-0400 Systolic blood pressure 147 mm[Hg] Dr. Jennifer Hood Work Phone: [facility] Work Phone: 07-28-2021 10:41-0400 Body height 160.[address] Jennifer Hood Work Phone: [facility] Work Phone: 07-28-2021 10:41-0400 Body mass index (BMI) [Ratio] 26 kg/m2 Dr. Jennifer Hood Work Phone: [facility] Work Phone: 07-28-2021 10:41-0400 Body temperature 97.4 [degF] Dr. Jennifer Hood Work Phone: [facility] Work Phone: 07-28-2021 10:41-0400 Body weight 66.[address] Jennifer Hood Work Phone: [facility] Work Phone: 07-28-2021 10:41-0400 Diastolic blood pressure 73 mm[Hg] Dr. Jennifer Hood Work Phone: [facility] Work Phone: 07-28-2021 10:41-0400 Heart rate 74 /min Dr. Jennifer Hood Work Phone: [facility] Work Phone: 06-22-2022 10:41-0400 Respiratory rate 16 /min Dr. Jennifer Hood Work Phone: [facility] Work Phone: 07-28-2021 10:41-0400 SaO2% (BldA) [Mass fraction] 93 % Dr. Jennifer Hood Work Phone: [facility] Work Phone: 07-28-2021 10:41-0400 Systolic blood pressure 145 mm[Hg] Dr. Jennifer Hood Work Phone: [facility] Work Phone: 11-29-2016 07:31-0400 BMI (Body Mass Index) 25.4 kg/m2 Berylsirena Benjamin [facility] Work Phone: 11-29-2016 07:31-0400 Body Temperature 97.9 [degF] Berylsirena Benjamin [facility] Work Phone: 11-29-2016 07:31-0400 BP Diastolic 67 mm[Hg] Beryl Sourav [facility] Work Phone: 11-29-2016 07:31-0400 BP Systolic 108 mm[Hg] Berylsirena Benjamin [facility] Work Phone: 11-29-2016 07:31-0400 Height 162.56 cm Berylsirena Benjamin [facility] Work Phone: 11-29-2016 07:31-0400 Inhaled O2 2 Berylsirena Benjamin [facility] Work Phone: 11-29-2016 07:31-0400 Pulse (Heart Rate) 71 /min Beryl Sourav [facility] Work Phone: 11-29-2016 07:31-0400 Respiratory Rate 18 /min Berylsirena Benjamin [facility] Work Phone: 11-29-2016 07:31-0400 Weight 67.13 kg Beryl Sourav [facility] [place] Work Phone: 11-14-2016 08:11-0400 BMI (Body Mass Index) 25.06 kg/m2 Beryl Sourav [facility] Work Phone: 11-14-2016 08:11-0400 Body Temperature 99.1 [degF] Berylsirena Benjamin [facility] [place] Work Phone: 11-14-2016 08:11-0400 BP Diastolic 74 mm[Hg] Beryl Sourav [facility] [place] Work Phone: 11-14-2016 08:11-0400 BP Systolic 131 mm[Hg] Beryl Sourav [facility] [place] Work Phone: 11-14-2016 08:11-0400 Height 162.56 cm Beryl Sourav [facility] [place] Work Phone: 11-14-2016 08:11-0400 Inhaled O2 3 Beryl Sourav [facility] [place] Work Phone: 11-14-2016 08:11-0400 Pulse (Heart Rate) 81 /min Beryl MobSmith [facility] [place] Work Phone: 11-14-2016 08:11-0400 Respiratory Rate 18 /min Beryl Sourav [facility] Work Phone: 11-14-2016 08:11-0400 Weight 66.23 kg Beryl Sourav [facility] [place] Work Phone: 09-08-2016 06:12-0400 BMI (Body Mass Index) 25.06 kg/m2 Paola Haskins [facility] [place] Work Phone: 09-08-2016 06:12-0400 Body Temperature 99 [degF] Paola Haskins [facility] [place] Work Phone: 09-08-2016 06:12-0400 BP Diastolic 80 mm[Hg] Paola Haskins [facility] [place] Work Phone: 09-08-2016 06:12-0400 BP Systolic 145 mm[Hg] Paola Haskins [facility] Work Phone: 09-08-2016 06:12-0400 Height 162.56 cm Paola Jozef [facility] [place] Work Phone: 09-08-2016 06:12-0400 Pulse (Heart Rate) 84 /min Paola Jozef [facility] [place] Work Phone: 09-08-2016 06:12-0400 Respiratory Rate 18 /min Paola Jozef [facility] [place] Work Phone: 09-08-2016 06:12-0400 Weight 66.23 kg Paola Jozef [facility] Work Phone: 08-17-2016 08:07-0400 BMI (Body Mass Index) 24.54 kg/m2 Beryl Sourav [facility] Work Phone: 08-17-2016 08:07-0400 Body Temperature 98.6 [degF] Berylsirena Benjamin [facility] Work Phone: 08-17-2016 08:07-0400 BP Diastolic 78 mm[Hg] Beryl Benjamin [facility] [place] Work Phone: 08-17-2016 08:07-0400 BP Systolic 149 mm[Hg] Beryl Benjamin [facility] Work Phone: 08-17-2016 08:07-0400 Height 162.56 cm Beryl Benjamin [facility] Work Phone: 08-17-2016 08:07-0400 Pulse (Heart Rate) 82 /min Beryl Benjamin [facility] [place] Work Phone: 08-17-2016 08:07-0400 Respiratory Rate 18 /min Beryl MobSmith [facility] Work Phone: 08-17-2016 08:07-0400 Weight 64.86 kg Beryl York [facility] [place] Work Phone: 08-03-2016 08:35-0400 BMI (Body Mass Index) 23 kg/m2 Elizabeth Yensho ASSISTANT PROFESSOR OF PHILOSOPHY [facility] [place] Work Phone: 08-03-2016 08:35-0400 Body Temperature 97.2 [degF] Elizabeth Yensho ASSISTANT PROFESSOR OF PHILOSOPHY [facility] [place] Work Phone: 08-03-2016 08:35-0400 BP Diastolic 70 mm[Hg] Elizabeth Yensho ASSISTANT PROFESSOR OF PHILOSOPHY [facility] [place] Work Phone: 08-03-2016 08:35-0400 BP Systolic 120 mm[Hg] Elizabeth Yensho ASSISTANT PROFESSOR OF PHILOSOPHY [facility] [place] Work Phone: 08-03-2016 08:35-0400 Height 162.56 cm Elizabeth Yensho ASSISTANT PROFESSOR OF PHILOSOPHY [facility] [place] Work Phone: 08-03-2016 08:35-0400 Pulse (Heart Rate) 89 /min Elizabeth Yensho ASSISTANT PROFESSOR OF PHILOSOPHY [facility] [place] Work Phone: 08-03-2016 08:35-0400 Pulse Oximetry 90 % Elizabeth Yensho ASSISTANT PROFESSOR OF PHILOSOPHY [facility] [place] Work Phone: 08-03-2016 08:35-0400 Respiratory Rate 18 /min Elizabeth Yensho ASSISTANT PROFESSOR OF PHILOSOPHY [facility] [place] Work Phone: 08-03-2016 08:35-0400 Weight 60.78 kg Elizabeth Yensho ASSISTANT PROFESSOR OF PHILOSOPHY [facility] [place] Work Phone: 02-23-2016 10:13-0500 Body Temperature 98.24 [degF] Elizabeth Yensho ASSISTANT PROFESSOR OF PHILOSOPHY [facility] [place] Work Phone: 02-23-2016 10:13-0500 BSA (Body Surface Area) 1.77 m2 Elizabeth Yensho ASSISTANT PROFESSOR OF PHILOSOPHY [facility] [place] Work Phone: 02-23-2016 10:130500 Height 162.56 cm Elizabeth Radhaho ASSISTANT PROFESSOR OF PHILOSOPHY [facility] [place] Work Phone: 02-23-2016 10:13050 Weight 71.36 kg Elizabeth Yensho ASSISTANT PROFESSOR OF PHILOSOPHY [facility] [place] Work Phone: Encounters Encounter Date Encounter Type Care Provider Facility Start: 10-08-2024 ambulatory Jag Castro lity:[facility] Start: 10-03-2024 Non-patient / Non-visit Tawanna mckeon VIOLIN MAKER HAND-C -[facility] Start: 10-03-[address] Jennifer woody MD Work Phone: -[facility] Start: 10-01-2024 Patient encounter procedure Tawanna Anderson NP-C -Laboratory Specimen Work Phone: Start: 10-01-2024 ambulatory Tawanna Anderson NP Fac ility:[facility] Start: 09-30-2024 End: 09-30-2024 Patient encounter procedure Tawanna Anderson VIOLIN MAKER HAND-C -[facility] Work Phone: Start: 09-30-2024 End: 09-30-[address] Jennifer Hood MD Work Phone: -[facility] Start: 09-16-2024 End: 09-16-[address] Jennifer Hood MD Work Phone: -[facility] Start: 09-16-2024 End: 09-16-[address] Jag Buck MD -[facility] Start: 09-16-2024 End: 09-16-2024 ambulatory Jennifer Hood Facility:[facility] Start: 07-04-2024 End: 07-04-[address] Jennifer Hood MD Work Phone: [facility] Work Phone: Start: 07-04-2024 End: 07-04-[address] Ulises Srivastava MD -Radiology [facility] Work Phone: Start: 07-04-2024 End: 07-04-2024 ambulatory Ulises Srivastava Facility:[facility] Start: 12-06-2023 ambulatory Jennifer Hood Facility: [facility] Start: 12-06-2023 End: 12-08-2023 Evaluation and management of inpatient Orlando Guevara Facility:[facility] Start: 11-14-2023 End: 11-14-2023 ambulatory Littlemacie Gtz Facility:[facility] Start: 10-30-2023 End: 10-30-2023 ambulatory Jennifer Hood Facility:[facility] Start: 09-08-2022 End: 09-08-2022 ambulatory [facility] Work Phone: Start: 09-08-2022 End: 09-08-2022 Patient encounter procedure [facility]-Outpatient Breast Imaging Work Phone: Start: 09-06-2022 End: 09-06-2022 ambulatory [facility] Work Phone: Start: 09-06-2022 End: 09-06-2022 Patient encounter procedure [facility] Start: 12-13-2021 End: 12-13-[address] Jennifer Hood Work Phone: [facility] Work Phone: Start: 12-13-2021 End: 12-13-[address] Jennifer Hood Work Phone: [facility]-Radiology, [facility] Start: 09-14-2021 End: 09-14-[address] Jennifer Hood Work Phone: [facility]-Pulmonary Medicine [facility] Start: 08-26-2021 End: 08-26-[address] Jennifer Hood Work Phone: [facility]-Outpatient Breast Imaging Start: 08-20-2021 End: 08-20-[address] Jennifer Hood Work Phone: [facility] [place] [facility] Start: 07-28-2021 End: 07-28-[address] Jennifer Hood Work Phone: [facility] [place] Procedures Date Procedure Procedure Detail Performing Clinician Start: 10-01-2024 Gram stain microscopy D gonzalo Hood MD Work Phone: Start: 10-01-[address]24 [address] l culture Dr. Jennifer Hood MD Work Phone: Start: 09-16-[address] Jennifer Hood MD Work Phone: Comment on above: Hemolysis present, R esults could be affected. Start: 09-16-2024 Vitamin D, 25-hydrox y measurement Dr. Jennifer Hood MD Work Phone: Comment on above: Vitamin D StatusDefi ciency: <20 ng/mL (50nmol/L)Insufficiency: 20-30 ng/mL (50-75 nmol/L)Sufficiency: 30-100 ng/mL (75-250 nmol/L)Toxicity: >100 ng/mL (>250 nmol/L) Start: 07-04-2024 Complete x-ray serie s of lumbar spine with bending views Dr. Jennifer Hood MD Work Phone: Start: 09-08-2022 Screening mammography Start: 12-13-2021 Radiography of thora cic spine Dr. Jennifer Hood Work Phone: Start: 12-13-2021 X-ray of lumbar spin e, two or three views Dr. Jennifer Hood Work Phone: Start: 08-26-2021 Screening mammography Terri Hood Work Phone: Start: 01-07-2016 End: 02-02-2016 Pulmonary Function Test - complete Catarino Elder Work Phone: Start: 01-07-2016 End: 02-02-2016 Pulmonary Function Test - complete Catarino Elder Work Phone: Start: 11-26-2014 End: 11-26-2014 Documentation of current medications Catarino Elder [employer] Phone: Start: 11-26-2014 End: 02-02-2016 Follow Up Appt 3 months Catarino Elder [employer] Phone: Start: 11-26-2014 End: 02-02-2016 Pulmonary Function Test - complete Catarino Elder [employer] Phone: Start: 11-26-2014 End: 02-02-2016 Pulmonary stress test/simple Catarino Elder Work Phone: Start: 11-26-2014 End: 11-26-2014 Documentation of current medications Catarino Elder [employer] Phone: Start: 11-26-2014 End: 02-02-2016 Follow Up Appt 3 months Catarino Elder [employer] Phone: Start: 11-26-2014 End: 02-02-2016 Pulmonary Function Test - complete Catarino Elder [employer] Phone: Start: 11-26-2014 End: 02-02-2016 Pulmonary stress test/simple Catarino Elder Work Phone: Start: 08-07-2014 End: 08-07-2014 Documentation of current medications Catarino Elder [employer] Phone: Start: 08-07-2014 End: 02-02-2016 Follow Up Appt 3 months Catarino Elder Work Phone: Start: 08-07-2014 End: 02-02-2016 Pulmonary Function Test - complete Catarino Elder [employer] Phone: Start: 08-07-2014 End: 02-02-2016 Pulmonary stress test/simple Catarino Elder Work Phone: Start: 08-07-2014 End: 08-07-2014 Documentation of current medications Catarino Elder [employer] Phone: Start: 08-07-2014 End: 02-02-2016 Follow Up Appt 3 months Catarino Elder Work Phone: Start: 08-07-2014 End: 02-02-2016 Pulmonary Function Test - complete Catarino Elder Work Phone: Start: 08-07-2014 End: 02-02-2016 Pulmonary stress test/simple Catarino Elder Work Phone: H/O: section H/O sectio n Dr. Jennifer Hood Work Phone: Comment on above: 1973 Plan of Treatment Date Care Activity Detail Author Start: 03-07-2017 End: 03-07-2017 Appointment Appointment [facility] [place] Work Phone: Start: 11-29-2016 End: 11-29-2016 Appointment Appointment [facility] [place] Work Phone: Start: 11-14-2016 End: 11-14-2016 [facility] Work Phone: Start: 11-14-2016 End: 11-14-2016 Follow Up Appt 2 weeks Follow Up Appt 2 weeks [facility] Work Phone: Start: 09-08-2016 End: 09-08-2016 Follow Up Appt 6 months Follow Up Appt 6 months [facility] [place] Work Phone: Start: 09-08-2016 End: 09-08-2016 Appointment Appointment [facility] [place] Work Phone: Start: 09-08-2016 End: 09-08-2016 Follow Up Appt 6 months Follow Up Appt 6 months [facility] [place] Work Phone: Start: 08-17-2016 End: 08-17-2016 Appointment Appointment [facility] [place] Work Phone: Start: 08-03-2016 End: 08-03-2016 Appointment Appointment [facility] [place] Work Phone: Start: 02-23-2016 End: 02-23-2016 [facility] [place] Work Phone: Start: 02-23-2016 End: 02-23-2016 Follow Up Appt 6 months Follow Up Appt 6 months [facility] [place] Work Phone: Start: 02-23-2016 End: 02-23-2016 [facility] [place] Work Phone: Start: 02-23-2016 End: 02-23-2016 Follow Up Appt 6 months Follow Up Appt 6 months [facility] Work Phone: Start: 02-04-2016 End: 02-04-2016 [facility] [place] Work Phone: Start: 02-04-2016 End: 02-04-2016 Follow Up Appt 2 weeks Follow Up Appt 2 weeks [facility] [place] Work Phone: Start: 02-04-2016 End: 02-04-2016 [facility] [place] Work Phone: Start: 02-04-2016 End: 02-04-2016 Follow Up Appt 2 weeks Follow Up Appt 2 weeks [facility] Work Phone: Start: 01-07-2016 End: 02-02-2016 Pulmonary Function Test - complete Pulmonary Function Test - complete [facility] Work Phone: Start: 01-07-2016 End: 02-02-2016 Pulmonary Function Test - complete Pulmonary Function Test - complete [facility] [place] Work Phone: Start: 11-03-2015 End: 11-03-2015 [facility] [place] Work Phone: Start: 11-03-2015 End: 11-03-2015 Follow Up Appt 3 months Follow Up Appt 3 months [facility] Work Phone: Start: 11-03-2015 End: 11-03-2015 [facility] Work Phone: Start: 11-03-2015 End: 11-03-2015 Follow Up Appt 3 months Follow Up Appt 3 months [facility] Work Phone: Start: 11-26-2014 End: 02-02-2016 Follow Up Appt 3 months Follow Up Appt 3 months [facility] Phone: Start: 11-26-2014 End: 02-02-2016 Pulmonary Function Test - complete Pulmonary Function Test - complete [facility] [place] Work Phone: Start: 11-26-2014 End: 02-02-2016 Pulmonary stress test/simple Pulmonary stress testing; simple (eg, 6-minute walk) [facility] Phone: Start: 11-26-2014 End: 02-02-2016 Follow Up Appt 3 months Follow Up Appt 3 months [facility] Work Phone: Start: 11-26-2014 End: 02-02-2016 Pulmonary Function Test - complete Pulmonary Function Test - complete [facility] Phone: Start: 11-26-2014 End: 02-02-2016 Pulmonary stress test/simple Pulmonary stress testing; simple (eg, 6-minute walk) [facility] Phone: Start: 08-07-2014 End: 02-02-2016 Follow Up Appt 3 months Follow Up Appt 3 months [facility] Work Phone: Start: 08-07-2014 End: 02-02-2016 Pulmonary Function Test - complete Pulmonary Function Test - complete [facility] Phone: Start: 08-07-2014 End: 02-02-2016 Pulmonary stress test/simple Pulmonary stress testing; simple (eg, 6-minute walk) [facility] Phone: Start: 08-07-2014 End: 02-02-2016 Follow Up Appt 3 months Follow Up Appt 3 months [facility] Work Phone: Start: 08-07-2014 End: 02-02-2016 Pulmonary Function Test - complete Pulmonary Function Test - complete [facility] Phone: Start: 08-07-2014 End: 02-02-2016 Pulmonary stress test/simple Pulmonary stress testing; simple (eg, 6-minute walk) [facility] Phone: Start: 02-20-2014 End: 02-20-2014 *B12FO Vitamin B12 and Folates *B12FO Vitamin B12 and Folates [facility] Phone: Start: 02-20-2014 End: 02-20-2014 *Hepatic Function Panel *Hepatic Function Panel [facility] Phone: Start: 02-20-2014 End: 02-20-2014 *SPEP (Serum Protein Electrophoresis) *SPEP (Serum Protein Electrophoresis) [facility] Phone: Start: 02-20-2014 End: 02-20-2014 C reactive protein (hsCRP) *CRP - C-Reative Protein [facility] Phone: Start: 02-20-2014 End: 02-20-2014 Erythrocyte sedimentation rate *Sedimentation Rate (ESR) [facility] Phone: Start: 02-20-2014 End: 02-20-2014 Radiologic exam knee complete 4/more views X-Ray, Knee [facility] Phone: Start: 02-20-2014 End: 02-20-2014 *B12FO Vitamin B12 and Folates *B12FO Vitamin B12 and Folates [facility] Phone: Start: 02-20-2014 End: 02-20-2014 *Hepatic Function Panel *Hepatic Function Panel [facility] Phone: Start: 02-20-2014 End: 02-20-2014 *SPEP (Serum Protein Electrophoresis) *SPEP (Serum Protein Electrophoresis) [facility] Phone: Start: 02-20-2014 End: 02-20-2014 C reactive protein (hsCRP) *CRP - C-Reative Protein [facility] Phone: Start: 02-20-2014 End: 02-20-2014 Erythrocyte sedimentation rate *Sedimentation Rate (ESR) [facility] Phone: Start: 02-20-2014 End: 02-20-2014 X-ray exam, knee, 4 or more X-Ray, Knee [facility] [place] Work Phone: Bacteria identified in Sputum by Culture [facility] Immunizations Immunization Date Immunization Notes Care Provider Fa wilman 12-01-2015 influenza, injectabl e, quadrivalent, preservative free Dr. Jennifer Hood MD Work Phone: [facility] 12-01-2015 influenza, seasonal, injectable Dr. Jennifer Hood Work Phone: [facility] Payers Date Payer Category Payer Self-pay [id number] 2013 Medicare [id number] 2013 Private Health Insurance [id number] Unknown [id number] Unknown [id number] 2.16.8 [id number] Unknown [id number] 2.16.8 [id number] Unknown [id number] 2.16.8 [id number] Unknown [id number] 2.16.8 [id number] Unknown [id number] 2.16.8 [id number] Unknown [id number] 2.16.8 [id number] Unknown [id number] 2.16.8 [id number] Unknown [id number] 2.16.8 [id number] Unknown [id number] 2.16.8 [id number] Unknown [id number] 2.16.8 [id number] Unknown [id number] 2.16.8 [id number] Unknown [id number] 2.16.8 [id number] Social History Date Type Detail Facility Start: 07-28-2021 End: 09-14-2021 Tobacco smoking status NHIS Unknown if ever smoked [facility] Start: 04-01-2016 None [facility] Start: 04-01-2016 Spouse/ Signif icant Other [facility] Start: 1950 Sex Assigned At Female W [facility] Start: 12-06-2023 Tobacco smoking status NHIS Ex-smoker (finding) [facility] Evaluation note 09-30-2024 Note Date & Type Note Facility 09-30-2024 Evaluation note Diagnosis Onset Date Resolution Bronchiectasis chronic September 9:07am Hypoxia chronic September 30, 025 9:07am [facility] Work Phone: Radiology Diagnostic study note 07-05-2024 Note Date & Type Note Facility 07-05-2024 Radiology Diagnostic study note [facility] Imaging Services [address] [place] [address] L/S Spine w Bend Min 6 Vw MR#: [id number] Acct: [id number] Name: PATIENCE VALDES Rep #: [id number] : 1950 F 74 From: Korey You MD PCP: Dr. Jennifer Hood MD Status: REG CLI Study:L/S Spine w Bend Min 6 Vw Date of Exam: 07/04/24 Exam# [id number] Ordering Dr: Ulises Srivastava MD PROCEDURE: L/S SPINE W BEND MIN 6 VW 07/04/2024 REASON FOR EXAM: LUMBAR SPINE DISC DEGENERATION TECHNIQUE: Five views; AP, bilateral oblique, lateral and coned-down L5-S1 view with 3 obliques and 3 laterals, 8 total images COMPARISON: None available FINDINGS: The study is extremely difficult to interpret/evaluate due to the severe scoliosis and deformity and osteopenia. Multilevel thoracolumbar spondylosis and discogenic change. It is difficult to distinguish T12, L1 and L2 with appearance of possible anterior wedging deformity of L1 and L2. There is severe appearing disc space narrowing and degenerative endplate changes. L3, L4 and L5 vertebral body height appear within limits. [id number] disc space narrowing suggested L2-3. Mild appearing disc space narrowing L3-4. Disc spaces L4-5 and L5-S1 appear within limits. Bilateral multilevel facet degenerative changes noted. RAD/L/S Spine w Bend Min 6 Vw IMPRESSION: The study is extremely difficult to interpret/evaluate due to the severe scoliosis and deformity and osteopenia. Multilevel thoracolumbar spondylosis and discogenic change as above. It is difficult to distinguish T12, L1 and L2 with appearance of possible anterior wedging deformity of L1 and L2. Reading Location: [facility] CC: Dr. Jennifer Hood MD; Dr. Ulises Srivastava MD ~ Senior Integration Architect: Signed [facility] Discharge summary note 12-08-2023 Note Date & Type Note Facility 12-08-2023 Note [facility] Medical Records Department [address] [place] [address] Discharge Summary 12/08/23 0916 MR#: [id number] Acct: [id number] Name: PATIENCE VALDES Rep #: [id number] : 1950 73 From: Orlando Guevara DO PCP: Dr. Jennifer Hood MD Status:DIS IN Location: [facility]3 [id number] Providers Date of Admission: 12/06/23 Date of Discharge: 12/08/23 Primary Care Physician: Dr. Jennifer Hood MD Reason For Visit: PNEUMONIA Diagnosis Discharge Diagnosis (1) Hypoxia: Status: Chronic Code(s): R09.02 - Hypoxemia Plan 1. Right lower lobe community-acquired pneumonia from strep pneumoniae #2 bronchiectasis-complicates care, management, recovery, and prognosis #3 hypothyroidism-patient is on Synthroid #4 chronic hypoxic respiratory failure #5 acute cystitis secondary to Proteus mirabilis Total clinical time spent by myself addressing patient's medical issues, reviewing all of her data, and collaborating with patient's care team: 35 minutes Medications at Discharge Home Medications levothyroxine 150 mcg tablet 88 mcg PO DAILY 03/01/17 alendronate 70 mg tablet (Fosamax) 70 mg PO QWEEK 06/27/19 albuterol sulfate 2.5 mg/3 mL (0.083 %) solution for nebulization 2.5 mg (3 mL) inhalation Q6H PRN PRN J45.40, asthma #120 vials 02/08/23 albuterol sulfate 90 mcg/actuation aerosol inhaler (Ventolin HFA) 2 puff inhalation Q6H PRN shortness of breath or wheezing #1 device 03/16/23 fluticasone 250 mcg-salmeterol 50 mcg/dose blistr powdr for inhalation (Advair Diskus) 1 inh inhalation BID #3 device 10/11/23 Vitamin D3 25 mcg PO DAILY 12/06/23 ascorbic acid (vitamin C) 500 mg tablet (C-500) 500 mg PO DAILY 12/06/23 meloxicam 7.5 mg tablet 7.5 mg PO DAILY 12/06/23 omeprazole 20 mg capsule,delayed release 20 mg PO DAILY 12/06/23 amoxicillin 500 mg-potassium clavulanate 125 mg tablet (Augmentin) 1 tab PO TID #21 tabs 12/08/23 Hospital Course Operations None Procedures None Summary of Care Provided Minutes Spent on Discharge: 31 Hospital Course: 73-year-old white female was seen in the emergency room at [facility] with complaints of increasing dyspnea and low pulse ox at home despite her use of supplemental oxygen. Patient had been adjusting her oxygen upward to maintain her pulse ox above 90%. She noted some chills at home but no fever, she complained of fatigue and she noticed a cough which was more severe than usual. Patient does have a history of bronchiectasis and is currently on chronic oxygen at home. Labs obtained in the emergency room showed white count to be elevated at 22.7, chest x-ray showed mild bibasilar atelectasis, CTA of the chest was performed, there was noted to be mild bilateral bronchiolitis with right lower lobe consolidation concerning for pneumonia. Patient was admitted to [place] [address], placed on aerosol treatments and IV antibiotics, her urine antigen was positive for strep pneumonia as well as her sputum culture. Patient's urine culture was positive for Proteus. Patient's respiratory status improved during her hospital stay and her white blood cell count returned to normal. On 12/08/2023, patient was seen and examined: On examination she appeared in good health and spirits, she does not appear to be in any distress. Vital signs as documented. Skin warm and dry and without overt rashes. Neck without JVD, thyroid appears normal, trachea is midline, neck is supple. Lungs scattered expiratory rhonchi were noted bilaterally. Heart exam notable for regular rhythm, normal sounds and absence of murmurs, rubs or gallops. Abdomen unremarkable and without evidence of organomegaly, masses, or abdominal aortic enlargement, bowel sounds are present in all 4 quadrants, no abdominal tenderness was noted. Extremities nonedematous, no cyanosis was noted, no clubbing was noted. Neuro: Cranial nerves II through XII are grossly intact, no focal motor deficits were noted, sensation to light touch and pinprick is intact, motor exam 5/5 throughout. Psych: Patient is alert and oriented x3, she does not appear anxious or depressed, she does not appear agitated. Patient was felt to be stable for discharge home on 12/08/2023. Weight / BMI Weight Weight: 64.41 kg Body Mass Index (BMI) 25.1 ABG / Lab / Microbiology Data 12/08/23 08:15 12/07/23 06:18 Laboratory: Laboratory Results - last 24 hr 12/08/23 08:15: WBC 9.9, RBC 4.45, Hgb 12.5, Hct 41.0, MCV 92.1, MCH 28.1, MCHC 30.5 L D, RDW Std Deviation 41.2, RDW Coeff of Sophia 12.2, Plt Count 318, MPV 9.6, Immature Gran % (Auto) 0.500, Neut % (Auto) 68.3, Lymph % (Auto) 20.8, [place] % (Auto) 6.3, Eos % (Auto) 3.6, Baso % (Auto) 0.5, Absolute Neuts (auto) 6.8, Absolute Lymphs (auto) 2.06, Nucleated RBC % 0 Microbiology: Microbiology 12/06/23 19:25 Sputum, Expectorated/Coughed Gram Stain - Final 12/06/23 19 (more content not included)... [facility] Evaluation note Note Date & Type Note Facility Evaluation note Diagnosis Onset Date Bronchiectasis chronic [facility] Work Phone: Evaluation note Note Date & Type Note Facility Evaluation note Diagnosis Onset Date Hypoxia acute Asthma, moderate persistent chronic Bronchiectasis chronic Scoliosis chronic [facility] Work Phone: Evaluation note Note Date & Type Note Facility Evaluation note No assessment information availa ble [facility] Work Phone: Hospital Discharge instructions Note Date & Type Note Facility Hospital Discharge instructions Ambulatory OrdersInfectious Disease Location: None Selected [facility] Work Phone: Reason for referral (narrative) Note Date & Type Note Facility Reason for referral (narrative) No reason for referral information available [facility] Work Phone: Chief Complaint and Reason for Visit Chief Complaint Acute/SOB SCREENING Reason for Visit Bronchiectasis Chief Complaint SCREENING 1 Y FU Reason for Visit Hypoxia Asthma, moderate persistent Bronchiectasis Scoliosis Chief Complaint SCREENING Chief Complaint Admit Date XRAY OF THE LUMBAR SPINE July 04, 2024 3:52pm Chief Complaint Admit Date XRAY OF THE LUMBAR SPINE July 04, 2024 3:52pm 1 Y FU September 30, 2024 9: 07am Chief Complaint Admit Date XRAY OF THE LUMBAR SPINE July 04, 2024 3:52pm 1 Y FU September 30, 2024 9: 07am Referral Order October 03, 2024 11 :59am Reason for Visit Admit Date Bronchiectasis September 30, 2024 9: 07am Hypoxia September 30, 2024 9: 07am Advance Directives No Advanced Directives Records Found Advance Directive Response Recorded Date/ Time Living Will Yes April 12, 2016 12:35pm Power of Old Coin Dealer Yes April 12 12:35pm Advance Directive Response Recorded Date/ Time Living Will Yes April 12, 2016 11:35am Power of Old Coin Dealer Yes April 12 11:35am Advance Directive Response Recorded Date/ Time Living Will Yes April 12, 2016 12:35pm Do you have a Healthcare Power of Old Coin Dealer? Yes April 12, 2016 12:35pm Summary Purpose Family History No Family History Records Found Additional Source Comments Goals (unrecognized section and content) Goals may be documented in a n alternate sectionGoals may be documented in an alternate sectionGoals may be documented in an alternate sectionGoals may be documented in an alternate sectionGoals may be documented in an alternate sectionGoals may be documented in an alternate sectionGoals may be documented in an alternate sectionGoals may be documented in an alternate section Care Teams (unrecognized sec tion and content) Team Status: Active Member Role Status Dates Dr. Jennifer Hood MD Family Provider Active Dr. Jennifer Hood MD Primary Care Provider Active Team Status: Inactive Member Role Status Dates Dr. Jennifer Hood MD Primary Care Provider, Attendin g Provider Active Team Status: Active Member Role Status Dates Dr. Jennifer Hood MD Primary Care Prov ider, Attending Provider, Referring Provider Active Team Status: Inactive Member Role Status Dates Dr. Jennifer Hood MD Primary Care Prov ider, Attending Provider, Referring Provider Active Team Status: Inactive Member Role Status Dates Dr. Jennifer Hood MD Primary Care Provider Active Start: July 04, 2024 End: July 04, 2024 Dr. Ulises Srivastava MD Attending Provider Active Start: July 04, 2024 End: July 04, 2024 Dr. Ulises Srivastava MD Referring Provider Active Start: July 04, 2024 End: July 04, 2024 Team Status: Active Member Role/Relationship Status Dates Dr. Jag Buck MD Primary Care Provider Acti ve Team Status: Inactive Member Role/Relationship Status Dates Dr. Jennifer Hood MD Primary Care Provider Active Start: July 04, 2024 End: July 04, 2024 Dr. Ulises Srivastava MD Attending Provider Active Start: July 04, 2024 End: July 04, 2024 Dr. Ulises Srivastava MD Referring Provider Active Start: July 04, 2024 End: July 04, 2024 Team Status: Inactive Member Role/Relationship Status Dates Dr. Jennifer Hood MD Primary Care Provider Active Start: September 16, 2024 End: September 16, 2024 Dr. Jag Buck MD Attending Provider Active Start: September 16, 2024 End: September 16, 2024 Team Status: Inactive Member Role/Relationship Status Dates Dr. Jennifer Hood MD Referring Provider Active Start: September 30, 2024 End: September 30, 2024 Tawanna Anderson NP [employer] Attending Provider Active Start: September 30, 2024 End: September 30, 2024 Dr. Jag Buck MD Primary Care Provider Acti ve Start: September 30, 2024 End: September 30, 2024 Team Status: Active Member Role/Relationship Status Dates Dr. Jag Buck MD Primary Care Provider Acti ve Start: October 01, 2024 ELENO Alberts NP Attending Provider Active Start: October 01, 2024 Tawanna Anderson NP, NP-Mauricio Referring Provider Active Start: October 01, 2024 Team Status: Active Member Role/Relationship Status Dates Dr. Jag Buck MD Primary Care Provider Acti ve Start: October 03, 2024 ELENO Alberts NP Attending Provider Active Start: October 03, 2024 INFORMATION SOURCE (unrecogn ized section and content) DATE CREATED AUTHOR 10/05/2024 [facility] FOR RECORDS PERTAINING TO PATIENTS WHO ARE OR HAVE BEEN ENROLLED IN A CHEMICAL DEPENDENCY/SUBSTANCEABUSE PROGRAM, SOME INFORMATION MAY BE OMITTED. This clinical summary was aggregated from multiple sources. Caution should be exercised in using it in the provision of clinical care. This summary normalizes information from multiple sources, and as a consequence, information in this document may materially change the coding, format and clinical context of patient data. In addition, data may be omitted in some cases. CLINICAL DECISIONS SHOULD BE BASED ON THE PRIMARY CLINICAL RECORDS. [facility] [employer] [facility]. provides no warranty or guarantee of the accuracy or completeness of information in this document.
== END | disposition home or self-care (01) ==
LOC: OPBI 07:21
PROVIDERS: PCP Family Medicine; Referring Provider Family Medicine; Visit Provider Family Medicine
DX: Z12.31 Encounter for screening mammogram for malignant neoplasm of breast (principal)
CPT/HCPCS: 77063; 77067